=== PATIENT | male | born 1955 | race Caucasian/White ===

== ENCOUNTER 2018-05-09 12:40 | Emergency (ER) | payer BC, OTHER ==
[~2018-05-09] VITALS: Ht 188 cm; Wt 98.9 kg
[~2018-05-09 12:40] MED LIST: MULT-963 PO; OMG1KC PO; OXYC-12 PO
--- OUTSIDE RECORDS SUMMARY | 2018-05-09 12:48 | XMS REPORT | CCD ---
Author Author Nicole Hernandez Organization Nicole Hernandez MD, [facility] Address [address] [place] [address] Phone Care Team Providers Care Medicaid Business Analyst Name Role Phone PP Unavailable CCM Unavailable Summary Purpose Interface Exchange Insurance Providers Payer name Policy type / Coverage type Covered democrat ID Effective Begin Date Effective End Date [facility] [employer] [facility] [id number] 2014 Unknown Family history Father Diagnosis Age At Onset Stroke Unknown Hypertension Unknown Hyperlipidemia Unknown Diabetes Unknown Myocardial infarction Unknown Arthritis Unknown Mother Diagnosis Age At Onset Breast cancer Unknown Myocardial infarction Unknown Hyperlipidemia Unknown Hypertension Unknown Arthritis Unknown Sister Diagnosis Age At Onset No Family Disease Entered N/A Son Diagnosis Age At Onset No Family Disease Entered N/A Daughter Diagnosis Age At Onset No Family Disease Entered N/A Social History Social History Element Codes Description Effective Dates Marital status Unknown 04/27/2013 Number of children Unknown 2 04/27/2013 Employment Unknown Currently employed works at [employer] 04/27/[address]: 8183643 Former smoker quit 1980 04/27/2013 Alcohol history Unknown occasionally drinks alcohol 2 weekly 04/27/2013 Has the patient ever used illegal drugs? Unknown Has never used illegal drugs 04/27/2013 Allergies, Adverse Reactions, Alerts Substance Reaction Codes Entered Date Inactivated Date Status * NO KNOWN FOOD ALLERGIES Unknown 04/27/2013 No Inactive Date Active Seasonal Unknown 04/27/2013 No Inactive Date Active [id number] REDUCTASE INHIBITORS myalgias Unknown 2014 No Inactive Date Active Past Medical History Illness Codes Condition Status Onset Date Resolved Date Essential (primary) hypertension ICD-9: 401.1 ICD-10: I10 Active 08/14/2016 Unknown Mixed hyperlipidemia ICD-9: 272.2 ICD-10: E78.2 Active 02/11/2017 Unknown Impaired fasting glucose ICD-9: 790.21 ICD-10: R73.01 Active 03/05/2017 Unknown Other allergic rhinitis ICD-9: 477.8 ICD-10: J30.89 Active 03/05/2017 Unknown Other malaise ICD-9: 780.79 ICD-10: R53.81 Active 03/05/2017 Unknown Encounter for general adult medical examination with abnormal findings ICD-9: V70.0 ICD-10: Z00.01 Active 08/14/2016 Unknown Impaired fasting glucose ICD-9: 790.29 ICD-10: R73.01 Active 08/14/2016 Unknown Mixed hyperlipidemia ICD-9: 272.4 ICD-10: E78.2 Active 08/24/2013 Unknown Abrasion, right lower leg, initial encounter ICD-9: 916.0 ICD-10: S80.811A Active 05/06/2016 Unknown Cough ICD-9: 786.2 ICD-10: R05 Active 05/06/2016 Unknown Essential (primary) hypertension ICD-9: 401.9 ICD-10: I10 Active 08/24/2013 Unknown Pain in left knee ICD- 9: 719.46 ICD-10: M25.562 Active 10/18/2015 Unknown Pain in right knee ICD -9: 719.46 ICD-10: M25.561 Active 10/18/2015 Unknown Bilateral primary osteoarthritis of knee ICD-9: 715.16 ICD-10: M17.0 Active 05/08/2015 Unknown Primary generalized (osteo)arthritis ICD-9: 715.09 ICD-10: M15.0 Active 05/08/2015 Unknown Acute upper respiratory infection, unspecified ICD-9: 465.9 ICD-10: J06.9 Active 01/02/2015 Unknown DIABETES TYPE II ICD-9 : 250.00 Active 07/25/2014 Unknown ESSENTIAL HYPERTENSION ICD-9: 401.9 Active 08/24/2013 Unknown Routine medical exam ICD-9: V70.0 Active 11/07/2014 Unknown Diabetes Unknown Active 07/26/2014 Unknown Rash ICD-9: 782.1 Active 06/17/2014 Unknown Elevated hemoglobin ICD-9: 282.7 Active 04/14/2014 Unknown Elevated blood sugar ICD-9: 790.29 Active 04/05/2014 Unknown Right flank pain ICD-9 : 789.09 Active 04/05/2014 Unknown Sacroiliitis ICD-9: 720.2 Active 04/05/2014 Unknown TMJ arthralgia ICD-9: 524.62 Active 10/04/2013 Unknown Elevated bilirubin ICD -9: 782.4 Active 08/24/2013 Unknown HYPERLIPIDEMIA ICD-9: 272.4 Active 08/24/2013 Unknown Hyperlipidemia Unknown Active 05/11/2013 Unknown Hernia Unknown Active 08/30/2012 Unknown Hypertension Unknown Active 04/27/2013 Unknown kidney stones Unknown Active 04/27/2013 Unknown External hordeolum ICD -9: 373.11 Active 04/27/2013 Unknown Problems Condition Codes Effective Dates Condition Status Essential (primary) hypertension ICD-9: 401.1 ICD-10: I10 08/14/2016 Active Mixed hyperlipidemia ICD-9: 272.2 ICD-10: E78.2 02/11/2017 Active Impaired fasting glucose ICD-9: 790.21 ICD-10: R73.01 03/05/2017 Active Other allergic rhinitis ICD-9: 477.8 ICD-10: J30.89 03/05/2017 Active Other malaise ICD-9: 780.79 ICD-10: R53.81 03/05/2017 Active Encounter for general adult medical examination with abnormal findings ICD-9: V70.0 ICD-10: Z00.01 08/14/2016 Active Impaired fasting glucose ICD-9: 790.29 ICD-10: R73.01 08/14/2016 Active Mixed hyperlipidemia ICD-9: 272.4 ICD-10: E78.2 08/24/2013 Active Abrasion, right lower leg, initial encounter ICD-9: 916.0 ICD-10: S80.811A 05/06/2016 Active Cough ICD-9: 786.2 ICD-10: R05 05/06/2016 Active Essential (primary) hypertension ICD-9: 401.9 ICD-10: I10 08/24/2013 Active Pain in left knee ICD- 9: 719.46 ICD-10: M25.562 10/18/2015 Active Pain in right knee ICD -9: 719.46 ICD-10: M25.561 10/18/2015 Active Bilateral primary osteoarthritis of knee ICD-9: 715.16 ICD-10: M17.0 05/08/2015 Active Primary generalized (osteo)arthritis ICD-9: 715.09 ICD-10: M15.0 05/08/2015 Active Acute upper respiratory infection, unspecified ICD-9: 465.9 ICD-10: J06.9 01/02/2015 Active DIABETES TYPE II ICD-9 : 250.00 07/25/2014 Active ESSENTIAL HYPERTENSION ICD-9: 401.9 08/24/2013 Active Routine medical exam ICD-9: V70.0 11/07/2014 Active Diabetes Unknown 07/26/2014 Active Rash ICD-9: 782.1 06/17/2014 Active Elevated hemoglobin ICD-9: 282.7 04/14/2014 Active Elevated blood sugar ICD-9: 790.29 04/05/2014 Active Right flank pain ICD-9 : 789.09 04/05/2014 Active Sacroiliitis ICD-9: 720.2 04/05/2014 Active TMJ arthralgia ICD-9: 524.62 10/04/2013 Active Elevated bilirubin ICD -9: 782.4 08/24/2013 Active HYPERLIPIDEMIA ICD-9: 272.4 08/24/2013 Active Hyperlipidemia Unknown 05/11/2013 Active Hernia Unknown 08/30/2012 Active Hypertension Unknown 04/27/2013 Active kidney stones Unknown 04/27/2013 Active External hordeolum ICD -9: 373.11 04/27/2013 Active Medications Medication Codes Instructions Start Date Stop Date Status Fill Instructions metoprolol succinate ER 25 mg tablet,extended release 24 hr RxNorm: 634573 1 TABLET(S) PO DAILY 1 TABLET(S) PO DAILY 04/30/2018 03/25/2019 Active Zithromax Z-Kennedy 250 mg tablet RxNorm: 913439 1 Tablet(s) PO UD 06/12/2017 06/16/2017 Inactive zpack metoprolol succinate ER 25 mg tablet,extended release 24 hr RxNorm: 919719 1 TABLET(S) PO DAILY 1 TABLET(S) PO DAILY 06/02/2017 04/27/2018 Inactive coenzyme Q10 10 mg tablet RxNorm: 731536 1 Tablet(s) PO daily 09/06/2016 09/05/2016 Inactive atorvastatin 20 mg tablet RxNorm: 523512 1 Tablet(s) PO every other day at bedtime 09/06/2016 09/05/2016 Inactive atorvastatin 20 mg tablet RxNorm: 024951 1 Tablet(s) PO every other day at bedtime 09/06/2016 02/10/2017 Inactive coenzyme Q10 10 mg tablet RxNorm: 411248 1 Tablet(s) PO daily 09/06/2016 02/10/2017 Inactive metoprolol succinate ER 25 mg tablet,extended release 24 hr RxNorm: 641111 1 TABLET(S) PO DAILY 1 TABLET(S) PO DAILY 07/01/2016 05/26/2017 Inactive Kenalog 40 mg/mL suspension for injection RxNorm: 5943715 1 Milliliter(s) Inj 05/06/2016 05/06/2016 Inactive mupirocin 2 % topical ointment RxNorm: 533496 1 Application TOP BID 05/06/2016 05/15/2016 Inactive ceftriaxone 500 mg solution for injection RxNorm: 2068515 1 Milliliter(s) Inj 05/06/2016 05/06/2016 Inactive Zithromax Z-Kennedy 250 mg tablet RxNorm: 317685 1 Tablet(s) PO UD 05/06/2016 05/10/2016 Inactive zpack Voltaren 1 % topical gel RxNorm: 951911 4 Gram(s) TOP QID 04/1804/17/2016 Inactive Voltaren 1 % topical gel RxNorm: 534159 4 Gram(s) TOP QID as needed 04/18/2016 01/18/2018 Inactive metoprolol succinate ER 25 mg tablet,extended release 24 hr RxNorm: 173708 1 Tablet(s) PO daily 1 TABLET(S) PO DAILY 06/12/2015 06/05/2016 Inactive Zithromax Z-Kennedy 250 mg tablet RxNorm: 901922 1 Tablet(s) PO UD 12/30/2014 01/03/2015 Inactive zpack Zithromax Z-Kennedy 250 mg tablet RxNorm: 181327 1 Tablet(s) PO UD 12/30/2014 12/29/2014 Inactive zpack metoprolol succinate ER 25 mg tablet,extended release 24 hr RxNorm: 364670 TAKE 1 TABLET BY MOUTH DAILY 12/13/20142017 Inactive Probiotic & Acidophilus 300 million cell-250 mg capsule RxNorm: 1 Capsule(s) PO BID 12/09/2014 12/15/2014 Inactive amoxicillin 875 mg tablet RxNorm: 355560 1 Tablet(s) PO BID 11/201412/15/2014 Inactive Probiotic & Acidophilus 300 million cell-250 mg capsule RxNorm: 1 Capsule(s) PO BID 12/09/2014 12/08/2014 Inactive amoxicillin 875 mg tablet RxNorm: 523360 1 Tablet(s) PO BID 11/201412/08/2014 Inactive metoprolol succinate ER 25 mg tablet,extended release 24 hr RxNorm: 934455 1 Tablet(s) PO daily 1 TABLET(S) PO DAILY 06/23/2014 06/11/2015 Inactive mupirocin 2 % topical ointment RxNorm: 050540 1 Application TOP BID 06/17/2014 06/23/2014 Inactive metoprolol succinate ER 25 mg tablet,extended release 24 hr RxNorm: 867556 1 TABLET(S) PO DAILY 05/23/2014 11/18/2014 Inactive metoprolol succinate ER 25 mg tablet,extended release 24 hr RxNorm: 183124 1 Tablet(s) PO daily 1 TABLET(S) PO DAILY 05/23/2014 06/22/2014 Inactive ketorolac 60 mg/2 mL intramuscular solution RxNorm: 978813 2 Milliliter(s) IM 04/05/2014 04/05/2014 Inactive metoprolol succinate ER 25 mg tablet,extended release 24 hr RxNorm: 042941 1 TABLET(S) PO DAILY 11/23/2013 05/21/2014 Inactive Kenalog 40 mg/mL suspension for injection RxNorm: 6704713 1 Milliliter(s) Inj 10/04/2013 10/04/2013 Inactive amoxicillin 875 mg tablet RxNorm: 041201 1 Tablet(s) PO BID 04/201309/07/2013 Inactive gemfibrozil 600 mg tablet RxNorm: 507899 1 Tablet(s) PO BID 10/28/2013 Inactive atorvastatin 10 mg tablet RxNorm: 085980 1 Tablet(s) PO QPM 01/201405/26/2013 Inactive metoprolol succinate ER 25 mg tablet,extended release 24 hr RxNorm: 847311 1 Tablet(s) PO daily 04/27/2013 11/22/2013 Inactive Gentak 0.3 % eye drops RxNorm: 403023 3 Drop(s) OPH QID 201305/06/2013 Inactive Advil 200 mg tablet RxNorm: 034582 1 Tablet(s) PO every other day No Start Date Active Fish Oil 1,000 mg capsule RxNorm: 1 Capsule(s) PO daily No Start Date Active multivitamin tablet RxNorm: 1 Tablet(s) PO daily No Start Date Active tramadol 50 mg tablet RxNorm: 098242 1 Tablet(s) PO every four to six hours prn No Start Date 05/08/2015 Inactive amoxicillin 875 mg tablet RxNorm: 907345 1 Tablet(s) PO BID No Start Date 08/31/2013 Inactive Crestor 10 mg tablet RxNorm: 850479 1 Tablet(s) PO three times weekly No Start Date 11/07/2014 Inactive Medication Administered Medication Codes Instructions Start Date Status Kenalog 40 mg/mL suspension for injection RxNorm: 4063661 1Milliliter 05/06/2016 No longer Active ceftriaxone 500 mg solution for injection RxNorm: 4011109 1Milliliter 05/06/2016 No longer Active ketorolac 60 mg/2 mL intramuscular solution RxNorm: 267375 2Milliliter 04/05/2014 No longer Active Kenalog 40 mg/mL suspension for injection RxNorm: 7147880 1Milliliter 10/04/2013 No longer Active Immunizations Vaccine Codes Date Status Influenza CVX: 141 04/27/2013 completed Assessments Condition Codes Effective Dates Mixed hyperlipidemia ICD-10: E78.2 ICD-9: 272.2 01/19/2018 Essential (primary) hypertension ICD-10: I10 ICD-9: 401.1 01/19/2018 Impaired fasting glucose ICD-10: R73.01 ICD-9: 790.21 03/05/2017 Other allergic rhinitis ICD-10: J30.89 ICD-9: 477.8 03/05/2017 Other malaise ICD-10: R53.81 ICD-9: 780.79 03/05/2017 Impaired fasting glucose ICD-10: R73.01 ICD-9: 790.29 08/14/2016 Mixed hyperlipidemia ICD-10: E78.2 ICD-9: 272.4 08/14/2016 Encounter for general adult medical examination with abnormal findings ICD-10: Z00.01 ICD-9: V70.0 08/14/2016 Cough ICD-10: R05 ICD-9: 786.2 05/06/2016 Abrasion, right lower leg, initial encounter ICD-10: S80.811A ICD-9: 916.0 05/06/2016 Pain in right knee ICD-10: M25.561 ICD-9: 719.46 10/19/2015 Essential (primary) hypertension ICD-10: I10 ICD-9: 401.9 10/19/2015 Pain in left knee ICD-10: M25.562 ICD-9: 719.46 10/19/2015 Bilateral primary osteoarthritis of knee ICD-10: M17.0 ICD-9: 715.16 05/09/2015 Primary generalized (osteo)arthritis ICD-10: M15.0 ICD-9: 715.09 05/09/2015 Acute upper respiratory infection, unspecified ICD-10: J06.9 ICD-9: 465.9 01/03/2015 Routine medical exam ICD-9: V70.0 2014 DIABETES TYPE II ICD-9: 250.00 2014 ESSENTIAL HYPERTENSION ICD-9: 401.9 11/08 Rash ICD-9: 782.1 06/17/2014 Elevated hemoglobin ICD-9: 282.7 2014 Elevated blood sugar ICD-9: 790.29 2014 Right flank pain ICD-9: 789.09 2014 Sacroiliitis ICD-9: 720.2 04/05/2014 TMJ arthralgia ICD-9: 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 back pain 04/05/2014 hypertension 12/28/2013 followup sore throat 10/04/2013 hypertension 08/24/2013 hypertension 05/11/2013 eye foreign body 04/27/2013 Results Observation Observation Code Item Item Code Result Date C A/B FLU 4158317 Influenza A Scr Negative 03/05/2017 C A/B FLU [id number] Influenza B Scr Negative 03/05/2017 C A/B FLU [id number] Influenza Intrp B AG: PRID:PT:NOSE:NOM:IF See Footnote 03/05/2017 GFR CALC 0571676 GFR AA >60 ML/MIN 04/05/2014 GFR CALC 0342953 GFR NON-AA >60 ML/MIN 04/05/2014 TSH 9713415 TSH 0.752 uIU/ML 04/05/2014 A1C HPLC [id number] A1C HPLC 98139-7 5.9 % 04/05/2014 CHEM 14 7455029 AST 19 U/L 04/05/2014 CHEM 14 4581836 ALT 16 IU/L 04/05/2014 CHEM 14 4481850 BUN 20 MG/DL 04/05/2014 CHEM 14 6300214 ALBUMIN 5.0 GM/DL 04/05/2014 CHEM 14 7632494 CHLORIDE 102 MMOL/L 04/05/2014 CHEM 14 0216111 BILI TOT 2.8 MG/DL 04/05/2014 CHEM 14 9605848 ALK PHOS 47 U/L 04/05/2014 CHEM 14 2514976 SODIUM 137 MMOL/L 04/05/2014 CHEM 14 5435688 CREATININE 1.05 MG/DL 04/05/2014 CHEM 14 9556833 CALCIUM 9.5 MG/DL 04/05/2014 CHEM 14 7078013 POTASSIUM 4.2 MMOL/L 04/05/2014 CHEM 14 2717545 PROT TOT 7.2 GM/DL 04/05/2014 CHEM 14 5697912 GLUCOSE 132 MG/DL 04/05/2014 CHEM 14 8887345 BICARB 25 MMOL/L 04/05/2014 CHEM 14 7786396 ANION GAP 10 MEQ/L 04/05/2014 CBC 1652084 WBC 9.0 10e9/L 04/05/2014 CBC [id number] RBC 5.97 10e12/L 04/05/2014 CBC 1933890 HGB 18.1 g/dL 04/05/2014 CBC 2053957 HCT DET 51.4 % 04/05/2014 CBC 4634155 MCV 86.1 fL 04/05/2014 CBC 5528312 MCH 30.3 pg 04/05/2014 CBC 9990339 MCHC 35.2 g/dL 04/05/2014 CBC 7720695 PLT 180 10e9/L 04/05/2014 CBC 7514107 MPV 11.1 fL 04/05/2014 CBC 1220967 KATHERIN % 85.9 % 04/05/2014 CBC 8157726 LY % 9.1 % 04/05/2014 CBC 2259941 MON % 4.7 % 04/05/2014 CBC 7004512 EOS % 0.2 % 04/05/2014 CBC 5940251 BASO % 0.1 % 04/05/2014 CBC 4369113 RDW 13.1 % 04/05/2014 CBC 3320340 ABS KATHERIN 7.73 10e9/L 04/05/2014 CBC 5304800 ABS LYMPH 0.82 10e9/L 04/05/2014 CBC 8785039 ABS MONO 0.42 10e9/L 04/05/2014 CBC [id number] ABS EOS 0.02 10e9/L 04/05/2014 CBC [id number] ABS BASO 0.01 10e9/L 04/05/2014 CBC 7298633 RDW-SD 40.3 fL 04/05/2014 Review of Systems System Result Effective Dates Constitutional No recent illness 2017 Constitutional No chills 01/19/2018 Constitutional No fatigue 01/19/2018 Constitutional No fever 01/19/2018 Constitutional No insomnia 01/19/2018 Constitutional No malaise 01/19/2018 Eyes No blindness 01/19/2018 Eyes No vision change 01/19/2018 Ears/Nose/Throat/Neck No dental pain Ears/Nose/Throat/Neck No dizziness 2017 Ears/Nose/Throat/Neck No dysphagia 2017 Ears/Nose/Throat/Neck No headache 2017 Ears/Nose/Throat/Neck No hearing loss Ears/Nose/Throat/Neck No nasal allergies 01/19/2018 Ears/Nose/Throat/Neck No sore throat Ears/Nose/Throat/Neck No postnasal drip 01/19/2018 Ears/Nose/Throat/Neck No sinus congestion 01/19/2018 Cardiovascular No chest pain/pressure Cardiovascular No dyspnea 01/19/2018 Cardiovascular No edema 01/19/2018 Cardiovascular No exercise intolerance Cardiovascular No fatigue 01/19/2018 Cardiovascular No near-syncope/dizziness 01/19/2018 Respiratory No chest tightness 2017 Respiratory No cigarette smoking 2017 Respiratory No cough 01/19/2018 Respiratory No dyspnea 01/19/2018 Respiratory No pedal edema 01/19/2018 Respiratory No snoring 01/19/2018 Respiratory No wheezing 01/19/2018 Gastrointestinal No hemorrhoids 2017 Gastrointestinal No abdominal pain 2017 Gastrointestinal No constipation 2017 Gastrointestinal No diarrhea 01/19/2018 Gastrointestinal No gastroesophageal reflux 01/19/2018 Gastrointestinal No melena 01/19/2018 Gastrointestinal No nausea 01/19/2018 Gastrointestinal No vomiting 01/19/2018 Musculoskeletal No stiffness 01/19/2018 Musculoskeletal No swelling 01/19/2018 Musculoskeletal No muscle weakness 2017 Musculoskeletal No myalgias 01/19/2018 Dermatologic No rash 01/19/2018 Dermatologic No scar 01/19/2018 Psychiatric No anxiety 01/19/2018 Psychiatric No depression 01/19/2018 Constitutional No recent illness 2017 Constitutional No chills 08/12/2017 Constitutional No fatigue 08/12/2017 Constitutional No fever 08/12/2017 Constitutional No insomnia 08/12/2017 Constitutional No malaise 08/12/2017 Eyes No blindness 08/12/2017 Eyes No vision change 08/12/2017 Ears/Nose/Throat/Neck No dental pain 01/2018 Ears/Nose/Throat/Neck No dizziness 2017 Ears/Nose/Throat/Neck No dysphagia 2017 Ears/Nose/Throat/Neck No headache 2017 Ears/Nose/Throat/Neck No hearing loss 01/2018 Ears/Nose/Throat/Neck No nasal allergies 08/12/2017 Ears/Nose/Throat/Neck No sore throat 01/2018 Ears/Nose/Throat/Neck No postnasal drip 08/12/2017 Ears/Nose/Throat/Neck No sinus congestion 08/12/2017 Cardiovascular No chest pain/pressure 01/2018 Cardiovascular No dyspnea 08/12/2017 Cardiovascular No edema 08/12/2017 Cardiovascular No exercise intolerance Cardiovascular No fatigue 08/12/2017 Cardiovascular No near-syncope/dizziness 08/12/2017 Respiratory No chest tightness 2017 Respiratory No cigarette smoking 2017 Respiratory No cough 08/12/2017 Respiratory No dyspnea 08/12/2017 Respiratory No pedal edema 08/12/2017 Respiratory No snoring 08/12/2017 Respiratory No wheezing 08/12/2017 Gastrointestinal No hemorrhoids 2017 Gastrointestinal No abdominal pain 2017 Gastrointestinal No constipation 2017 Gastrointestinal No diarrhea 08/12/2017 Gastrointestinal No gastroesophageal reflux 08/12/2017 Gastrointestinal No melena 08/12/2017 Gastrointestinal No nausea 08/12/2017 Gastrointestinal No vomiting 08/12/2017 Genitourinary/Nephrology No dysuria 08/12 Genitourinary/Nephrology No nocturia 01/2018 Genitourinary/Nephrology No urinary incontinence 08/12/2017 Musculoskeletal No stiffness 08/12/2017 Musculoskeletal No swelling 08/12/2017 Musculoskeletal No muscle weakness 2017 Musculoskeletal No myalgias 08/12/2017 Dermatologic No rash 08/12/2017 Dermatologic No scar 08/12/2017 Neurologic No dizziness 08/12/2017 Neurologic No headache 08/12/2017 Neurologic No neck pain 08/12/2017 Neurologic No syncope 08/12/2017 Psychiatric No anxiety 08/12/2017 Psychiatric No depression 08/12/2017 Constitutional recent illness 03/05/2017 Constitutional chills 03/05/2017 Constitutional No diaphoresis 03/05/2017 Constitutional fatigue 03/05/2017 Constitutional No fever 03/05/2017 Constitutional malaise 03/05/2017 Eyes No eye erythema 03/05/2017 Ears/Nose/Throat/Neck nasal allergies 05/2017 Ears/Nose/Throat/Neck nasal discharge 05/2017 Ears/Nose/Throat/Neck postnasal drip 05/2017 Ears/Nose/Throat/Neck No sinus congestion 03/05/2017 Ears/Nose/Throat/Neck No sore throat 05/2017 Cardiovascular No chest pain/pressure 05/2017 Respiratory No cough 03/05/2017 Respiratory No chest congestion 2017 Gastrointestinal No abdominal pain 2017 Neurologic No alteration of consciousness 03/05/2017 Neurologic No mental status change 2017 Constitutional No recent illness 2016 Constitutional No chills 02/11/2017 Constitutional No fatigue 02/11/2017 Constitutional No fever 02/11/2017 Constitutional No insomnia 02/11/2017 Constitutional No malaise 02/11/2017 Eyes No blindness 02/11/2017 Eyes No vision change 02/11/2017 Ears/Nose/Throat/Neck No dental pain 01/2017 Ears/Nose/Throat/Neck No dizziness 2016 Ears/Nose/Throat/Neck No dysphagia 2016 Ears/Nose/Throat/Neck No headache 2016 Ears/Nose/Throat/Neck No hearing loss 01/2017 Ears/Nose/Throat/Neck No nasal allergies 02/11/2017 Ears/Nose/Throat/Neck No sore throat 01/2017 Ears/Nose/Throat/Neck No postnasal drip 02/11/2017 Ears/Nose/Throat/Neck No sinus congestion 02/11/2017 Cardiovascular No chest pain/pressure 01/2017 Cardiovascular No dyspnea 02/11/2017 Cardiovascular No edema 02/11/2017 Cardiovascular No exercise intolerance Cardiovascular No fatigue 02/11/2017 Cardiovascular No near-syncope/dizziness 02/11/2017 Respiratory No chest tightness 2016 Respiratory No cigarette smoking 2016 Respiratory No cough 02/11/2017 Respiratory No dyspnea 02/11/2017 Respiratory No pedal edema 02/11/2017 Respiratory No snoring 02/11/2017 Respiratory No wheezing 02/11/2017 Gastrointestinal No hemorrhoids 2016 Gastrointestinal No abdominal pain 2016 Gastrointestinal No constipation 2016 Gastrointestinal No diarrhea 02/11/2017 Gastrointestinal No gastroesophageal reflux 02/11/2017 Gastrointestinal No melena 02/11/2017 Gastrointestinal No nausea 02/11/2017 Gastrointestinal No vomiting 02/11/2017 Genitourinary/Nephrology No dysuria 02/11 Genitourinary/Nephrology No nocturia 01/2017 Genitourinary/Nephrology No urinary incontinence 02/11/2017 Musculoskeletal No stiffness 02/11/2017 Musculoskeletal No swelling 02/11/2017 Musculoskeletal No muscle weakness 2016 Musculoskeletal No myalgias 02/11/2017 Dermatologic No rash 02/11/2017 Dermatologic No scar 02/11/2017 Neurologic No dizziness 02/11/2017 Neurologic No headache 02/11/2017 Neurologic No neck pain 02/11/2017 Neurologic No syncope 02/11/2017 Psychiatric No anxiety 02/11/2017 Psychiatric No depression 02/11/2017 Constitutional No recent illness 2016 Constitutional No chills 08/14/2016 Constitutional No fatigue 08/14/2016 Constitutional No fever 08/14/2016 Constitutional No insomnia 08/14/2016 Constitutional No malaise 08/14/2016 Eyes No blindness 08/14/2016 Eyes No vision change 08/14/2016 Ears/Nose/Throat/Neck No dental pain Ears/Nose/Throat/Neck No dizziness 2016 Ears/Nose/Throat/Neck No dysphagia 2016 Ears/Nose/Throat/Neck No headache 2016 Ears/Nose/Throat/Neck No hearing loss Ears/Nose/Throat/Neck No nasal allergies 08/14/2016 Ears/Nose/Throat/Neck No sore throat Ears/Nose/Throat/Neck No postnasal drip 08/14/2016 Ears/Nose/Throat/Neck No sinus congestion 08/14/2016 Cardiovascular No chest pain/pressure Cardiovascular No dyspnea 08/14/2016 Cardiovascular No edema 08/14/2016 Cardiovascular No exercise intolerance Cardiovascular No fatigue 08/14/2016 Cardiovascular No near-syncope/dizziness 08/14/2016 Respiratory No chest tightness 2016 Respiratory No cigarette smoking 2016 Respiratory No cough 08/14/2016 Respiratory No dyspnea 08/14/2016 Respiratory No pedal edema 08/14/2016 Respiratory No snoring 08/14/2016 Respiratory No wheezing 08/14/2016 Gastrointestinal No hemorrhoids 2016 Gastrointestinal No abdominal pain 2016 Gastrointestinal No constipation 2016 Gastrointestinal No diarrhea 08/14/2016 Gastrointestinal No gastroesophageal reflux 08/14/2016 Gastrointestinal No melena 08/14/2016 Gastrointestinal No nausea 08/14/2016 Gastrointestinal No vomiting 08/14/2016 Genitourinary/Nephrology No dysuria 08/14 Genitourinary/Nephrology No nocturia Genitourinary/Nephrology No urinary incontinence 08/14/2016 Musculoskeletal No stiffness 08/14/2016 Musculoskeletal No swelling 08/14/2016 Musculoskeletal No muscle weakness 2016 Musculoskeletal No myalgias 08/14/2016 Dermatologic No rash 08/14/2016 Dermatologic No scar 08/14/2016 Neurologic No dizziness 08/14/2016 Neurologic No headache 08/14/2016 Neurologic No neck pain 08/14/2016 Neurologic No syncope 08/14/2016 Psychiatric No anxiety 08/14/2016 Psychiatric No depression 08/14/2016 Constitutional recent illness 05/06/2016 Constitutional No anorexia 05/06/2016 Constitutional No night sweats 2016 Constitutional chills 05/06/2016 Constitutional No diaphoresis 05/06/2016 Constitutional fatigue 05/06/2016 Constitutional fever 05/06/2016 Constitutional No insomnia 05/06/2016 Constitutional No malaise 05/06/2016 Constitutional No weight loss 05/06/2016 Constitutional No weight gain 05/06/2016 Eyes No eye erythema 05/06/2016 Eyes No eye discharge 05/06/2016 Ears/Nose/Throat/Neck No headache 2016 Ears/Nose/Throat/Neck nasal discharge 08/2016 Ears/Nose/Throat/Neck No otitis media 08/2016 Ears/Nose/Throat/Neck sinus congestion Ears/Nose/Throat/Neck No sore throat 08/2016 Cardiovascular No chest pain/pressure 08/2016 Cardiovascular No dyspnea 05/06/2016 Cardiovascular No edema 05/06/2016 Respiratory productive sputum 05/06/2016 Respiratory chest congestion 05/06/2016 Respiratory cough 05/06/2016 Gastrointestinal No hemorrhoids 2016 Genitourinary/Nephrology No dysuria 05/06 Musculoskeletal No joint complaint 2016 Dermatologic No rash 05/06/2016 Neurologic No alteration of consciousness 05/06/2016 Constitutional No recent illness 2015 Constitutional No chills 02/13/2016 Constitutional No fatigue 02/13/2016 Constitutional No fever 02/13/2016 Constitutional No insomnia 02/13/2016 Constitutional No malaise 02/13/2016 Eyes No blindness 02/13/2016 Eyes No vision change 02/13/2016 Ears/Nose/Throat/Neck No dental pain Ears/Nose/Throat/Neck No dizziness 2015 Ears/Nose/Throat/Neck No dysphagia 2015 Ears/Nose/Throat/Neck No headache 2015 Ears/Nose/Throat/Neck No hearing loss Ears/Nose/Throat/Neck No nasal allergies 02/13/2016 Ears/Nose/Throat/Neck No sore throat Ears/Nose/Throat/Neck No postnasal drip 02/13/2016 Ears/Nose/Throat/Neck No sinus congestion 02/13/2016 Cardiovascular No chest pain/pressure Cardiovascular No dyspnea 02/13/2016 Cardiovascular No edema 02/13/2016 Cardiovascular No exercise intolerance Cardiovascular No fatigue 02/13/2016 Cardiovascular No near-syncope/dizziness 02/13/2016 Respiratory No chest tightness 2015 Respiratory No cigarette smoking 2015 Respiratory No cough 02/13/2016 Respiratory No dyspnea 02/13/2016 Respiratory No pedal edema 02/13/2016 Respiratory No snoring 02/13/2016 Respiratory No wheezing 02/13/2016 Gastrointestinal No hemorrhoids 2015 Gastrointestinal No abdominal pain 2015 Gastrointestinal No constipation 2015 Gastrointestinal No diarrhea 02/13/2016 Gastrointestinal No gastroesophageal reflux 02/13/2016 Gastrointestinal No melena 02/13/2016 Gastrointestinal No nausea 02/13/2016 Gastrointestinal No vomiting 02/13/2016 Genitourinary/Nephrology No dysuria 02/12 Genitourinary/Nephrology No nocturia Genitourinary/Nephrology No urinary incontinence 02/13/2016 Musculoskeletal No stiffness 02/13/2016 Musculoskeletal No swelling 02/13/2016 Musculoskeletal No muscle weakness 2015 Musculoskeletal No myalgias 02/13/2016 Dermatologic No rash 02/13/2016 Dermatologic No scar 02/13/2016 Neurologic No dizziness 02/13/2016 Neurologic No headache 02/13/2016 Neurologic No neck pain 02/13/2016 Neurologic No syncope 02/13/2016 Psychiatric No anxiety 02/13/2016 Psychiatric No depression 02/13/2016 Constitutional No recent illness 2015 Constitutional No chills 10/19/2015 Constitutional fatigue 10/19/2015 Constitutional No fever 10/19/2015 Constitutional No insomnia 10/19/2015 Constitutional No malaise 10/19/2015 Eyes No blindness 10/19/2015 Eyes No vision change 10/19/2015 Ears/Nose/Throat/Neck No dental pain Ears/Nose/Throat/Neck No dizziness 2015 Ears/Nose/Throat/Neck No dysphagia 2015 Ears/Nose/Throat/Neck No headache 2015 Ears/Nose/Throat/Neck No hearing loss Ears/Nose/Throat/Neck No nasal allergies 10/19/2015 Ears/Nose/Throat/Neck No sore throat Ears/Nose/Throat/Neck No postnasal drip 10/19/2015 Ears/Nose/Throat/Neck No sinus congestion 10/19/2015 Cardiovascular No chest pain/pressure Cardiovascular No dyspnea 10/19/2015 Cardiovascular No edema 10/19/2015 Cardiovascular No exercise intolerance Cardiovascular No fatigue 10/19/2015 Cardiovascular No near-syncope/dizziness 10/19/2015 Respiratory No chest tightness 2015 Respiratory No cigarette smoking 2015 Respiratory No cough 10/19/2015 Respiratory No dyspnea 10/19/2015 Respiratory No pedal edema 10/19/2015 Respiratory No snoring 10/19/2015 Respiratory No wheezing 10/19/2015 Gastrointestinal No hemorrhoids 2015 Gastrointestinal No abdominal pain 2015 Gastrointestinal No constipation 2015 Gastrointestinal No diarrhea 10/19/2015 Gastrointestinal No gastroesophageal reflux 10/19/2015 Gastrointestinal No melena 10/19/2015 Gastrointestinal No nausea 10/19/2015 Gastrointestinal No vomiting 10/19/2015 Genitourinary/Nephrology No dysuria 10/18 Genitourinary/Nephrology No nocturia Genitourinary/Nephrology No urinary incontinence 10/19/2015 Musculoskeletal stiffness 10/19/2015 Musculoskeletal No swelling 10/19/2015 Musculoskeletal No muscle weakness 2015 Musculoskeletal No myalgias 10/19/2015 Dermatologic No rash 10/19/2015 Dermatologic No scar 10/19/2015 Neurologic No dizziness 10/19/2015 Neurologic No headache 10/19/2015 Neurologic No neck pain 10/19/2015 Neurologic No syncope 10/19/2015 Psychiatric No anxiety 10/19/2015 Psychiatric No depression 10/19/2015 Musculoskeletal arthralgia(s) 10/19/2015 Constitutional No recent illness 2015 Constitutional No chills 05/09/2015 Constitutional No fatigue 05/09/2015 Constitutional No fever 05/09/2015 Constitutional No insomnia 05/09/2015 Constitutional No malaise 05/09/2015 Eyes No blindness 05/09/2015 Eyes No vision change 05/09/2015 Ears/Nose/Throat/Neck No dental pain 10/2015 Ears/Nose/Throat/Neck No dizziness 2015 Ears/Nose/Throat/Neck No dysphagia 2015 Ears/Nose/Throat/Neck No headache 2015 Ears/Nose/Throat/Neck No hearing loss 10/2015 Ears/Nose/Throat/Neck No nasal allergies 05/09/2015 Ears/Nose/Throat/Neck No sore throat 10/2015 Ears/Nose/Throat/Neck No postnasal drip 05/09/2015 Ears/Nose/Throat/Neck No sinus congestion 05/09/2015 Cardiovascular No chest pain/pressure 10/2015 Cardiovascular No dyspnea 05/09/2015 Cardiovascular No edema 05/09/2015 Cardiovascular No exercise intolerance Cardiovascular No fatigue 05/09/2015 Cardiovascular No near-syncope/dizziness 05/09/2015 Respiratory No chest tightness 2015 Respiratory No cigarette smoking 2015 Respiratory No cough 05/09/2015 Respiratory No dyspnea 05/09/2015 Respiratory No pedal edema 05/09/2015 Respiratory No snoring 05/09/2015 Respiratory No wheezing 05/09/2015 Gastrointestinal No hemorrhoids 2015 Gastrointestinal No abdominal pain 2015 Gastrointestinal No constipation 2015 Gastrointestinal No diarrhea 05/09/2015 Gastrointestinal No gastroesophageal reflux 05/09/2015 Gastrointestinal No melena 05/09/2015 Gastrointestinal No nausea 05/09/2015 Gastrointestinal No vomiting 05/09/2015 Genitourinary/Nephrology No dysuria 05/08 Genitourinary/Nephrology No nocturia 10/2015 Genitourinary/Nephrology No urinary incontinence 05/09/2015 Musculoskeletal No stiffness 05/09/2015 Musculoskeletal No swelling 05/09/2015 Musculoskeletal No muscle weakness 2015 Musculoskeletal No myalgias 05/09/2015 Dermatologic No rash 05/09/2015 Dermatologic No scar 05/09/2015 Neurologic No dizziness 05/09/2015 Neurologic No headache 05/09/2015 Neurologic No neck pain 05/09/2015 Neurologic No syncope 05/09/2015 Psychiatric No anxiety 05/09/2015 Psychiatric No depression 05/09/2015 Constitutional recent illness 01/03/2015 Constitutional No anorexia 01/03/2015 Constitutional No night sweats 2014 Constitutional No chills 01/03/2015 Constitutional No diaphoresis 01/03/2015 Constitutional No fatigue 01/03/2015 Constitutional No fever 01/03/2015 Constitutional No insomnia 01/03/2015 Constitutional No malaise 01/03/2015 Constitutional No weight loss 01/03/2015 Constitutional No weight gain 01/03/2015 Eyes No eye discharge 01/03/2015 Eyes No eye erythema 01/03/2015 Ears/Nose/Throat/Neck nasal allergies 05/2014 Ears/Nose/Throat/Neck nasal discharge 05/2014 Ears/Nose/Throat/Neck No otalgia 2014 Ears/Nose/Throat/Neck sinus congestion Ears/Nose/Throat/Neck No sore throat 05/2014 Cardiovascular No chest pain/pressure 05/2014 Respiratory No productive sputum 2014 Respiratory cough 01/03/2015 Gastrointestinal No abdominal pain 2014 Gastrointestinal No constipation 2014 Gastrointestinal No diarrhea 01/03/2015 Genitourinary/Nephrology No dysuria 01/03 Musculoskeletal No joint complaint 2014 Dermatologic No rash 01/03/2015 Dermatologic No sores 01/03/2015 Neurologic No alteration of consciousness 01/03/2015 Constitutional No recent illness 2014 Constitutional No chills 11/08/2014 Constitutional No fatigue 11/08/2014 Constitutional No fever 11/08/2014 Constitutional No insomnia 11/08/2014 Constitutional No malaise 11/08/2014 Eyes No blindness 11/08/2014 Eyes No vision change 11/08/2014 Ears/Nose/Throat/Neck No dental pain 10/2014 Ears/Nose/Throat/Neck No dizziness 2014 Ears/Nose/Throat/Neck No dysphagia 2014 Ears/Nose/Throat/Neck No headache 2014 Ears/Nose/Throat/Neck No hearing loss 10/2014 Ears/Nose/Throat/Neck No nasal allergies 11/08/2014 Ears/Nose/Throat/Neck No sore throat 10/2014 Ears/Nose/Throat/Neck No postnasal drip 11/08/2014 Ears/Nose/Throat/Neck No sinus congestion 11/08/2014 Cardiovascular No chest pain/pressure 10/2014 Cardiovascular No dyspnea 11/08/2014 Cardiovascular No edema 11/08/2014 Cardiovascular No exercise intolerance Cardiovascular No fatigue 11/08/2014 Cardiovascular No near-syncope/dizziness 11/08/2014 Respiratory No chest tightness 2014 Respiratory No cigarette smoking 2014 Respiratory No cough 11/08/2014 Respiratory No dyspnea 11/08/2014 Respiratory No pedal edema 11/08/2014 Respiratory No snoring 11/08/2014 Respiratory No wheezing 11/08/2014 Gastrointestinal No hemorrhoids 2014 Gastrointestinal No abdominal pain 2014 Gastrointestinal No constipation 2014 Gastrointestinal No diarrhea 11/08/2014 Gastrointestinal No gastroesophageal reflux 11/08/2014 Gastrointestinal No melena 11/08/2014 Gastrointestinal No nausea 11/08/2014 Gastrointestinal No vomiting 11/08/2014 Genitourinary/Nephrology No dysuria 11/08 Genitourinary/Nephrology No nocturia 10/2014 Genitourinary/Nephrology No urinary incontinence 11/08/2014 Musculoskeletal No stiffness 11/08/2014 Musculoskeletal No swelling 11/08/2014 Musculoskeletal No muscle weakness 2014 Musculoskeletal No myalgias 11/08/2014 Dermatologic No rash 11/08/2014 Dermatologic No scar 11/08/2014 Neurologic No dizziness 11/08/2014 Neurologic No headache 11/08/2014 Neurologic No neck pain 11/08/2014 Neurologic No syncope 11/08/2014 Psychiatric No anxiety 11/08/2014 Psychiatric No depression 11/08/2014 Constitutional No recent illness 2014 Constitutional No chills 07/26/2014 Constitutional No fatigue 07/26/2014 Constitutional No fever 07/26/2014 Constitutional No insomnia 07/26/2014 Constitutional No malaise 07/26/2014 Ears/Nose/Throat/Neck No dental pain Ears/Nose/Throat/Neck No dizziness 2014 Ears/Nose/Throat/Neck No dysphagia 2014 Ears/Nose/Throat/Neck No headache 2014 Ears/Nose/Throat/Neck No hearing loss Ears/Nose/Throat/Neck No nasal allergies 07/26/2014 Ears/Nose/Throat/Neck No sore throat Ears/Nose/Throat/Neck No postnasal drip 07/26/2014 Ears/Nose/Throat/Neck No sinus congestion 07/26/2014 Cardiovascular No chest pain/pressure Cardiovascular No dyspnea 07/26/2014 Cardiovascular No edema 07/26/2014 Cardiovascular No exercise intolerance Cardiovascular No fatigue 07/26/2014 Cardiovascular No near-syncope/dizziness 07/26/2014 Respiratory No chest tightness 2014 Respiratory No cigarette smoking 2014 Respiratory No cough 07/26/2014 Respiratory No dyspnea 07/26/2014 Respiratory No pedal edema 07/26/2014 Respiratory No snoring 07/26/2014 Respiratory No wheezing 07/26/2014 Gastrointestinal No hemorrhoids 2014 Gastrointestinal No abdominal pain 2014 Gastrointestinal No constipation 2014 Gastrointestinal No diarrhea 07/26/2014 Gastrointestinal No gastroesophageal reflux 07/26/2014 Gastrointestinal No melena 07/26/2014 Gastrointestinal No nausea 07/26/2014 Gastrointestinal No vomiting 07/26/2014 Genitourinary/Nephrology No dysuria 07/26 Genitourinary/Nephrology No nocturia Genitourinary/Nephrology No urinary incontinence 07/26/2014 Musculoskeletal No stiffness 07/26/2014 Musculoskeletal No swelling 07/26/2014 Musculoskeletal No muscle weakness 2014 Musculoskeletal No myalgias 07/26/2014 Dermatologic No rash 07/26/2014 Dermatologic No scar 07/26/2014 Neurologic No dizziness 07/26/2014 Neurologic No headache 07/26/2014 Neurologic No neck pain 07/26/2014 Neurologic No syncope 07/26/2014 Psychiatric No anxiety 07/26/2014 Psychiatric No depression 07/26/2014 Eyes No blindness 07/26/2014 Eyes No vision change 07/26/2014 Constitutional No recent illness 2014 Constitutional No anorexia 04/14/2014 Constitutional No night sweats 2014 Constitutional No chills 04/14/2014 Constitutional No diaphoresis 04/14/2014 Constitutional No fatigue 04/14/2014 Constitutional No fever 04/14/2014 Constitutional No insomnia 04/14/2014 Constitutional No malaise 04/14/2014 Constitutional No weight loss 04/14/2014 Constitutional No weight gain 04/14/2014 Constitutional recent illness 04/05/2014 Constitutional No anorexia 04/05/2014 Constitutional No night sweats 2014 Constitutional No chills 04/05/2014 Constitutional No diaphoresis 04/05/2014 Constitutional No fatigue 04/05/2014 Constitutional No fever 04/05/2014 Constitutional No insomnia 04/05/2014 Constitutional No malaise 04/05/2014 Constitutional No weight loss 04/05/2014 Constitutional No weight gain 04/05/2014 Eyes No eye discharge 04/05/2014 Eyes No eye erythema 04/05/2014 Ears/Nose/Throat/Neck No dizziness 2014 Ears/Nose/Throat/Neck No headache 2014 Cardiovascular No chest pain/pressure 05/2014 Cardiovascular No dyspnea 04/05/2014 Cardiovascular No edema 04/05/2014 Respiratory No productive sputum 2014 Respiratory No chest congestion 2014 Respiratory No cough 04/05/2014 Genitourinary/Nephrology No dysuria 04/05 Genitourinary/Nephrology No urinary frequency 04/05/2014 Genitourinary/Nephrology No urinary urgency 04/05/2014 Dermatologic No sores 04/05/2014 Dermatologic No rash 04/05/2014 Neurologic No alteration of consciousness 04/05/2014 Constitutional No recent illness 2013 Constitutional No chills 12/28/2013 Constitutional No fatigue 12/28/2013 Constitutional No fever 12/28/2013 Constitutional No insomnia 12/28/2013 Constitutional No malaise 12/28/2013 Ears/Nose/Throat/Neck No dental pain Ears/Nose/Throat/Neck No dizziness 2013 Ears/Nose/Throat/Neck No dysphagia 2013 Ears/Nose/Throat/Neck No headache 2013 Ears/Nose/Throat/Neck No hearing loss Ears/Nose/Throat/Neck No nasal allergies 12/28/2013 Ears/Nose/Throat/Neck No sore throat Ears/Nose/Throat/Neck No postnasal drip 12/28/2013 Ears/Nose/Throat/Neck No sinus congestion 12/28/2013 Cardiovascular No chest pain/pressure Cardiovascular No dyspnea 12/28/2013 Cardiovascular No edema 12/28/2013 Cardiovascular No exercise intolerance Cardiovascular No fatigue 12/28/2013 Cardiovascular No near-syncope/dizziness 12/28/2013 Respiratory No chest tightness 2013 Respiratory No cigarette smoking 2013 Respiratory No cough 12/28/2013 Respiratory No dyspnea 12/28/2013 Respiratory No pedal edema 12/28/2013 Respiratory No snoring 12/28/2013 Respiratory No wheezing 12/28/2013 Gastrointestinal No hemorrhoids 2013 Gastrointestinal No abdominal pain 2013 Gastrointestinal No constipation 2013 Gastrointestinal No diarrhea 12/28/2013 Gastrointestinal No gastroesophageal reflux 12/28/2013 Gastrointestinal No melena 12/28/2013 Gastrointestinal No nausea 12/28/2013 Gastrointestinal No vomiting 12/28/2013 Genitourinary/Nephrology No dysuria 12/28 Genitourinary/Nephrology No nocturia Genitourinary/Nephrology No urinary incontinence 12/28/2013 Musculoskeletal No stiffness 12/28/2013 Musculoskeletal No swelling 12/28/2013 Musculoskeletal No muscle weakness 2013 Musculoskeletal No myalgias 12/28/2013 Dermatologic No rash 12/28/2013 Dermatologic No scar 12/28/2013 Neurologic No dizziness 12/28/2013 Neurologic No headache 12/28/2013 Neurologic No neck pain 12/28/2013 Neurologic No syncope 12/28/2013 Psychiatric No anxiety 12/28/2013 Psychiatric No depression 12/28/2013 Constitutional No recent illness 2013 Constitutional No chills 10/04/2013 Constitutional No fatigue 10/04/2013 Constitutional No fever 10/04/2013 Constitutional No insomnia 10/04/2013 Constitutional No malaise 10/04/2013 Cardiovascular No chest pain/pressure 06/2013 Cardiovascular No dyspnea 10/04/2013 Cardiovascular No edema 10/04/2013 Cardiovascular No exercise intolerance Cardiovascular No near-syncope/dizziness 10/04/2013 Respiratory No chest tightness 2013 Respiratory No cigarette smoking 2013 Respiratory No cough 10/04/2013 Respiratory No dyspnea 10/04/2013 Respiratory No pedal edema 10/04/2013 Respiratory No snoring 10/04/2013 Respiratory No wheezing 10/04/2013 Gastrointestinal No hemorrhoids 2013 Gastrointestinal No abdominal pain 2013 Gastrointestinal No constipation 2013 Gastrointestinal No diarrhea 10/04/2013 Gastrointestinal No gastroesophageal reflux 10/04/2013 Gastrointestinal No melena 10/04/2013 Gastrointestinal No nausea 10/04/2013 Gastrointestinal No vomiting 10/04/2013 Genitourinary/Nephrology No dysuria 10/04 Genitourinary/Nephrology No nocturia 06/2013 Genitourinary/Nephrology No urinary incontinence 10/04/2013 Musculoskeletal No stiffness 10/04/2013 Musculoskeletal No swelling 10/04/2013 Musculoskeletal No muscle weakness 2013 Musculoskeletal No myalgias 10/04/2013 Dermatologic No rash 10/04/2013 Dermatologic No scar 10/04/2013 Neurologic No neck pain 10/04/2013 Neurologic No syncope 10/04/2013 Psychiatric No anxiety 10/04/2013 Psychiatric No depression 10/04/2013 Constitutional No recent illness 2013 Constitutional No chills 08/24/2013 Constitutional No fatigue 08/24/2013 Constitutional No fever 08/24/2013 Constitutional No insomnia 08/24/2013 Constitutional No malaise 08/24/2013 Ears/Nose/Throat/Neck No dental pain Ears/Nose/Throat/Neck No dizziness 2013 Ears/Nose/Throat/Neck No dysphagia 2013 Ears/Nose/Throat/Neck No headache 2013 Ears/Nose/Throat/Neck No hearing loss Ears/Nose/Throat/Neck No nasal allergies 08/24/2013 Ears/Nose/Throat/Neck No sore throat Ears/Nose/Throat/Neck No postnasal drip 08/24/2013 Ears/Nose/Throat/Neck No sinus congestion 08/24/2013 Cardiovascular No chest pain/pressure Cardiovascular No dyspnea 08/24/2013 Cardiovascular No edema 08/24/2013 Cardiovascular No exercise intolerance Cardiovascular No fatigue 08/24/2013 Cardiovascular No near-syncope/dizziness 08/24/2013 Respiratory No chest tightness 2013 Respiratory No cigarette smoking 2013 Respiratory No cough 08/24/2013 Respiratory No dyspnea 08/24/2013 Respiratory No pedal edema 08/24/2013 Respiratory No snoring 08/24/2013 Respiratory No wheezing 08/24/2013 Gastrointestinal No hemorrhoids 2013 Gastrointestinal No abdominal pain 2013 Gastrointestinal No constipation 2013 Gastrointestinal No diarrhea 08/24/2013 Gastrointestinal No gastroesophageal reflux 08/24/2013 Gastrointestinal No melena 08/24/2013 Gastrointestinal No nausea 08/24/2013 Gastrointestinal No vomiting 08/24/2013 Genitourinary/Nephrology No dysuria 08/24 Genitourinary/Nephrology No nocturia Genitourinary/Nephrology No urinary incontinence 08/24/2013 Musculoskeletal No stiffness 08/24/2013 Musculoskeletal No swelling 08/24/2013 Musculoskeletal No muscle weakness 2013 Musculoskeletal No myalgias 08/24/2013 Dermatologic No rash 08/24/2013 Dermatologic No scar 08/24/2013 Neurologic No dizziness 08/24/2013 Neurologic No headache 08/24/2013 Neurologic No neck pain 08/24/2013 Neurologic No syncope 08/24/2013 Psychiatric No anxiety 08/24/2013 Psychiatric No depression 08/24/2013 Constitutional No recent illness 2013 Constitutional No chills 05/11/2013 Constitutional No fatigue 05/11/2013 Constitutional No fever 05/11/2013 Constitutional No insomnia 05/11/2013 Constitutional No malaise 05/11/2013 Ears/Nose/Throat/Neck No dental pain 01/2014 Ears/Nose/Throat/Neck No dizziness 2013 Ears/Nose/Throat/Neck No dysphagia 2013 Ears/Nose/Throat/Neck No headache 2013 Ears/Nose/Throat/Neck No hearing loss 01/2014 Ears/Nose/Throat/Neck No nasal allergies 05/11/2013 Ears/Nose/Throat/Neck No sore throat 01/2014 Ears/Nose/Throat/Neck No postnasal drip 05/11/2013 Ears/Nose/Throat/Neck No sinus congestion 05/11/2013 Cardiovascular No chest pain/pressure 01/2014 Cardiovascular No dyspnea 05/11/2013 Cardiovascular No edema 05/11/2013 Cardiovascular No exercise intolerance Cardiovascular No fatigue 05/11/2013 Cardiovascular No near-syncope/dizziness 05/11/2013 Respiratory No chest tightness 2013 Respiratory No cigarette smoking 2013 Respiratory No cough 05/11/2013 Respiratory No dyspnea 05/11/2013 Respiratory No pedal edema 05/11/2013 Respiratory No snoring 05/11/2013 Respiratory No wheezing 05/11/2013 Gastrointestinal No hemorrhoids 2013 Gastrointestinal No abdominal pain 2013 Gastrointestinal No constipation 2013 Gastrointestinal No diarrhea 05/11/2013 Gastrointestinal No gastroesophageal reflux 05/11/2013 Gastrointestinal No melena 05/11/2013 Gastrointestinal No nausea 05/11/2013 Gastrointestinal No vomiting 05/11/2013 Genitourinary/Nephrology No dysuria 05/11 Genitourinary/Nephrology No nocturia 01/2014 Genitourinary/Nephrology No urinary incontinence 05/11/2013 Musculoskeletal No stiffness 05/11/2013 Musculoskeletal No swelling 05/11/2013 Musculoskeletal No muscle weakness 2013 Musculoskeletal No myalgias 05/11/2013 Dermatologic No rash 05/11/2013 Dermatologic No scar 05/11/2013 Neurologic No dizziness 05/11/2013 Neurologic No headache 05/11/2013 Neurologic No neck pain 05/11/2013 Neurologic No syncope 05/11/2013 Psychiatric No anxiety 05/11/2013 Psychiatric No depression 05/11/2013 Constitutional No recent illness 2013 Constitutional No chills 04/27/2013 Constitutional No fatigue 04/27/2013 Constitutional No fever 04/27/2013 Constitutional No insomnia 04/27/2013 Constitutional No malaise 04/27/2013 Ears/Nose/Throat/Neck No dental pain Ears/Nose/Throat/Neck No dizziness 2013 Ears/Nose/Throat/Neck No dysphagia 2013 Ears/Nose/Throat/Neck No headache 2013 Ears/Nose/Throat/Neck No hearing loss Ears/Nose/Throat/Neck No nasal allergies 04/27/2013 Ears/Nose/Throat/Neck No sore throat Ears/Nose/Throat/Neck No postnasal drip 04/27/2013 Ears/Nose/Throat/Neck No sinus congestion 04/27/2013 Cardiovascular No chest pain/pressure Cardiovascular No dyspnea 04/27/2013 Cardiovascular No edema 04/27/2013 Cardiovascular No exercise intolerance Cardiovascular No fatigue 04/27/2013 Cardiovascular No near-syncope/dizziness 04/27/2013 Respiratory No chest tightness 2013 Respiratory No cigarette smoking 2013 Respiratory No cough 04/27/2013 Respiratory No dyspnea 04/27/2013 Respiratory No pedal edema 04/27/2013 Respiratory No snoring 04/27/2013 Respiratory No wheezing 04/27/2013 Gastrointestinal No hemorrhoids 2013 Gastrointestinal No abdominal pain 2013 Gastrointestinal No constipation 2013 Gastrointestinal No diarrhea 04/27/2013 Gastrointestinal No gastroesophageal reflux 04/27/2013 Gastrointestinal No melena 04/27/2013 Gastrointestinal No nausea 04/27/2013 Gastrointestinal No vomiting 04/27/2013 Genitourinary/Nephrology No dysuria 04/27 Genitourinary/Nephrology No nocturia Genitourinary/Nephrology No urinary incontinence 04/27/2013 Musculoskeletal No stiffness 04/27/2013 Musculoskeletal No swelling 04/27/2013 Musculoskeletal No muscle weakness 2013 Musculoskeletal No myalgias 04/27/2013 Dermatologic No rash 04/27/2013 Dermatologic No scar 04/27/2013 Psychiatric No anxiety 04/27/2013 Psychiatric No depression 04/27/2013 Neurologic No dizziness 04/27/2013 Neurologic No headache 04/27/2013 Neurologic No neck pain 04/27/2013 Neurologic No syncope 04/27/2013 Physical Exam Exam Name System Name Item Name Status Result Effective Dates Notes Full Exam - General 1994 Constitutional general appearance Development: well developed 01/19/2018 None Full Exam - General 1994 Constitutional general appearance Development: appears stated age 1101/19/2018 None Full Exam - General 1994 Constitutional general appearance Hygiene/Attention to Grooming: good hygiene 01/19/2018 None Full Exam - General 1994 Eyes conjunctiva /eyelids Overall: conjunctiva clear 01/19/2018 None Full Exam - General 1994 Eyes conjunctiva /eyelids Overall: cornea clear 01/19/2018 None Full Exam - General 1994 Eyes pupils and irises Overall: pupils equal, round, reactive to light and accomodation 01/19/2018 None Full Exam - General 1994 Ears/Nose/Throat lips/teeth/gingiva Overall: benign lips 01/19/2018 None Full Exam - General 1994 Ears/Nose/Throat lips/teeth/gingiva Overall: normal dentition 01/19/2018 None Full Exam - General 1994 Ears/Nose/Throat lips/teeth/gingiva Overall: benign gingiva 01/19/2018 None Full Exam - General 1994 Ears/Nose/Throat lips/teeth/gingiva Overall: no masses 01/19/2018 None Full Exam - General 1994 Respiratory auscultation Overall: breath sounds clear bilaterally 01/19/2018 None Full Exam - General 1994 Respiratory respiratory effort/rhythm Overall: no retractions 01/19/2018 None Full Exam - General 1994 Respiratory respiratory effort/rhythm Overall: normal rate 01/19/2018 None Full Exam - General 1994 Cardiovascular extremities Overall: no clubbing 01/19/2018 None Full Exam - General 1994 Cardiovascular auscultation of heart Overall: regular rate 01/19/2018 None Full Exam - General 1994 Cardiovascular auscultation of heart Overall: normal heart sounds 01/19/2018 None Full Exam - General 1994 Musculoskeletal spine, ribs and pelvis Overall: spine benign 01/19/2018 None Full Exam - General 1994 Musculoskeletal spine, ribs and pelvis Overall: sacroiliac joint benign 01/19/2018 None Full Exam - General 1994 Musculoskeletal spine, ribs and pelvis Overall: good posture 01/19/2018 None Full Exam - General 1994 Musculoskeletal head and neck Overall: head atraumatic 01/19/2018 None Full Exam - General 1994 Musculoskeletal head and neck Overall: cervical spine benign 01/19/2018 None Full Exam - General 1994 Psychiatric orientation/consciousness Overall: oriented to person, place and time 01/19/2018 None Full Exam - General 1994 Psychiatric mood and affect Overall: normal mood and affect 01/19/2018 None Full Exam - General 1994 Constitutional general appearance Development: well developed 08/12/2017 None Full Exam - General 1994 Constitutional general appearance Development: appears stated age 0608/12/2017 None Full Exam - General 1994 Constitutional general appearance Hygiene/Attention to Grooming: good hygiene 08/12/2017 None Full Exam - General 1994 Eyes conjunctiva /eyelids Overall: conjunctiva clear 08/12/2017 None Full Exam - General 1994 Eyes conjunctiva /eyelids Overall: cornea clear 08/12/2017 None Full Exam - General 1994 Eyes pupils and irises Overall: pupils equal, round, reactive to light and accomodation 08/12/2017 None Full Exam - General 1994 Ears/Nose/Throat lips/teeth/gingiva Overall: benign lips 08/12/2017 None Full Exam - General 1994 Ears/Nose/Throat lips/teeth/gingiva Overall: normal dentition 08/12/2017 None Full Exam - General 1994 Ears/Nose/Throat lips/teeth/gingiva Overall: benign gingiva 08/12/2017 None Full Exam - General 1994 Ears/Nose/Throat lips/teeth/gingiva Overall: no masses 08/12/2017 None Full Exam - General 1994 Respiratory auscultation Overall: breath sounds clear bilaterally 08/12/2017 None Full Exam - General 1994 Respiratory respiratory effort/rhythm Overall: no retractions 08/12/2017 None Full Exam - General 1994 Respiratory respiratory effort/rhythm Overall: normal rate 08/12/2017 None Full Exam - General 1994 Cardiovascular extremities Overall: no clubbing 08/12/2017 None Full Exam - General 1994 Cardiovascular auscultation of heart Overall: regular rate 08/12/2017 None Full Exam - General 1994 Cardiovascular auscultation of heart Overall: normal heart sounds 08/12/2017 None Full Exam - General 1994 Abdomen abdominal exam Overall: no tenderness 08/12/2017 None Full Exam - General 1994 Abdomen abdominal exam Overall: normal bowel sounds 08/12/2017 None Full Exam - General 1994 Musculoskeletal spine, ribs and pelvis Overall: spine benign 08/12/2017 None Full Exam - General 1994 Musculoskeletal spine, ribs and pelvis Overall: sacroiliac joint benign 08/12/2017 None Full Exam - General 1994 Musculoskeletal spine, ribs and pelvis Overall: good posture 08/12/2017 None Full Exam - General 1994 Musculoskeletal head and neck Overall: head atraumatic 08/12/2017 None Full Exam - General 1994 Musculoskeletal head and neck Overall: cervical spine benign 08/12/2017 None Full Exam - General 1994 Psychiatric orientation/consciousness Overall: oriented to person, place and time 08/12/2017 None Full Exam - General 1994 Psychiatric mood and affect Overall: normal mood and affect 08/12/2017 None Full Exam - General 1994 Constitutional general appearance Overall: well developed 03/05/2017 None Full Exam - General 1994 Constitutional general appearance Overall: in no acute distress 03/05/2017 None Full Exam - General 1994 Constitutional general appearance Overall: well nourished 03/05/2017 None Full Exam - General 1994 Eyes conjunctiva /eyelids Overall: conjunctiva clear 03/05/2017 None Full Exam - General 1994 Eyes conjunctiva /eyelids Overall: cornea clear 03/05/2017 None Full Exam - General 1994 Eyes conjunctiva /eyelids Overall: eyelids normal 03/05/2017 None Full Exam - General 1994 Eyes pupils and irises Overall: pupils equal, round, reactive to light and accomodation 03/05/2017 None Full Exam - General 1994 Ears/Nose/Throat otoscopic exam External auditory canal: partial cerumen occlusion 03/05/2017 None Full Exam - General 1994 Ears/Nose/Throat otoscopic exam Tympanic membrane: air- fluid level 03/05/2017 None Full Exam - General 1994 Ears/Nose/Throat lips/teeth/gingiva Overall: benign lips 03/05/2017 None Full Exam - General 1994 Ears/Nose/Throat oral cavity/pharynx/larynx Posterior Pharynx: clear post nasal drainage 03/05/2017 None Full Exam - General 1994 Ears/Nose/Throat oral cavity/pharynx/larynx Overall: oral mucosa clear 03/05/2017 None Full Exam - General 1994 Ears/Nose/Throat oral cavity/pharynx/larynx Oropharynx: erythema 03/05/2017 None Full Exam - General 1994 Respiratory auscultation Overall: breath sounds clear bilaterally 03/05/2017 None Full Exam - General 1994 Respiratory respiratory effort/rhythm Overall: normal rate 03/05/2017 None Full Exam - General 1994 Respiratory respiratory effort/rhythm Overall: no retractions 03/05/2017 None Full Exam - General 1994 Respiratory auscultation Diffuse: diminished 03/05/2017 None Full Exam - General 1994 Cardiovascular auscultation of heart Overall: normal heart sounds 03/05/2017 None Full Exam - General 1994 Cardiovascular auscultation of heart Overall: regular rate 03/05/2017 None Full Exam - General 1994 Lymphatic neck nodes Overall: posterior cervical chain benign 03/05/2017 None Full Exam - General 1994 Lymphatic neck nodes Overall: anterior cervical chain benign 03/05/2017 None Full Exam - General 1994 Musculoskeletal head and neck Overall: head atraumatic 03/05/2017 None Full Exam - General 1994 Musculoskeletal gait and station Overall: normal station 03/05/2017 None Full Exam - General 1994 Musculoskeletal gait and station Overall: normal gait 03/05/2017 None Full Exam - General 1994 Neurologic cranial nerves Overall: crainial nerves 2 - 12 grossly intact 03/05/2017 None Full Exam - General 1994 Psychiatric orientation/consciousness Overall: oriented to person, place and time 03/05/2017 None Full Exam - General 1994 Psychiatric mood and affect Overall: normal mood and affect 03/05/2017 None Full Exam - General 1994 Psychiatric appearance Overall: well-groomed, good eye contact 03/05/2017 None Full Exam - General 1994 Constitutional general appearance Development: well developed 02/11/2017 None Full Exam - General 1994 Constitutional general appearance Development: appears stated age 1202/11/2017 None Full Exam - General 1994 Constitutional general appearance Hygiene/Attention to Grooming: good hygiene 02/11/2017 None Full Exam - General 1994 Eyes conjunctiva /eyelids Overall: conjunctiva clear 02/11/2017 None Full Exam - General 1994 Eyes conjunctiva /eyelids Overall: cornea clear 02/11/2017 None Full Exam - General 1994 Eyes pupils and irises Overall: pupils equal, round, reactive to light and accomodation 02/11/2017 None Full Exam - General 1994 Ears/Nose/Throat lips/teeth/gingiva Overall: benign lips 02/11/2017 None Full Exam - General 1994 Ears/Nose/Throat lips/teeth/gingiva Overall: normal dentition 02/11/2017 None Full Exam - General 1994 Ears/Nose/Throat lips/teeth/gingiva Overall: benign gingiva 02/11/2017 None Full Exam - General 1994 Ears/Nose/Throat lips/teeth/gingiva Overall: no masses 02/11/2017 None Full Exam - General 1994 Respiratory auscultation Overall: breath sounds clear bilaterally 02/11/2017 None Full Exam - General 1994 Respiratory respiratory effort/rhythm Overall: no retractions 02/11/2017 None Full Exam - General 1994 Respiratory respiratory effort/rhythm Overall: normal rate 02/11/2017 None Full Exam - General 1994 Cardiovascular extremities Overall: no clubbing 02/11/2017 None Full Exam - General 1994 Cardiovascular auscultation of heart Overall: regular rate 02/11/2017 None Full Exam - General 1994 Cardiovascular auscultation of heart Overall: normal heart sounds 02/11/2017 None Full Exam - General 1994 Abdomen abdominal exam Overall: no tenderness 02/11/2017 None Full Exam - General 1994 Abdomen abdominal exam Overall: normal bowel sounds 02/11/2017 None Full Exam - General 1994 Musculoskeletal spine, ribs and pelvis Overall: spine benign 02/11/2017 None Full Exam - General 1994 Musculoskeletal spine, ribs and pelvis Overall: sacroiliac joint benign 02/11/2017 None Full Exam - General 1994 Musculoskeletal spine, ribs and pelvis Overall: good posture 02/11/2017 None Full Exam - General 1994 Musculoskeletal head and neck Overall: head atraumatic 02/11/2017 None Full Exam - General 1994 Musculoskeletal head and neck Overall: cervical spine benign 02/11/2017 None Full Exam - General 1994 Psychiatric orientation/consciousness Overall: oriented to person, place and time 02/11/2017 None Full Exam - General 1994 Psychiatric mood and affect Overall: normal mood and affect 02/11/2017 None Full Exam - General 1994 Constitutional general appearance Development: well developed 08/14/2016 None Full Exam - General 1994 Constitutional general appearance Development: appears stated age 0608/14/2016 None Full Exam - General 1994 Constitutional general appearance Hygiene/Attention to Grooming: good hygiene 08/14/2016 None Full Exam - General 1994 Eyes conjunctiva /eyelids Overall: conjunctiva clear 08/14/2016 None Full Exam - General 1994 Eyes conjunctiva /eyelids Overall: cornea clear 08/14/2016 None Full Exam - General 1994 Eyes pupils and irises Overall: pupils equal, round, reactive to light and accomodation 08/14/2016 None Full Exam - General 1994 Ears/Nose/Throat lips/teeth/gingiva Overall: benign lips 08/14/2016 None Full Exam - General 1994 Ears/Nose/Throat lips/teeth/gingiva Overall: normal dentition 08/14/2016 None Full Exam - General 1994 Ears/Nose/Throat lips/teeth/gingiva Overall: benign gingiva 08/14/2016 None Full Exam - General 1994 Ears/Nose/Throat lips/teeth/gingiva Overall: no masses 08/14/2016 None Full Exam - General 1994 Respiratory auscultation Overall: breath sounds clear bilaterally 08/14/2016 None Full Exam - General 1994 Respiratory respiratory effort/rhythm Overall: no retractions 08/14/2016 None Full Exam - General 1994 Respiratory respiratory effort/rhythm Overall: normal rate 08/14/2016 None Full Exam - General 1994 Cardiovascular extremities Overall: no clubbing 08/14/2016 None Full Exam - General 1994 Cardiovascular auscultation of heart Overall: regular rate 08/14/2016 None Full Exam - General 1994 Cardiovascular auscultation of heart Overall: normal heart sounds 08/14/2016 None Full Exam - General 1994 Abdomen abdominal exam Overall: no tenderness 08/14/2016 None Full Exam - General 1994 Abdomen abdominal exam Overall: normal bowel sounds 08/14/2016 None Full Exam - General 1994 Musculoskeletal upper extremity ROM - shoulder: crepitus 08/14/2016 None Full Exam - General 1994 Musculoskeletal lower extremity ROM - knee: crepitus 08/14/2016 None Full Exam - General 1994 Musculoskeletal spine, ribs and pelvis Overall: spine benign 08/14/2016 None Full Exam - General 1994 Musculoskeletal spine, ribs and pelvis Overall: sacroiliac joint benign 08/14/2016 None Full Exam - General 1994 Musculoskeletal spine, ribs and pelvis Overall: good posture 08/14/2016 None Full Exam - General 1994 Musculoskeletal head and neck Overall: head atraumatic 08/14/2016 None Full Exam - General 1994 Musculoskeletal head and neck Overall: cervical spine benign 08/14/2016 None Full Exam - General 1994 Psychiatric orientation/consciousness Overall: oriented to person, place and time 08/14/2016 None Full Exam - General 1994 Psychiatric mood and affect Overall: normal mood and affect 08/14/2016 None Full Exam - General 1994 Lymphatic neck nodes Overall: anterior cervical chain benign 08/14/2016 None Full Exam - General 1994 Lymphatic neck nodes Overall: posterior cervical chain benign 08/14/2016 None Full Exam - General 1994 Neurologic cranial nerves Overall: crainial nerves 2 - 12 grossly intact 08/14/2016 None Full Exam - ENT Constitutional general appearance Overall: well nourished 05/06/2016 None Full Exam - ENT Constitutional general appearance Overall: well developed 05/06/2016 None Full Exam - ENT Constitutional general appearance Overall: in no acute distress 05/06/2016 None Full Exam - ENT Neurologic orientation Overall: oriented to person, place and time 05/06/2016 None Full Exam - ENT Integument inspection of skin Location: right leg 05/06/2016 abrasion right skin with mild erythema Full Exam - ENT Lymphatic palpation of lymph nodes Overall: posterior cervical chain benign 05/06/2016 None Full Exam - ENT Lymphatic palpation of lymph nodes Overall: anterior cervical chain benign 05/06/2016 None Full Exam - ENT Cardiovascular auscultation of heart Overall: regular rate 05/06/2016 None Full Exam - ENT Cardiovascular auscultation of heart Overall: normal heart sounds 05/06/2016 None Full Exam - ENT Respiratory inspection Overall: normal rate 08/2016 None Full Exam - ENT Respiratory inspection Overall: no retractions 05/06/2016 None Full Exam - ENT Respiratory auscultation Overall: breath sounds clear bilaterally 05/06/2016 None Full Exam - ENT Face and Head palpation Overall: no sinus tenderness 05/06/2016 None Full Exam - ENT Ears/Nose/Throat otoscopic exam Overall: tympanic membranes normal 05/06/2016 None Full Exam - ENT Ears/Nose/Throat otoscopic exam Overall: external auditory canals normal 05/06/2016 None Full Exam - ENT Ears/Nose/Throat oropharynx Overall: oral mucosa clear 05/06/2016 None Full Exam - General 1994 Constitutional general appearance Development: well developed 02/13/2016 None Full Exam - General 1994 Constitutional general appearance Development: appears stated age 1202/13/2016 None Full Exam - General 1994 Constitutional general appearance Hygiene/Attention to Grooming: good hygiene 02/13/2016 None Full Exam - General 1994 Eyes conjunctiva /eyelids Overall: conjunctiva clear 02/13/2016 None Full Exam - General 1994 Eyes conjunctiva /eyelids Overall: cornea clear 02/13/2016 None Full Exam - General 1994 Eyes pupils and irises Overall: pupils equal, round, reactive to light and accomodation 02/13/2016 None Full Exam - General 1994 Ears/Nose/Throat lips/teeth/gingiva Overall: benign lips 02/13/2016 None Full Exam - General 1994 Ears/Nose/Throat lips/teeth/gingiva Overall: normal dentition 02/13/2016 None Full Exam - General 1994 Ears/Nose/Throat lips/teeth/gingiva Overall: benign gingiva 02/13/2016 None Full Exam - General 1994 Ears/Nose/Throat lips/teeth/gingiva Overall: no masses 02/13/2016 None Full Exam - General 1994 Respiratory auscultation Overall: breath sounds clear bilaterally 02/13/2016 None Full Exam - General 1994 Respiratory respiratory effort/rhythm Overall: no retractions 02/13/2016 None Full Exam - General 1994 Respiratory respiratory effort/rhythm Overall: normal rate 02/13/2016 None Full Exam - General 1994 Cardiovascular extremities Overall: no clubbing 02/13/2016 None Full Exam - General 1994 Cardiovascular auscultation of heart Overall: regular rate 02/13/2016 None Full Exam - General 1994 Cardiovascular auscultation of heart Overall: normal heart sounds 02/13/2016 None Full Exam - General 1994 Abdomen abdominal exam Overall: no tenderness 02/13/2016 None Full Exam - General 1994 Abdomen abdominal exam Overall: normal bowel sounds 02/13/2016 None Full Exam - General 1994 Musculoskeletal spine, ribs and pelvis Overall: spine benign 02/13/2016 None Full Exam - General 1994 Musculoskeletal spine, ribs and pelvis Overall: sacroiliac joint benign 02/13/2016 None Full Exam - General 1994 Musculoskeletal spine, ribs and pelvis Overall: good posture 02/13/2016 None Full Exam - General 1994 Musculoskeletal head and neck Overall: head atraumatic 02/13/2016 None Full Exam - General 1994 Musculoskeletal head and neck Overall: cervical spine benign 02/13/2016 None Full Exam - General 1994 Psychiatric orientation/consciousness Overall: oriented to person, place and time 02/13/2016 None Full Exam - General 1994 Psychiatric mood and affect Overall: normal mood and affect 02/13/2016 None Full Exam - General 1994 Constitutional general appearance Development: well developed 10/19/2015 None Full Exam - General 1994 Constitutional general appearance Development: appears stated age 0810/19/2015 None Full Exam - General 1994 Constitutional general appearance Hygiene/Attention to Grooming: good hygiene 10/19/2015 None Full Exam - General 1994 Eyes conjunctiva /eyelids Overall: conjunctiva clear 10/19/2015 None Full Exam - General 1994 Eyes conjunctiva /eyelids Overall: cornea clear 10/19/2015 None Full Exam - General 1994 Eyes pupils and irises Overall: pupils equal, round, reactive to light and accomodation 10/19/2015 None Full Exam - General 1994 Ears/Nose/Throat lips/teeth/gingiva Overall: benign lips 10/19/2015 None Full Exam - General 1994 Ears/Nose/Throat lips/teeth/gingiva Overall: normal dentition 10/19/2015 None Full Exam - General 1994 Ears/Nose/Throat lips/teeth/gingiva Overall: benign gingiva 10/19/2015 None Full Exam - General 1994 Ears/Nose/Throat lips/teeth/gingiva Overall: no masses 10/19/2015 None Full Exam - General 1994 Respiratory auscultation Overall: breath sounds clear bilaterally 10/19/2015 None Full Exam - General 1994 Respiratory respiratory effort/rhythm Overall: no retractions 10/19/2015 None Full Exam - General 1994 Respiratory respiratory effort/rhythm Overall: normal rate 10/19/2015 None Full Exam - General 1994 Cardiovascular extremities Overall: no clubbing 10/19/2015 None Full Exam - General 1994 Cardiovascular auscultation of heart Overall: regular rate 10/19/2015 None Full Exam - General 1994 Cardiovascular auscultation of heart Overall: normal heart sounds 10/19/2015 None Full Exam - General 1994 Abdomen abdominal exam Overall: no tenderness 10/19/2015 None Full Exam - General 1994 Abdomen abdominal exam Overall: normal bowel sounds 10/19/2015 None Full Exam - General 1994 Musculoskeletal upper extremity ROM - shoulder: crepitus 10/19/2015 None Full Exam - General 1994 Musculoskeletal lower extremity ROM - knee: crepitus 10/19/2015 None Full Exam - General 1994 Musculoskeletal spine, ribs and pelvis Overall: spine benign 10/19/2015 None Full Exam - General 1994 Musculoskeletal spine, ribs and pelvis Overall: sacroiliac joint benign 10/19/2015 None Full Exam - General 1994 Musculoskeletal spine, ribs and pelvis Overall: good posture 10/19/2015 None Full Exam - General 1994 Musculoskeletal head and neck Overall: head atraumatic 10/19/2015 None Full Exam - General 1994 Musculoskeletal head and neck Overall: cervical spine benign 10/19/2015 None Full Exam - General 1994 Psychiatric orientation/consciousness Overall: oriented to person, place and time 10/19/2015 None Full Exam - General 1994 Psychiatric mood and affect Overall: normal mood and affect 10/19/2015 None Full Exam - General 1994 Constitutional general appearance Development: well developed 05/09/2015 None Full Exam - General 1994 Constitutional general appearance Development: appears stated age 0305/09/2015 None Full Exam - General 1994 Constitutional general appearance Hygiene/Attention to Grooming: good hygiene 05/09/2015 None Full Exam - General 1994 Eyes conjunctiva /eyelids Overall: conjunctiva clear 05/09/2015 None Full Exam - General 1994 Eyes conjunctiva /eyelids Overall: cornea clear 05/09/2015 None Full Exam - General 1994 Eyes pupils and irises Overall: pupils equal, round, reactive to light and accomodation 05/09/2015 None Full Exam - General 1994 Ears/Nose/Throat lips/teeth/gingiva Overall: benign lips 05/09/2015 None Full Exam - General 1994 Ears/Nose/Throat lips/teeth/gingiva Overall: normal dentition 05/09/2015 None Full Exam - General 1994 Ears/Nose/Throat lips/teeth/gingiva Overall: benign gingiva 05/09/2015 None Full Exam - General 1994 Ears/Nose/Throat lips/teeth/gingiva Overall: no masses 05/09/2015 None Full Exam - General 1994 Respiratory auscultation Overall: breath sounds clear bilaterally 05/09/2015 None Full Exam - General 1994 Respiratory respiratory effort/rhythm Overall: no retractions 05/09/2015 None Full Exam - General 1994 Respiratory respiratory effort/rhythm Overall: normal rate 05/09/2015 None Full Exam - General 1994 Cardiovascular extremities Overall: no clubbing 05/09/2015 None Full Exam - General 1994 Cardiovascular auscultation of heart Overall: regular rate 05/09/2015 None Full Exam - General 1994 Cardiovascular auscultation of heart Overall: normal heart sounds 05/09/2015 None Full Exam - General 1994 Abdomen abdominal exam Overall: no tenderness 05/09/2015 None Full Exam - General 1994 Abdomen abdominal exam Overall: normal bowel sounds 05/09/2015 None Full Exam - General 1994 Musculoskeletal spine, ribs and pelvis Overall: spine benign 05/09/2015 None Full Exam - General 1994 Musculoskeletal spine, ribs and pelvis Overall: sacroiliac joint benign 05/09/2015 None Full Exam - General 1994 Musculoskeletal spine, ribs and pelvis Overall: good posture 05/09/2015 None Full Exam - General 1994 Musculoskeletal head and neck Overall: head atraumatic 05/09/2015 None Full Exam - General 1994 Musculoskeletal head and neck Overall: cervical spine benign 05/09/2015 None Full Exam - General 1994 Psychiatric orientation/consciousness Overall: oriented to person, place and time 05/09/2015 None Full Exam - General 1994 Psychiatric mood and affect Overall: normal mood and affect 05/09/2015 None Full Exam - General 1994 Musculoskeletal lower extremity ROM - knee: crepitus 05/09/2015 None Full Exam - General 1994 Musculoskeletal upper extremity ROM - shoulder: crepitus 05/09/2015 None Full Exam - ENT Constitutional general appearance Overall: well nourished 01/03/2015 None Full Exam - ENT Constitutional general appearance Overall: well developed 01/03/2015 None Full Exam - ENT Constitutional general appearance Overall: in no acute distress 01/03/2015 None Full Exam - ENT Neurologic orientation Overall: oriented to person, place and time 01/03/2015 None Full Exam - ENT Integument inspection of skin Overall: no rash, lesions 01/03/2015 None Full Exam - ENT Lymphatic palpation of lymph nodes Overall: anterior cervical chain benign 01/03/2015 None Full Exam - ENT Lymphatic palpation of lymph nodes Overall: posterior cervical chain benign 01/03/2015 None Full Exam - ENT Cardiovascular auscultation of heart Overall: regular rate 01/03/2015 None Full Exam - ENT Cardiovascular auscultation of heart Overall: normal heart sounds 01/03/2015 None Full Exam - ENT Respiratory inspection Overall: no retractions 01/03/2015 None Full Exam - ENT Respiratory inspection Overall: normal rate 05/2014 None Full Exam - ENT Respiratory auscultation Overall: breath sounds clear bilaterally 01/03/2015 None Full Exam - ENT Face and Head palpation Overall: no sinus tenderness 01/03/2015 None Full Exam - ENT Ears/Nose/Throat otoscopic exam Overall: external auditory canals normal 01/03/2015 None Full Exam - ENT Ears/Nose/Throat otoscopic exam Overall: tympanic membranes normal 01/03/2015 None Full Exam - ENT Ears/Nose/Throat oropharynx Overall: oral mucosa clear 01/03/2015 None Full Exam - General 1994 Constitutional general appearance Development: well developed 11/08/2014 None Full Exam - General 1994 Constitutional general appearance Development: appears stated age 0911/08/2014 None Full Exam - General 1994 Constitutional general appearance Hygiene/Attention to Grooming: good hygiene 11/08/2014 None Full Exam - General 1994 Eyes conjunctiva /eyelids Overall: conjunctiva clear 11/08/2014 None Full Exam - General 1994 Eyes conjunctiva /eyelids Overall: cornea clear 11/08/2014 None Full Exam - General 1994 Eyes pupils and irises Overall: pupils equal, round, reactive to light and accomodation 11/08/2014 None Full Exam - General 1994 Ears/Nose/Throat lips/teeth/gingiva Overall: benign lips 11/08/2014 None Full Exam - General 1994 Ears/Nose/Throat lips/teeth/gingiva Overall: normal dentition 11/08/2014 None Full Exam - General 1994 Ears/Nose/Throat lips/teeth/gingiva Overall: benign gingiva 11/08/2014 None Full Exam - General 1994 Ears/Nose/Throat lips/teeth/gingiva Overall: no masses 11/08/2014 None Full Exam - General 1994 Respiratory auscultation Overall: breath sounds clear bilaterally 11/08/2014 None Full Exam - General 1994 Respiratory respiratory effort/rhythm Overall: no retractions 11/08/2014 None Full Exam - General 1994 Respiratory respiratory effort/rhythm Overall: normal rate 11/08/2014 None Full Exam - General 1994 Cardiovascular extremities Overall: no clubbing 11/08/2014 None Full Exam - General 1994 Cardiovascular auscultation of heart Overall: regular rate 11/08/2014 None Full Exam - General 1994 Cardiovascular auscultation of heart Overall: normal heart sounds 11/08/2014 None Full Exam - General 1994 Abdomen abdominal exam Overall: no tenderness 11/08/2014 None Full Exam - General 1994 Abdomen abdominal exam Overall: normal bowel sounds 11/08/2014 None Full Exam - General 1994 Psychiatric orientation/consciousness Overall: oriented to person, place and time 11/08/2014 None Full Exam - General 1994 Psychiatric mood and affect Overall: normal mood and affect 11/08/2014 None Full Exam - General 1994 Musculoskeletal head and neck Overall: cervical spine benign 11/08/2014 None Full Exam - General 1994 Musculoskeletal head and neck Overall: head atraumatic 11/08/2014 None Full Exam - General 1994 Musculoskeletal spine, ribs and pelvis Overall: good posture 11/08/2014 None Full Exam - General 1994 Musculoskeletal spine, ribs and pelvis Overall: sacroiliac joint benign 11/08/2014 None Full Exam - General 1994 Musculoskeletal spine, ribs and pelvis Overall: spine benign 11/08/2014 None Full Exam - General 1994 Constitutional general appearance Development: well developed 07/26/2014 None Full Exam - General 1994 Constitutional general appearance Development: appears stated age 0507/26/2014 None Full Exam - General 1994 Constitutional general appearance Hygiene/Attention to Grooming: good hygiene 07/26/2014 None Full Exam - General 1994 Eyes conjunctiva /eyelids Overall: conjunctiva clear 07/26/2014 None Full Exam - General 1994 Eyes conjunctiva /eyelids Overall: cornea clear 07/26/2014 None Full Exam - General 1994 Eyes conjunctiva /eyelids Eyelid: benign 07/26/2014 None Full Exam - General 1994 Eyes conjunctiva /eyelids Eyelid: hordeolum 07/26/2014 None Full Exam - General 1994 Eyes pupils and irises Overall: pupils equal, round, reactive to light and accomodation 07/26/2014 None Full Exam - General 1994 Ears/Nose/Throat lips/teeth/gingiva Overall: benign lips 07/26/2014 None Full Exam - General 1994 Ears/Nose/Throat lips/teeth/gingiva Overall: normal dentition 07/26/2014 None Full Exam - General 1994 Ears/Nose/Throat lips/teeth/gingiva Overall: benign gingiva 07/26/2014 None Full Exam - General 1994 Ears/Nose/Throat lips/teeth/gingiva Overall: no masses 07/26/2014 None Full Exam - General 1994 Respiratory auscultation Overall: breath sounds clear bilaterally 07/26/2014 None Full Exam - General 1994 Respiratory respiratory effort/rhythm Overall: no retractions 07/26/2014 None Full Exam - General 1994 Respiratory respiratory effort/rhythm Overall: normal rate 07/26/2014 None Full Exam - General 1994 Cardiovascular extremities Overall: no clubbing 07/26/2014 None Full Exam - General 1994 Cardiovascular auscultation of heart Overall: regular rate 07/26/2014 None Full Exam - General 1994 Cardiovascular auscultation of heart Overall: normal heart sounds 07/26/2014 None Full Exam - General 1994 Abdomen abdominal exam Overall: no tenderness 07/26/2014 None Full Exam - General 1994 Abdomen abdominal exam Overall: normal bowel sounds 07/26/2014 None Full Exam - General 1994 Psychiatric orientation/consciousness Overall: oriented to person, place and time 07/26/2014 None Full Exam - General 1994 Psychiatric mood and affect Overall: normal mood and affect 07/26/2014 None Full Exam - Dermatology Constitutional general appearance Overall: well nourished 06/17/2014 None Full Exam - Dermatology Constitutional general appearance Overall: well developed 06/17/2014 None Full Exam - Dermatology Constitutional general appearance Overall: in no acute distress 06/17/2014 None Full Exam - Dermatology Constitutional general appearance Overall: of normal body habitus 06/17/2014 None Full Exam - Dermatology Constitutional general appearance Overall: well groomed 06/17/2014 None Full Exam - Dermatology Psychiatric orientation Overall: oriented to person, place and time 06/17/2014 None Full Exam - Dermatology Integument insp & palp - left upper extremity Lesion: patch 06/17/2014 None Full Exam - Dermatology Integument insp & palp - left upper extremity Distribution: localized 06/17/2014 left forearm Full Exam - Dermatology Integument insp & palp - left upper extremity Location: on the forearm 06/17/2014 None Full Exam - Dermatology Integument insp & palp - left upper extremity Color: erythematous 06/17/2014 excoriated Full Exam - General 1994 Constitutional general appearance Overall: well developed 04/14/2014 None Full Exam - General 1994 Constitutional general appearance Overall: in no acute distress 04/14/2014 None Full Exam - General 1994 Constitutional general appearance Overall: well nourished 04/14/2014 None Full Exam - General 1994 Psychiatric orientation/consciousness Overall: oriented to person, place and time 04/14/2014 None Full Exam - General 1994 Respiratory auscultation Overall: breath sounds clear bilaterally 04/14/2014 None Full Exam - General 1994 Respiratory respiratory effort/rhythm Overall: normal rate 04/14/2014 None Full Exam - General 1994 Respiratory respiratory effort/rhythm Overall: no retractions 04/14/2014 None Full Exam - General 1994 Cardiovascular auscultation of heart Overall: regular rate 04/14/2014 None Full Exam - General 1994 Cardiovascular auscultation of heart Overall: normal heart sounds 04/14/2014 None Full Exam - General 1994 Cardiovascular auscultation of heart Overall: no murmurs 04/14/2014 None Full Exam - General 1994 Constitutional general appearance Development: well developed 04/05/2014 None Full Exam - General 1994 Constitutional general appearance Development: appears stated age 0204/05/2014 None Full Exam - General 1994 Constitutional general appearance Hygiene/Attention to Grooming: good hygiene 04/05/2014 None Full Exam - General 1994 Eyes conjunctiva /eyelids Overall: conjunctiva clear 04/05/2014 None Full Exam - General 1994 Eyes conjunctiva /eyelids Overall: cornea clear 04/05/2014 None Full Exam - General 1994 Eyes pupils and irises Overall: pupils equal, round, reactive to light and accomodation 04/05/2014 None Full Exam - General 1994 Ears/Nose/Throat lips/teeth/gingiva Overall: benign lips 04/05/2014 None Full Exam - General 1994 Ears/Nose/Throat lips/teeth/gingiva Overall: normal dentition 04/05/2014 None Full Exam - General 1994 Ears/Nose/Throat lips/teeth/gingiva Overall: benign gingiva 04/05/2014 None Full Exam - General 1994 Ears/Nose/Throat lips/teeth/gingiva Overall: no masses 04/05/2014 None Full Exam - General 1994 Respiratory auscultation Overall: breath sounds clear bilaterally 04/05/2014 None Full Exam - General 1994 Respiratory respiratory effort/rhythm Overall: no retractions 04/05/2014 None Full Exam - General 1994 Respiratory respiratory effort/rhythm Overall: normal rate 04/05/2014 None Full Exam - General 1994 Cardiovascular extremities Overall: no clubbing 04/05/2014 None Full Exam - General 1994 Cardiovascular auscultation of heart Overall: regular rate 04/05/2014 None Full Exam - General 1994 Cardiovascular auscultation of heart Overall: normal heart sounds 04/05/2014 None Full Exam - General 1994 Abdomen abdominal exam Overall: no tenderness 04/05/2014 None Full Exam - General 1994 Abdomen abdominal exam Overall: normal bowel sounds 04/05/2014 None Full Exam - General 1995 Lymphatic neck nodes Overall: anterior cervical chain benign 04/05/2014 None Full Exam - General 1994 Lymphatic neck nodes Overall: posterior cervical chain benign 04/05/2014 None Full Exam - General 1994 Integument inspection of skin Overall: few scattered moles, no gross abnormalities 04/05/2014 None Full Exam - General 1994 Neurologic deep tendon reflexes Overall: deep tendon reflexes intact 04/05/2014 None Full Exam - General 1994 Neurologic cranial nerves Overall: crainial nerves 2 - 12 grossly intact 04/05/2014 None Full Exam - General 1994 Psychiatric orientation/consciousness Overall: oriented to person, place and time 04/05/2014 None Full Exam - General 1994 Psychiatric mood and affect Overall: normal mood and affect 04/05/2014 None Full Exam - General 1994 Musculoskeletal spine, ribs and pelvis Sacroiliac joints: tender right sacroiliac joint 04/05/2014 None Full Exam - General 1994 Constitutional general appearance Development: well developed 12/28/2013 None Full Exam - General 1994 Constitutional general appearance Development: appears stated age 1012/28/2013 None Full Exam - General 1994 Constitutional general appearance Hygiene/Attention to Grooming: good hygiene 12/28/2013 None Full Exam - General 1994 Eyes conjunctiva /eyelids Overall: conjunctiva clear 12/28/2013 None Full Exam - General 1994 Eyes conjunctiva /eyelids Overall: cornea clear 12/28/2013 None Full Exam - General 1994 Eyes conjunctiva /eyelids Eyelid: benign 12/28/2013 None Full Exam - General 1994 Eyes conjunctiva /eyelids Eyelid: hordeolum 12/28/2013 None Full Exam - General 1994 Eyes pupils and irises Overall: pupils equal, round, reactive to light and accomodation 12/28/2013 None Full Exam - General 1994 Ears/Nose/Throat lips/teeth/gingiva Overall: benign lips 12/28/2013 None Full Exam - General 1994 Ears/Nose/Throat lips/teeth/gingiva Overall: normal dentition 12/28/2013 None Full Exam - General 1994 Ears/Nose/Throat lips/teeth/gingiva Overall: benign gingiva 12/28/2013 None Full Exam - General 1995 Ears/Nose/Throat lips/teeth/gingiva Overall: no masses 12/28/2013 None Full Exam - General 1994 Respiratory auscultation Overall: breath sounds clear bilaterally 12/28/2013 None Full Exam - General 1994 Respiratory respiratory effort/rhythm Overall: no retractions 12/28/2013 None Full Exam - General 1994 Respiratory respiratory effort/rhythm Overall: normal rate 12/28/2013 None Full Exam - General 1994 Cardiovascular extremities Overall: no clubbing 12/28/2013 None Full Exam - General 1994 Cardiovascular auscultation of heart Overall: regular rate 12/28/2013 None Full Exam - General 1994 Cardiovascular auscultation of heart Overall: normal heart sounds 12/28/2013 None Full Exam - General 1994 Abdomen abdominal exam Overall: no tenderness 12/28/2013 None Full Exam - General 1994 Abdomen abdominal exam Overall: normal bowel sounds 12/28/2013 None Full Exam - General 1994 Lymphatic neck nodes Overall: anterior cervical chain benign 12/28/2013 None Full Exam - General 1994 Lymphatic neck nodes Overall: posterior cervical chain benign 12/28/2013 None Full Exam - General 1994 Integument inspection of skin Overall: few scattered moles, no gross abnormalities 12/28/2013 None Full Exam - General 1994 Neurologic deep tendon reflexes Overall: deep tendon reflexes intact 12/28/2013 None Full Exam - General 1994 Neurologic cranial nerves Overall: crainial nerves 2 - 12 grossly intact 12/28/2013 None Full Exam - General 1994 Psychiatric orientation/consciousness Overall: oriented to person, place and time 12/28/2013 None Full Exam - General 1994 Psychiatric mood and affect Overall: normal mood and affect 12/28/2013 None Full Exam - General 1994 Constitutional general appearance Development: well developed 10/04/2013 None Full Exam - General 1994 Constitutional general appearance Development: appears stated age 0810/04/2013 None Full Exam - General 1994 Constitutional general appearance Hygiene/Attention to Grooming: good hygiene 10/04/2013 None Full Exam - General 1994 Eyes conjunctiva /eyelids Overall: conjunctiva clear 10/04/2013 None Full Exam - General 1994 Eyes conjunctiva /eyelids Overall: cornea clear 10/04/2013 None Full Exam - General 1994 Eyes pupils and irises Overall: pupils equal, round, reactive to light and accomodation 10/04/2013 None Full Exam - General 1994 Ears/Nose/Throat lips/teeth/gingiva Overall: benign lips 10/04/2013 None Full Exam - General 1994 Ears/Nose/Throat lips/teeth/gingiva Overall: normal dentition 10/04/2013 None Full Exam - General 1995 Ears/Nose/Throat lips/teeth/gingiva Overall: benign gingiva 10/04/2013 None Full Exam - General 1995 Ears/Nose/Throat lips/teeth/gingiva Overall: no masses 10/04/2013 None Full Exam - General 1994 Respiratory auscultation Overall: breath sounds clear bilaterally 10/04/2013 None Full Exam - General 1994 Respiratory respiratory effort/rhythm Overall: no retractions 10/04/2013 None Full Exam - General 1994 Respiratory respiratory effort/rhythm Overall: normal rate 10/04/2013 None Full Exam - General 1994 Cardiovascular extremities Overall: no clubbing 10/04/2013 None Full Exam - General 1994 Cardiovascular auscultation of heart Overall: regular rate 10/04/2013 None Full Exam - General 1994 Cardiovascular auscultation of heart Overall: normal heart sounds 10/04/2013 None Full Exam - General 1994 Lymphatic neck nodes Overall: anterior cervical chain benign 10/04/2013 None Full Exam - General 1994 Lymphatic neck nodes Overall: posterior cervical chain benign 10/04/2013 None Full Exam - General 1994 Psychiatric orientation/consciousness Overall: oriented to person, place and time 10/04/2013 None Full Exam - General 1994 Psychiatric mood and affect Overall: normal mood and affect 10/04/2013 None Full Exam - General 1994 Constitutional general appearance Development: well developed 08/24/2013 None Full Exam - General 1994 Constitutional general appearance Development: appears stated age 0608/24/2013 None Full Exam - General 1994 Constitutional general appearance Hygiene/Attention to Grooming: good hygiene 08/24/2013 None Full Exam - General 1994 Eyes conjunctiva /eyelids Overall: conjunctiva clear 08/24/2013 None Full Exam - General 1994 Eyes conjunctiva /eyelids Overall: cornea clear 08/24/2013 None Full Exam - General 1994 Eyes conjunctiva /eyelids Eyelid: benign 08/24/2013 None Full Exam - General 1994 Eyes conjunctiva /eyelids Eyelid: hordeolum 08/24/2013 None Full Exam - General 1994 Eyes pupils and irises Overall: pupils equal, round, reactive to light and accomodation 08/24/2013 None Full Exam - General 1994 Ears/Nose/Throat lips/teeth/gingiva Overall: benign lips 08/24/2013 None Full Exam - General 1994 Ears/Nose/Throat lips/teeth/gingiva Overall: normal dentition 08/24/2013 None Full Exam - General 1994 Ears/Nose/Throat lips/teeth/gingiva Overall: benign gingiva 08/24/2013 None Full Exam - General 1994 Ears/Nose/Throat lips/teeth/gingiva Overall: no masses 08/24/2013 None Full Exam - General 1994 Respiratory auscultation Overall: breath sounds clear bilaterally 08/24/2013 None Full Exam - General 1994 Respiratory respiratory effort/rhythm Overall: no retractions 08/24/2013 None Full Exam - General 1994 Respiratory respiratory effort/rhythm Overall: normal rate 08/24/2013 None Full Exam - General 1994 Cardiovascular extremities Overall: no clubbing 08/24/2013 None Full Exam - General 1994 Cardiovascular auscultation of heart Overall: regular rate 08/24/2013 None Full Exam - General 1994 Cardiovascular auscultation of heart Overall: normal heart sounds 08/24/2013 None Full Exam - General 1994 Integument inspection of skin Overall: few scattered moles, no gross abnormalities 08/24/2013 None Full Exam - General 1994 Neurologic deep tendon reflexes Overall: deep tendon reflexes intact 08/24/2013 None Full Exam - General 1994 Neurologic cranial nerves Overall: crainial nerves 2 - 12 grossly intact 08/24/2013 None Full Exam - General 1994 Psychiatric orientation/consciousness Overall: oriented to person, place and time 08/24/2013 None Full Exam - General 1994 Psychiatric mood and affect Overall: normal mood and affect 08/24/2013 None Full Exam - General 1994 Abdomen abdominal exam Overall: no tenderness 08/24/2013 None Full Exam - General 1994 Abdomen abdominal exam Overall: normal bowel sounds 08/24/2013 None Full Exam - General 1994 Lymphatic neck nodes Overall: anterior cervical chain benign 08/24/2013 None Full Exam - General 1994 Lymphatic neck nodes Overall: posterior cervical chain benign 08/24/2013 None Full Exam - General 1994 Constitutional general appearance Development: well developed 05/11/2013 None Full Exam - General 1994 Constitutional general appearance Development: appears stated age 0305/11/2013 None Full Exam - General 1994 Constitutional general appearance Hygiene/Attention to Grooming: good hygiene 05/11/2013 None Full Exam - General 1994 Eyes conjunctiva /eyelids Overall: conjunctiva clear 05/11/2013 None Full Exam - General 1994 Eyes conjunctiva /eyelids Overall: cornea clear 05/11/2013 None Full Exam - General 1995 Eyes conjunctiva /eyelids Eyelid: benign 05/11/2013 None Full Exam - General 1994 Eyes conjunctiva /eyelids Eyelid: hordeolum 05/11/2013 None Full Exam - General 1994 Eyes pupils and irises Overall: pupils equal, round, reactive to light and accomodation 05/11/2013 None Full Exam - General 1994 Respiratory auscultation Overall: breath sounds clear bilaterally 05/11/2013 None Full Exam - General 1994 Respiratory respiratory effort/rhythm Overall: no retractions 05/11/2013 None Full Exam - General 1994 Respiratory respiratory effort/rhythm Overall: normal rate 05/11/2013 None Full Exam - General 1994 Cardiovascular extremities Overall: no clubbing 05/11/2013 None Full Exam - General 1994 Cardiovascular auscultation of heart Overall: regular rate 05/11/2013 None Full Exam - General 1994 Cardiovascular auscultation of heart Overall: normal heart sounds 05/11/2013 None Full Exam - General 1994 Integument inspection of skin Overall: few scattered moles, no gross abnormalities 05/11/2013 None Full Exam - General 1994 Neurologic deep tendon reflexes Overall: deep tendon reflexes intact 05/11/2013 None Full Exam - General 1994 Neurologic cranial nerves Overall: crainial nerves 2 - 12 grossly intact 05/11/2013 None Full Exam - General 1994 Psychiatric orientation/consciousness Overall: oriented to person, place and time 05/11/2013 None Full Exam - General 1994 Psychiatric mood and affect Overall: normal mood and affect 05/11/2013 None Full Exam - General 1994 Ears/Nose/Throat lips/teeth/gingiva Overall: benign gingiva 05/11/2013 None Full Exam - General 1994 Ears/Nose/Throat lips/teeth/gingiva Overall: no masses 05/11/2013 None Full Exam - General 1994 Ears/Nose/Throat lips/teeth/gingiva Overall: normal dentition 05/11/2013 None Full Exam - General 1994 Ears/Nose/Throat lips/teeth/gingiva Overall: benign lips 05/11/2013 None Full Exam - General 1994 Constitutional general appearance Development: appears stated age 0204/27/2013 None Full Exam - General 1994 Constitutional general appearance Development: well developed 04/27/2013 None Full Exam - General 1994 Constitutional general appearance Hygiene/Attention to Grooming: good hygiene 04/27/2013 None Full Exam - General 1994 Eyes conjunctiva /eyelids Overall: conjunctiva clear 04/27/2013 None Full Exam - General 1994 Eyes conjunctiva /eyelids Overall: cornea clear 04/27/2013 None Full Exam - General 1994 Eyes pupils and irises Overall: pupils equal, round, reactive to light and accomodation 04/27/2013 None Full Exam - General 1994 Ears/Nose/Throat otoscopic exam Overall: external auditory canals clear 04/27/2013 None Full Exam - General 1994 Ears/Nose/Throat otoscopic exam Overall: tympanic membranes clear 04/27/2013 None Full Exam - General 1994 Ears/Nose/Throat lips/teeth/gingiva Overall: benign lips 04/27/2013 None Full Exam - General 1994 Ears/Nose/Throat lips/teeth/gingiva Overall: normal dentition 04/27/2013 None Full Exam - General 1994 Ears/Nose/Throat oral cavity/pharynx/larynx Overall: hypopharynx benign 04/27/2013 None Full Exam - General 1994 Ears/Nose/Throat oral cavity/pharynx/larynx Overall: no masses 04/27/2013 None Full Exam - General 1994 Ears/Nose/Throat oral cavity/pharynx/larynx Overall: oral mucosa clear 04/27/2013 None Full Exam - General 1994 Ears/Nose/Throat oral cavity/pharynx/larynx Overall: oropharyngeal mucosa clear 04/27/2013 None Full Exam - General 1994 Respiratory auscultation Overall: breath sounds clear bilaterally 04/27/2013 None Full Exam - General 1994 Respiratory respiratory effort/rhythm Overall: no retractions 04/27/2013 None Full Exam - General 1994 Respiratory respiratory effort/rhythm Overall: normal rate 04/27/2013 None Full Exam - General 1994 Cardiovascular extremities Overall: no clubbing 04/27/2013 None Full Exam - General 1994 Cardiovascular auscultation of heart Overall: normal heart sounds 04/27/2013 None Full Exam - General 1994 Cardiovascular auscultation of heart Overall: regular rate 04/27/2013 None Full Exam - General 1994 Abdomen abdominal exam Overall: no tenderness 04/27/2013 None Full Exam - General 1994 Abdomen abdominal exam Overall: normal bowel sounds 04/27/2013 None Full Exam - General 1994 Integument inspection of skin Overall: few scattered moles, no gross abnormalities 04/27/2013 None Full Exam - General 1994 Neurologic deep tendon reflexes Overall: deep tendon reflexes intact 04/27/2013 None Full Exam - General 1994 Neurologic cranial nerves Overall: crainial nerves 2 - 12 grossly intact 04/27/2013 None Full Exam - General 1994 Psychiatric orientation/consciousness Overall: oriented to person, place and time 04/27/2013 None Full Exam - General 1994 Psychiatric mood and affect Overall: normal mood and affect 04/27/2013 None Full Exam - General 1994 Eyes conjunctiva /eyelids Eyelid: hordeolum 04/27/2013 None Full Exam - General 1994 Eyes conjunctiva /eyelids Eyelid: benign 04/27/2013 None Full Exam - General 1994 Lymphatic neck nodes Overall: anterior cervical chain benign 04/27/2013 None Full Exam - General 1994 Lymphatic neck nodes Overall: posterior cervical chain benign 04/27/2013 None Full Exam - General 1994 Musculoskeletal head and neck Overall: cervical spine benign 04/27/2013 None Full Exam - General 1994 Musculoskeletal head and neck Overall: head atraumatic 04/27/2013 None Full Exam - General 1994 Musculoskeletal spine, ribs and pelvis Overall: good posture 04/27/2013 None Full Exam - General 1994 Musculoskeletal spine, ribs and pelvis Overall: sacroiliac joint benign 04/27/2013 None Full Exam - General 1994 Musculoskeletal spine, ribs and pelvis Overall: spine benign 04/27/2013 None Procedures Procedure Codes Date TRIAMCINOLONE ACET INJ NOS CPT-4: J3301 05/06/2016 ROCEPHIN, PER 250 MG CPT-4: J0696 05/06/2016 THER/PROPH/DIAG INJ SC/IM CPT-4: 63206 05/06/2016 TSH (ASSAY THYROID STIM HORMONE) CPT-4: 05175 04/05/2014 CBC (COMPLETE CBC W/AUTO DIFF WBC) CPT-4: 89773 04/05/2014 CHEM 14 (COMPREHEN METABOLIC PANEL) CPT-4: 42852 04/05/2014 HgbA1c CPT-4: 32715 04/05/2014 ROUTINE VENIPUNCTURE CPT-4: 92059 04/05/2014 KETOROLAC TROMETHAMINE INJ CPT-4: J1885 04/05/2014 URINALYSIS NONAUTO W/O SCOPE CPT-4: 78735 04/05/2014 THER/PROPH/DIAG INJ SC/IM CPT-4: 20979 10/04/2013 TRIAMCINOLONE ACET INJ NOS CPT-4: J3301 10/04/2013 Vital Signs Date Vital 01/19/2018 Blood Pressure 1: 146/80 Code : 8480-6 BMI: 30.2 Code : 95925-2 Heart Rate 1 : 74 bpm Height: 6'2" SpO2: 98% Weight: 235 lbs 08/12/2017 Blood Pressure 1: 140/80 Code : 8480-6 BMI: 28.9 Code : 46795-4 Heart Rate 1 : 51 bpm Height: 6'2" SpO2: 97% Weight: 225 lbs 03/05/2017 Blood Pressure 1: 134/78 Code : 8480-6 BMI: 30.8 Code : 00906-2 Heart Rate 1 : 80 bpm Height: 6'2" SpO2: 97% Temperature: 37.6 (C) / 99.7 (F) Weight: 240 lbs 02/11/2017 Blood Pressure 1: 134/82 Code : 8480-6 BMI: 30.7 Code : 94729-3 Heart Rate 1 : 65 bpm Height: 6'2" SpO2: 96% Weight: 239 lbs 08/14/2016 Blood Pressure 1: 140/88 Code : 8480-6 Blood Pressure 1: 152/86 Code: 8480-6 BMI: 30.6 Code: 68304-3 Heart Rate 1: 53 bpm Height: 6'2" SpO2: 98% Weight: 238 lbs 05/06/2016 Blood Pressure 1: 138/76 Code : 8480-6 BMI: 31.3 Code : 49095-7 Heart Rate 1 : 96 bpm Height: 6'2" SpO2: 96% Temperature: 37.4 (C) / 99.4 (F) Weight: 244 lbs 02/13/2016 Blood Pressure 1: 120/78 Code : 8480-6 BMI: 30.8 Code : 85201-6 Heart Rate 1 : 55 bpm Height: 6'2" SpO2: 98% Weight: 240 lbs 10/19/2015 Blood Pressure 1: 140/88 Code : 8480-6 BMI: 30.0 Code : 83888-9 Heart Rate 1 : 71 bpm Height: 6'2" SpO2: 96% Weight: 234 lbs 05/09/2015 Blood Pressure 1: 138/76 Code : 8480-6 BMI: 30.7 Code : 08357-9 Heart Rate 1 : 54 bpm Height: 6'2" SpO2: 97% Weight: 239 lbs 01/03/2015 Blood Pressure 1: 138/88 Code : 8480-6 BMI: 29.9 Code : 63161-0 Heart Rate 1 : 71 bpm Height: 6'2" SpO2: 98% Temperature: 36.3 (C) / 97.4 (F) Weight: 233 lbs 11/08/2014 Blood Pressure 1: 126/88 Code : 8480-6 Blood Pressure 1: 146/80 Code: 8480-6 BMI: 29.0 Code: 24631-5 Heart Rate 1: 53 bpm Height: 6'2" SpO2: 98% Weight: 226 lbs 07/26/2014 Blood Pressure 1: 128/82 Code : 8480-6 BMI: 29.4 Code : 49386-8 Heart Rate 1 : 72 bpm Height: 6'2" Weight: 229 lbs 06/17/2014 Blood Pressure 1: 130/84 Code : 8480-6 BMI: 30.0 Code : 29606-2 Heart Rate 1 : 60 bpm Height: 6'2" SpO2: 98% Temperature: 36.5 (C) / 97.7 (F) Weight: 234 lbs 04/14/2014 Blood Pressure 1: 132/78 Code : 8480-6 BMI: 29.3 Code : 23078-8 Heart Rate 1 : 78 bpm Height: 6'2" Weight: 228 lbs 04/05/2014 Blood Pressure 1: 136/76 Code : 8480-6 BMI: 30.3 Code : 97966-1 Heart Rate 1 : 88 bpm Height: 6'2" Weight: 236 lbs 12/28/2013 Blood Pressure 1: 138/76 Code : 8480-6 BMI: 29.4 Code : 23168-0 Heart Rate 1 : 68 bpm Height: 6'2" Weight: 229 lbs 10/04/2013 Blood Pressure 1: 150/96 Code : 8480-6 BMI: 29.4 Code : 28685-5 Heart Rate 1 : 68 bpm Height: 6'2" Weight: 229 lbs 08/24/2013 Blood Pressure 1: 142/84 Code : 8480-6 BMI: 29.1 Code : 90626-5 Heart Rate 1 : 68 bpm Height: 6'2" SpO2: 98% Weight: 227 lbs 05/11/2013 Blood Pressure 1: 156/82 Code : 8480-6 BMI: 31.1 Code : 00450-7 Heart Rate 1 : 72 bpm Height: 6'2" Weight: 242 lbs 04/27/2013 Blood Pressure 1: 202/100 Code: 8480-6 BMI: 31.6 Code: 64280-6 Heart Rate 1: 100 bpm Height : 6'2" SpO2: 98% Weight: 246 lbs Functional Status No Functional Status data History of Present Illness Symptom Name Status Result Effective Date Notes hypertension Quality chronic 01/19/2018 None hypertension Quality intermittent 01/19/2018 None hypertension Quality primary hypertension 01/19/2018 None hypertension Onset and Resolution ongoing 01/19/2018 None hypertension Onset of Symptom during adulthood 01/19/2018 None hypertension Blood Pressure Values not checking blood pressure at home 01/19/2018 None hypertension Alleviating Factors medication 01/19/2018 None hypertension Exacerbating Factors stress 01/19/2018 None hypertension Pertinent Findings Denies dizziness 01/19/2018 None hypertension Pertinent Findings Denies dyspnea 01/19/2018 None hypertension Pertinent Findings Denies edema 01/19/2018 None hyperlipidemia Onset and Resolution gradual in onset 01/19/2018 None hyperlipidemia Onset of Symptom during adulthood 01/19/2018 None hyperlipidemia Exacerbating Factors diet 01/19/2018 None hypertension Quality chronic 08/12/2017 None hypertension Quality intermittent 08/12/2017 None hypertension Quality primary hypertension 08/12/2017 None hypertension Onset and Resolution ongoing 08/12/2017 None hypertension Onset of Symptom during adulthood 08/12/2017 None hypertension Blood Pressure Values not checking blood pressure at home 08/12/2017 None hypertension Alleviating Factors medication 08/12/2017 None hypertension Exacerbating Factors stress 08/12/2017 None hypertension Pertinent Findings Denies dizziness 08/12/2017 None hypertension Pertinent Findings Denies dyspnea 08/12/2017 None hypertension Pertinent Findings Denies edema 08/12/2017 None hyperlipidemia Onset and Resolution gradual in onset 08/12/2017 None hyperlipidemia Onset of Symptom during adulthood 08/12/2017 None hyperlipidemia Exacerbating Factors diet 08/12/2017 None cough Location in the lung 03/05/2017 None cough Quality acute None cough Quality intermittent 03/05/2017 None cough Onset and Resolution sudden in onset 03/05/2017 None cough Onset of Symptom 4 days ago 03/05/2017 None cough Limitation on Activities does not limit activities 03/05/2017 None cough Pertinent Findings Denies dyspnea 03/05/2017 None malaise Quality acute 03/05/2017 None malaise Onset and Resolution sudden in onset 03/05/2017 None malaise Onset of Symptom 4 days ago 03/05/2017 None malaise Limitation on Activities moderately limits activities 03/05/2017 None malaise Pertinent Findings fever 03/05/2017 None hypertension Quality chronic 02/11/2017 None hypertension Quality intermittent 02/11/2017 None hypertension Quality primary hypertension 02/11/2017 None hypertension Onset and Resolution ongoing 02/11/2017 None hypertension Onset of Symptom during adulthood 02/11/2017 None hypertension Blood Pressure Values not checking blood pressure at home 02/11/2017 None hypertension Alleviating Factors medication 02/11/2017 None hypertension Exacerbating Factors stress 02/11/2017 None hypertension Pertinent Findings Denies dizziness 02/11/2017 None hypertension Pertinent Findings Denies dyspnea 02/11/2017 None hypertension Pertinent Findings Denies edema 02/11/2017 None hyperlipidemia Onset and Resolution gradual in onset 02/11/2017 None hyperlipidemia Onset of Symptom during adulthood 02/11/2017 None hyperlipidemia Exacerbating Factors diet 02/11/2017 None knee pain Location on the left 02/11/2017 None knee pain Location on the right 02/11/2017 None knee pain Quality catching 02/11/2017 None knee pain Quality giving way 02/11/2017 None knee pain Quality locking 02/11/2017 None knee pain Quality popping 02/11/2017 None knee pain Onset and Resolution gradual in onset 02/11/2017 None knee pain Onset of Symptom 1-2 years ago 02/11/2017 -Left knee has been worsening over the last couple of years. Right knee has been ongoing for 1 year knee pain Frequency of Episodes unchanged 02/11/2017 None knee pain Limitation on Activities allows weight bearing activity 02/11/2017 None knee pain Pertinent Findings locking 02/11/2017 None knee pain Pertinent Findings pain with movement 02/11/2017 None knee pain Pertinent Findings sensation of buckling 02/11/2017 None diaphoresis Triggers no known associated factors 02/11/2017 None diaphoresis Onset and Resolution resolved 02/11/2017 None diaphoresis Pertinent Findings Denies dizziness 02/11/2017 None diaphoresis Pertinent Findings Denies edema 02/11/2017 None diaphoresis Pertinent Findings Denies fever 02/11/2017 None hypertension Quality chronic 08/14/2016 None hypertension Quality intermittent 08/14/2016 None hypertension Onset and Resolution ongoing 08/14/2016 None hypertension Onset of Symptom during adulthood 08/14/2016 None hypertension Blood Pressure Values not checking blood pressure at home 08/14/2016 None hypertension Alleviating Factors medication 08/14/2016 None hypertension Exacerbating Factors stress 08/14/2016 None hypertension Pertinent Findings Denies dizziness 08/14/2016 None hypertension Pertinent Findings Denies dyspnea 08/14/2016 None hypertension Pertinent Findings Denies edema 08/14/2016 None hyperlipidemia Onset and Resolution gradual in onset 08/14/2016 None hyperlipidemia Onset of Symptom during adulthood 08/14/2016 None hyperlipidemia Exacerbating Factors diet 08/14/2016 None knee pain Location on the left 08/14/2016 None knee pain Location on the right 08/14/2016 None knee pain Quality catching 08/14/2016 None knee pain Quality giving way 08/14/2016 None knee pain Quality locking 08/14/2016 None knee pain Quality popping 08/14/2016 None knee pain Onset and Resolution gradual in onset 08/14/2016 None knee pain Onset of Symptom 1-2 years ago 08/14/2016 -Left knee has been worsening over the last couple of years. Right knee has been ongoing for 1 year knee pain Frequency of Episodes unchanged 08/14/2016 None knee pain Limitation on Activities allows weight bearing activity 08/14/2016 None knee pain Pertinent Findings locking 08/14/2016 None knee pain Pertinent Findings pain with movement 08/14/2016 None knee pain Pertinent Findings sensation of buckling 08/14/2016 None hypertension Quality primary hypertension 08/14/2016 None diaphoresis Onset and Resolution ongoing 08/14/2016 None diaphoresis Triggers no known associated factors 08/14/2016 None sinus congestion Quality acute 05/06/2016 None sinus congestion Onset and Resolution sudden in onset 05/06/2016 None sinus congestion Onset of Symptom 2-3 days ago 05/06/2016 None sinus congestion Pertinent Findings cough 05/06/2016 None sinus congestion Pertinent Findings fever 05/06/2016 None sinus congestion Pertinent Findings Denies vomiting 05/06/2016 None cough Quality acute None cough Quality productive 05/06/2016 None cough Quality intermittent 05/06/2016 None cough Onset and Resolution sudden in onset 05/06/2016 None cough Onset of Symptom 3 days ago 05/06/2016 None cough Pertinent Findings fever 05/06/2016 None cough Pertinent Findings nasal congestion 05/06/2016 None cough Pertinent Findings Denies nausea 05/06/2016 None cough Pertinent Findings sputum production 05/06/2016 None cough Pertinent Findings Denies vomiting 05/06/2016 None hypertension Quality chronic 02/13/2016 None hypertension Onset and Resolution ongoing 02/13/2016 None hypertension Onset of Symptom during adulthood 02/13/2016 None hypertension Blood Pressure Values not checking blood pressure at home 02/13/2016 None hypertension Severity mild 02/13/2016 None hypertension Alleviating Factors medication 02/13/2016 None hypertension Exacerbating Factors stress 02/13/2016 None hypertension Pertinent Findings Denies dizziness 02/13/2016 None hypertension Pertinent Findings Denies dyspnea 02/13/2016 None hypertension Pertinent Findings Denies edema 02/13/2016 None hyperlipidemia Onset and Resolution gradual in onset 02/13/2016 None hyperlipidemia Onset and Resolution ongoing 02/13/2016 None hyperlipidemia Onset of Symptom during adulthood 02/13/2016 None hyperlipidemia Exacerbating Factors diet 02/13/2016 None knee pain Location on the left 02/13/2016 None knee pain Location on the right 02/13/2016 None knee pain Quality catching 02/13/2016 None knee pain Quality giving way 02/13/2016 None knee pain Quality locking 02/13/2016 None knee pain Quality popping 02/13/2016 None knee pain Onset and Resolution gradual in onset 02/13/2016 None knee pain Onset of Symptom 1-2 years ago 02/13/2016 -Left knee has been worsening over the last couple of years. Right knee has been ongoing for 1 year knee pain Limitation on Activities allows weight bearing activity 02/13/2016 None knee pain Pertinent Findings locking 02/13/2016 None knee pain Pertinent Findings pain with movement 02/13/2016 None knee pain Pertinent Findings sensation of buckling 02/13/2016 None arm pain Location right upper arm 02/13/2016 None arm pain Onset and Resolution ongoing 02/13/2016 None arm pain Exacerbating Factors lifting 02/13/2016 None hypertension Quality intermittent 02/13/2016 None knee pain Frequency of Episodes unchanged 02/13/2016 None arm pain Quality improving 02/13/2016 None arm pain Quality intermittent 02/13/2016 None arm pain Onset of Symptom 12+ months ago 02/13/2016 None hypertension Quality chronic 10/19/2015 None hypertension Onset and Resolution ongoing 10/19/2015 None hypertension Onset of Symptom during adulthood 10/19/2015 None hypertension Blood Pressure Values not checking blood pressure at home 10/19/2015 None hypertension Severity mild 10/19/2015 None hypertension Alleviating Factors medication 10/19/2015 None hypertension Pertinent Findings Denies dizziness 10/19/2015 None hypertension Pertinent Findings Denies dyspnea 10/19/2015 None hypertension Pertinent Findings Denies edema 10/19/2015 None hyperlipidemia Onset and Resolution ongoing 10/19/2015 None hyperlipidemia Onset of Symptom during adulthood 10/19/2015 None hyperlipidemia Exacerbating Factors diet 10/19/2015 None knee pain Location on the left 10/19/2015 None knee pain Location on the right 10/19/2015 None knee pain Quality catching 10/19/2015 None knee pain Quality giving way 10/19/2015 None knee pain Quality locking 10/19/2015 None knee pain Quality popping 10/19/2015 None knee pain Quality worsening 10/19/2015 None knee pain Onset and Resolution gradual in onset 10/19/2015 None knee pain Onset of Symptom 1-2 years ago 10/19/2015 -Left knee has been worsening over the last couple of years. Right knee has been ongoing for 1 year knee pain Limitation on Activities allows weight bearing activity 10/19/2015 None knee pain Pertinent Findings locking 10/19/2015 None knee pain Pertinent Findings pain with movement 10/19/2015 None knee pain Pertinent Findings sensation of buckling 10/19/2015 None arm pain Location right upper arm 10/19/2015 None arm pain Onset and Resolution ongoing 10/19/2015 None arm pain Onset of Symptom 9+ months ago 10/19/2015 None hyperlipidemia Onset and Resolution gradual in onset 10/19/2015 None hypertension Exacerbating Factors stress 10/19/2015 None arm pain Exacerbating Factors lifting 10/19/2015 None fatigue Onset and Resolution ongoing 10/19/2015 None hypertension Quality chronic 05/09/2015 None hypertension Onset and Resolution ongoing 05/09/2015 None hypertension Onset of Symptom during adulthood 05/09/2015 None hypertension Blood Pressure Values not checking blood pressure at home 05/09/2015 None hypertension Severity mild 05/09/2015 None hypertension Alleviating Factors medication 05/09/2015 None hypertension Pertinent Findings Denies dizziness 05/09/2015 None hypertension Pertinent Findings Denies dyspnea 05/09/2015 None hypertension Pertinent Findings Denies edema 05/09/2015 None hyperlipidemia Onset and Resolution ongoing 05/09/2015 None hyperlipidemia Onset of Symptom during adulthood 05/09/2015 None hyperlipidemia Exacerbating Factors diet 05/09/2015 None knee pain Location on the left 05/09/2015 None knee pain Location on the right 05/09/2015 None knee pain Quality locking 05/09/2015 None knee pain Quality popping 05/09/2015 None knee pain Quality worsening 05/09/2015 None knee pain Quality catching 05/09/2015 None knee pain Quality giving way 05/09/2015 None knee pain Onset and Resolution gradual in onset 05/09/2015 None knee pain Onset of Symptom 1-2 years ago 05/09/2015 -Left knee has been worsening over the last couple of years. Right knee has been ongoing for 1 year knee pain Limitation on Activities allows weight bearing activity 05/09/2015 None knee pain Mechanism of injury unknown 05/09/2015 None knee pain Pertinent Findings locking 05/09/2015 None knee pain Pertinent Findings pain with movement 05/09/2015 None knee pain Pertinent Findings sensation of buckling 05/09/2015 None arm pain Location right upper arm 05/09/2015 None arm pain Onset of Symptom 6 months ago 05/09/2015 None arm pain Onset and Resolution ongoing 05/09/2015 None arm pain Mechanism of injury unknown 05/09/2015 None sinus congestion Onset and Resolution ongoing 01/03/2015 None sinus congestion Onset of Symptom 3-4 weeks ago 01/03/2015 off and on sinus congestion Frequency of Episodes daily 01/03/2015 None sinus congestion Pertinent Findings cough 01/03/2015 None sinus congestion Pertinent Findings Denies fever 01/03/2015 None sinus congestion Severity mild 01/03/2015 None sinus congestion Triggers allergens 01/03/2015 None diabetes mellitus Onset of Symptom onset as an adult 11/08/2014 None diabetes mellitus Quality non-insulin dependent 11/08/2014 None diabetes mellitus Quality acute 11/08/2014 None diabetes mellitus Nutrition regular diet 11/08/2014 None diabetes mellitus Pertinent Findings Denies dizziness 11/08/2014 None diabetes mellitus Pertinent Findings Denies dyspnea 11/08/2014 None diabetes mellitus Pertinent Findings Denies increased hunger 11/08/2014 None diabetes mellitus Pertinent Findings Denies lethargy 11/08/2014 None diabetes mellitus Pertinent Findings Denies polyphagia 11/08/2014 None diabetes mellitus Pertinent Findings Denies polyuria 11/08/2014 None diabetes mellitus Pertinent Findings Denies vomiting 11/08/2014 None diabetes mellitus Test results Pt not checking blood glucose readings at home 11/08/2014 None hypertension Quality chronic 11/08/2014 None hypertension Onset and Resolution ongoing 11/08/2014 None hypertension Onset of Symptom during adulthood 11/08/2014 None hypertension Severity mild 11/08/2014 None hypertension Blood Pressure Values not checking blood pressure at home 11/08/2014 None diabetes mellitus Quality non-insulin dependent 07/26/2014 None diabetes mellitus Quality acute 07/26/2014 None diabetes mellitus Nutrition regular diet 07/26/2014 None diabetes mellitus Pertinent Findings Denies dizziness 07/26/2014 None diabetes mellitus Pertinent Findings Denies dyspnea 07/26/2014 None diabetes mellitus Pertinent Findings Denies increased hunger 07/26/2014 None diabetes mellitus Pertinent Findings Denies lethargy 07/26/2014 None diabetes mellitus Pertinent Findings Denies polyphagia 07/26/2014 None diabetes mellitus Pertinent Findings Denies polyuria 07/26/2014 None diabetes mellitus Pertinent Findings Denies vomiting 07/26/2014 None diabetes mellitus Onset of Symptom onset as an adult 07/26/2014 None diabetes mellitus Test results Pt not checking blood glucose readings at home 07/26/2014 None diabetes mellitus Glucose monitoring does not test 07/26/2014 None rash Location-Major on the arms 06/17/2014 None rash Color red 2014 None rash Onset of Symptom 1 week ago 06/17/2014 None rash Pertinent Findings Denies itching 06/17/2014 None rash Pertinent Findings Denies pain 06/17/2014 None diabetes mellitus Quality non-insulin dependent 04/14/2014 None diabetes mellitus Quality acute 04/14/2014 None diabetes mellitus Test results HgbA1c level 5.9 04/14/2014 here for diabetic education diabetes mellitus Glucose monitoring does not test 04/14/2014 None diabetes mellitus Nutrition regular diet 04/14/2014 None diabetes mellitus Exercise no exercise 04/14/2014 None diabetes mellitus Onset of Symptom onset as an adult 04/14/2014 None diabetes mellitus Pertinent Findings Denies vomiting 04/14/2014 None diabetes mellitus Pertinent Findings Denies dizziness 04/14/2014 None diabetes mellitus Pertinent Findings Denies dyspnea 04/14/2014 None diabetes mellitus Pertinent Findings Denies increased hunger 04/14/2014 None diabetes mellitus Pertinent Findings Denies lethargy 04/14/2014 None diabetes mellitus Pertinent Findings Denies polyuria 04/14/2014 None diabetes mellitus Pertinent Findings Denies polyphagia 04/14/2014 None back pain Onset of Symptom 2 weeks ago 04/05/2014 pain got worse Friday. back pain Frequency of Episodes increasing 04/05/2014 None back pain Pertinent Findings Denies chills 04/05/2014 None back pain Pertinent Findings Denies fever 04/05/2014 None vomiting Onset of Symptom 1 days ago 04/05/2014 had two episodes of vomiting yesterday vomiting Pertinent Findings Denies fever 04/05/2014 None vomiting Pertinent Findings back pain 04/05/2014 None vomiting Pertinent Findings Denies chills 04/05/2014 None diarrhea Onset of Symptom 1 days ago 04/05/2014 three episodes yesterday diarrhea Pertinent Findings Denies chills 04/05/2014 None diarrhea Pertinent Findings Denies fever 04/05/2014 None diarrhea Pertinent Findings emesis 04/05/2014 None back pain Location diffusely 04/05/2014 right low back into buttock back pain Quality acute 04/05/2014 None back pain Onset and Resolution ongoing 04/05/2014 None back pain Limitation on Activities does not limit activities 04/05/2014 None back pain Triggers no known associated factors 04/05/2014 None back pain Exacerbating Factors position change 04/05/2014 None back pain Radiating down the right leg 04/05/2014 into buttock back pain Mechanism of injury low energy 04/05/2014 helping son in law put water line in 2 weeks ago back pain Severity mild 04/05/2014 None vomiting Onset and Resolution resolved 04/05/2014 None diarrhea Onset and Resolution resolved 04/05/2014 None diarrhea Limitation on Activities does not limit activities 04/05/2014 None diarrhea Frequency of Episodes decreasing 04/05/2014 None hypertension Blood Pressure Values not checking blood pressure at home 12/28/2013 None hypertension Quality chronic 12/28/2013 None hypertension Onset and Resolution ongoing 12/28/2013 None hypertension Onset of Symptom during adulthood 12/28/2013 None hypertension Alleviating Factors medication 12/28/2013 None sore throat Location in the left peritonsillar area 10/04/2013 None sore throat Quality stabbing 10/04/2013 None sore throat Onset of Symptom days ago 10/04/2013 4 sore throat Triggers swallowing 10/04/2013 None sore throat Pertinent Findings cough 10/04/2013 None sore throat Pertinent Findings decreased energy level 10/04/2013 None sore throat Pertinent Findings Denies fever 10/04/2013 None sore throat Pertinent Findings hoarseness 10/04/2013 None hypertension Blood Pressure Values not checking blood pressure at home 08/24/2013 None hypertension Pertinent Findings Denies dizziness 08/24/2013 None hypertension Pertinent Findings Denies dyspnea 08/24/2013 None hypertension Pertinent Findings Denies edema 08/24/2013 None hypertension Quality chronic 08/24/2013 None hypertension Onset and Resolution ongoing 08/24/2013 None hypertension Onset of Symptom during adulthood 08/24/2013 None hypertension Triggers no known associated factors 08/24/2013 None hypertension Blood Pressure Values not checking blood pressure at home 05/11/2013 None hypertension Pertinent Findings Denies dizziness 05/11/2013 None hypertension Pertinent Findings Denies dyspnea 05/11/2013 None hypertension Pertinent Findings Denies edema 05/11/2013 None hypertension Quality chronic 05/11/2013 None hypertension Onset and Resolution ongoing 05/11/2013 None hypertension Onset of Symptom during adulthood 05/11/2013 None hypertension Triggers no known associated factors 05/11/2013 None eye foreign body Location on the right eye 04/27/2013 states last friday got saw dust in eye eye foreign body Quality acute 04/27/2013 None eye foreign body Onset of Symptom 5 days ago 04/27/2013 None eye foreign body Pertinent Findings eye swelling 04/27/2013 None eye foreign body Onset and Resolution ongoing 04/27/2013 None Advance Directives No Advance Directive data Encounters Encounter Performer Location Codes Date [id number]) [id number] EST. PATIENT, LEVEL III Diagnosis: Essential (primary) hypertension[ICD10: I10] Diagnosis: Mixed hyperlipidemia[ICD10: E78.2] Nicole Hernandez MD, [facility] CPT-4: 64977 01/19/2018 ([id number]) [id number] EST. PATIENT, LEVEL IV Diagnosis: Essential (primary) hypertension[ICD10: I10] Diagnosis: Mixed hyperlipidemia[ICD10: E78.2] Nicole Hernandez MD, [facility] CPT-4: 31832 08/12/2017 [id number] EST. PATIENT, LEVEL IV Diagnosis: Other malaise[ICD10: R53.81] Diagnosis: Other allergic rhinitis[ICD10: J30.89] [facility] CPT-4: 71402 03/05/2017 ([id number]) 19054 EST. PATIENT, LEVEL III Diagnosis: Essential (primary) hypertension[ICD10: I10] Diagnosis: Mixed hyperlipidemia[ICD10: E78.2] Nicole Hernandez MD, [facility] CPT-4: 70741 02/11/2017 ([id number]) PREV VISIT EST AGE 40-64 Diagnosis: Encounter for general adult medical examination with abnormal findings[ICD10: Z00.01] Diagnosis: Essential (primary) hypertension[ICD10: I10] Diagnosis: Mixed hyperlipidemia[ICD10: E78.2] Diagnosis: Impaired fasting glucose[ICD10: R73.01] [facility] CPT-4: 59794 08/14/2016 ([id number]) 43690 EST. PATIENT, LEVEL III Diagnosis: Abrasion, right lower leg, initial encounter[ICD10: S80.811A] Diagnosis: Cough[ICD10: R05] [facility] CPT-4: 08518 05/06/2016 ([id number]) 10754 EST. PATIENT, LEVEL III Diagnosis: Essential (primary) hypertension[ICD10: I10] Diagnosis: Mixed hyperlipidemia[ICD10: E78.2] [facility] CPT-4: 17737 02/13/2016 ([id number]) 06478 EST. PATIENT, LEVEL IV Diagnosis: Essential (primary) hypertension[ICD10: I10] Diagnosis: Pain in right knee[ICD10: M25.561] Diagnosis: Pain in left knee[ICD10: M25.562] [facility] CPT-4: 83057 10/19/2015 ([id number]) 75533 EST. PATIENT, LEVEL III Diagnosis: Essential (primary) hypertension[ICD10: I10] Diagnosis: Mixed hyperlipidemia[ICD10: E78.2] Diagnosis: Primary generalized (osteo)arthritis[ICD10: M15.0] Diagnosis: Bilateral primary osteoarthritis of knee[ICD10: M17.0] [facility] CPT-4: 19110 05/09/2015 ([id number]) 64061 EST. PATIENT, LEVEL III Diagnosis: Acute upper respiratory infection, unspecified[ICD10: J06.9] [facility] CPT-4: 40519 01/03/2015 ([id number]) PREV VISIT EST AGE 40-64 Diagnosis: Routine medical exam[ICD9: V70.0] [facility] CPT-4: 88531 11/08/2014 ([id number]) 22103 EST. PATIENT, LEVEL IV Diagnosis: DIABETES TYPE II[ICD9: 250.00] Diagnosis: ESSENTIAL HYPERTENSION[ICD9: 401.9] Nicole Hernandez MD [facility] CPT-4: 53706 07/26/2014 ([id number]) 15719 EST. PATIENT, LEVEL II Diagnosis: Rash[ICD9: 782.1] Susana Hernandez MD, [facility] CPT-4: 38286 06/17/2014 ([id number]) 47718 EST. PATIENT, LEVEL III Diagnosis: Elevated blood sugar[ICD9: 790.29] Diagnosis: Elevated hemoglobin[ICD9: 282.7] Nicole Hernandez MD [facility] CPT-4: 60869 04/14/2014 ([id number]) 11164 EST. PATIENT, LEVEL IV Diagnosis: Right flank pain[ICD9: 789.09] Diagnosis: Sacroiliitis[ICD9: 720.2] Diagnosis: ESSENTIAL HYPERTENSION[ICD9: 401.9] Diagnosis: Elevated blood sugar[ICD9: 790.29] Susana Hernandez MD, [facility] CPT-4: 80999 04/05/2014 ([id number]) 87410 EST. PATIENT, LEVEL III Diagnosis: ESSENTIAL HYPERTENSION[ICD9: 401.9] Nicole Hernandez MD [facility] CPT-4: 45639 12/28/2013 ([id number]) 17931 EST. 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 PATIENT, LEVEL IV Diagnosis: ESSENTIAL HYPERTENSION[ICD9: 401.9] Diagnosis: HYPERLIPIDEMIA[ICD9: 272.4] Diagnosis: Elevated bilirubin[ICD9: 782.4] Nicole Hernandez MD, [facility] CPT- 4: 00356 08/24/2013 ([id number]) 73700 EST. PATIENT, LEVEL IV Diagnosis: HYPERLIPIDEMIA[ICD9: 272.4] Diagnosis: ESSENTIAL HYPERTENSION[SNOMED: 95355810] Diagnosis: Abnormal glucose[ICD9: 790.29] [facility] CPT- 4: 20875 05/11/2013 ([id number]) OFFICE VISIT, NEW - LEVEL 3 Diagnosis: ESSENTIAL HYPERTENSION[SNOMED: 11183538] Diagnosis: External hordeolum[ICD9: 373.11] [facility] CPT-4: 91026 04/27/2013 Plan of Care Planned Activity Notes Codes Status Date Referral: Annabelle Alvarenga Patient informed. Referral info faxed. Completed Appointment: Nicole Hernandez WPtel: [facility] [place] [facility] (15 min) Moderate 02/11/2018 Visit Plan: Hypertension - well controlled - continue with current medications, continue with no added salt diet. Pt has been encouraged to exercise daily. The pt has been advised to call the office if there are any acute concerns about change in blood pressure readings at home. Hyperlipidemia - not well controlled -with high triglycerides he cannot take statins - I have recommended a referral to Dr. Alvarenga for March 2018. 01/19/2018 Appointment: Nicole Hernandez WPtel: [facility] (15 min) Moderate 01/19/2018 Patient Education: Patient Medication Summary Completed 01/19/2018 Patient Education: Cholesterol Management Completed 01/19/2018 Care Plan: Referral Order SNOMED-CT : [id number] Pending 01/19/2018 Visit Plan: Hypertension - well controlled - continue with current medications, continue with no added salt diet. Pt has been encouraged to exercise daily. The pt has been advised to call the office if there are any acute concerns about change in blood pressure readings at home. Hyperlipidemia - pt has been counseled about appropriate diet, exercise, and need for low fat food choices. I have discussed the need for the patient to take medications as prescribed. If the patient has negative side effects from the medication, they are to CALL the office and not abruptly discontinue the medication without discussion with a practitioner in the office. We will check labs in 3-6 months for follow up on the patient's chronic medical problem and to assure normal liver response to medications. 08/12/2017 Appointment: Nicole Hernandez WPtel:[phone] [facility] (30 min) Complex 08/12/2017 Patient Education: Patient Medication Summary Completed 08/12/2017 Visit Plan: Malaise, chills - will swab for flu and treat as indicated - pt is to notify clinic if symptoms do not improve, if they worsen , or with any changes, questions, or concerns. Allergies - chronic - recommended pt to use allergy medication as prescribed. Pt has been counseled as to the appropriate use of the medication. Pt to call if allergy symptoms are not controlled with the medication. If using nasal spray, instructions as follows: Nasal spray- use twice daily, one spray per nostril twice daily, after 30 minutes, rinse out nose with saline spray.. Use opposite hand per nostril to spray in the nasal steroid allergy spray. 03/05/2017 Appointment: Cortney Lynn WPtel: [phone] [facility] (15 min) Moderate 03/05/2017 Patient Education: Patient Medication Summary Completed 03/05/2017 Visit Plan: Hypertension - well controlled - continue with current medications, continue with no added salt diet. Pt has been encouraged to exercise daily. The pt has been advised to call the office if there are any acute concerns about change in blood pressure readings at home. Hyperlipidemia - pt has been counseled about appropriate diet, exercise, and need for low fat food choices. I have discussed the need for the patient to take medications as prescribed. If the patient has negative side effects from the medication, they are to CALL the office and not abruptly discontinue the medication without discussion with a practitioner in the office. We will check labs in 3-6 months for follow up on the patient's chronic medical problem and to assure normal liver response to medications. Knee pain - chronic. 02/11/2017 Appointment: Nicole Hernandez WPtel: [phone] [facility] (15 min) Moderate 02/11/2017 Patient Education: Patient Medication Summary Completed 02/11/2017 Patient Education: Obesity Completed 02/11/2017 Visit Plan: Well Adult - pt was counseled about diet, exercise, and encouraged to follow a heart healthy diet and increase activity level. The patient was instructed to RTC yearly for well adult exams and PRN for acute illnesses. The pt was also instructed to have yearly labs for check of cholesterol, thyroid, chem panel, CBC, and renal functioning. Hypertension - well controlled - continue with current medications, continue with no added salt diet. Pt has been encouraged to exercise daily. The pt has been advised to call the office if there are any acute concerns about change in blood pressure readings at home. Hyperlipidemia - pt has been counseled about appropriate diet , exercise, and need for low fat food choices. I have discussed the need for the patient to take medications as prescribed. If the patient has negative side effects from the medication, they are to CALL the office and not abruptly discontinue the medication without discussion with a practitioner in the office. We will check labs in 3-6 months for follow up on the patient's chronic medical problem and to assure normal liver response to medications. 08/14/2016 Appointment: Nicole Hernandez WPtel: [facility] Physical 08/14/2016 Patient Education: Patient Medication Summary Completed 08/14/2016 Care Plan: Urinalysis Pending 08/14/2016 Visit Plan: Abrasion right lower leg-bactroban ointment as directed-call if symptoms do no resolve or if any worse-patient verbalized understanding URI-cough- Pt advised to increase fluids, vitamin C. Rocephin and kenalog injections today in the office- Discussed natural and expected course of this diagnosis and need to alert me if symptoms do not follow expected course , or if any worse. RX sent to patient's pharmacy. 05/06/2016 Appointment: Susana Cottrell WPtel: [phone] (15 min) Moderate 05/06/2016 Patient Education: Patient Medication Summary Completed 05/06/2016 Visit Plan: Hypertension - well controlled - continue with current medications, continue with no added salt diet. Pt has been encouraged to exercise daily. The pt has been advised to call the office if there are any acute concerns about change in blood pressure readings at home. Hyperlipidemia - pt has been counseled about appropriate diet, exercise, and need for low fat food choices. I have discussed the need for the patient to take medications as prescribed. If the patient has negative side effects from the medication, they are to CALL the office and not abruptly discontinue the medication without discussion with a practitioner in the office. We will check labs in 3-6 months for follow up on the patient's chronic medical problem and to assure normal liver response to medications. Arthritis - continue with anti-inflammatory - call if not improving. 02/13/2016 Appointment: Nicole Hernandez WPtel: [facility]9 [facility] (15 min) Moderate 02/13/2016 Patient Education: Patient Medication Summary Completed 02/13/2016 Patient Education: Obesity Completed 02/13/2016 Visit Plan: Hypertension - well controlled - continue with current medications, continue with no added salt diet. Pt has been encouraged to exercise daily. The pt has been advised to call the office if there are any acute concerns about change in blood pressure readings at home. Knee pain - bilateral - advised the following: one aleve twice daily. on left side - suspected arthritis below patella on right right side - suspect meniscal tear if the aleve twice daily for two weeks - if not better- call doctor 10/19/2015 Patient Education: Patient Medication Summary Completed 10/19/2015 Patient Education: Obesity Completed 10/19/2015 Patient Education: Hypertension Completed 10/19/2015 Appointment: Nicole Hernandez WPtel: [facility] (15 min) Moderate 09/11/2015 Visit Plan: Hypertension - well controlled - continue with current medications, continue with no added salt diet. Pt has been encouraged to exercise daily. The pt has been advised to call the office if there are any acute concerns about change in blood pressure readings at home. Hyperlipidemia - pt has been counseled about appropriate diet, exercise, and need for low fat food choices. I have discussed the need for the patient to take medications as prescribed. If the patient has negative side effects from the medication, they are to CALL the office and not abruptly discontinue the medication without discussion with a practitioner in the office. We will check labs in 3-6 months for follow up on the patient's chronic medical problem and to assure normal liver response to medications. Arthritis- occasionally uncontrolled symptoms- recommend pt to take antiinflammatory as directed for pain control. Use tylenol for break through pain symptoms. 05/09/2015 Appointment: Nicole Hernandez WPtel: [phone] [facility] (15 min) Moderate 05/09/2015 Patient Education: Patient Medication Summary Completed 05/09/2015 Patient Education: Obesity Completed 05/09/2015 Patient Education: Hypertension Completed 05/09/2015 Care Plan: COMPLETE CBC AUTOMATED LOINC : 40252-9 Ordered 05/09/2015 Visit Plan: URI - Pt advised to increase fluids, vitamin C. Discussed natural and expected course of this diagnosis and need to alert me if symptoms do not follow expected course, or if any worse. Symptoms have improved-patient finished zpack today-instructed him to call if symptoms do not completely resolve and we will refill the ZPACK. Patient verbalized understanding of plan. 01/03/2015 Patient Education: Patient Medication Summary Completed 01/03/2015 Visit Plan: Well Adult - pt was counseled about diet, exercise, and encouraged to follow a heart healthy diet and increase activity level. The patient was instructed to RTC yearly for well adult exams and PRN for acute illnesses. The pt was also instructed to have yearly labs for check of cholesterol, thyroid, chem panel, CBC, and renal functioning. 11/08/2014 Appointment: Nicole Hernandez WPtel: [facility]5 [facility] (15 min) Moderate 11/08/2014 Patient Education: Patient Medication Summary Completed 11/08/2014 Patient Education: Hypertension Completed 11/08/2014 Visit Plan: Hypertension - well controlled - continue with current medications, continue with no added salt diet. Pt has been encouraged to exercise daily. The pt has been advised to call the office if there are any acute concerns about change in blood pressure readings at home. Diabetes Mellitus - controlled - per recent FSBS reports. I have recommended for the patient to have follow up labs prior to the next office visit. The patient has been instructed to continue with current medications as previously directed, continue with regular FSBS monitoring to assure continued control of diabetes. Pt to call for any acute concerns, complaints, or if the blood glucose readings are starting to become less controlled. 07/26/2014 Appointment: Nicole Hernandez WPtel: [facility]8 [facility] Follow up 07/26/2014 Patient Education: Patient Medication Summary Completed 07/26/2014 Patient Education: Hypertension Completed 07/26/2014 Appointment: Follow up 07/15/2014 Visit Plan: Gnza-evnhlmz-kccu scrubbing rash-stop DESTIN-stop peroxide-Rx for bactroban to use as directed-call if symptoms do not resolve or if any worse. 06/17/2014 Appointment: Sick 06/17/2014 Patient Education: Patient Medication Summary Completed 06/17/2014 Visit Plan: Elevated blood sugar-Hgb A1C 5.9%-discussed diabetes with the patient today-discussed diet, exercise and weight loss. Recommend cutting out all sugary drinks, cut back on sweets and cut amounts of breads/potatoes/pasta in half. Increase lean protein and veggies. Recommend regular exercise. Repeat labs in 3-4 months. Patient verbalized understanding of plan. Elevated Hgb-recommend evaluation for hemochromatosis 04/14/2014 Appointment: Follow up 04/14/2014 Patient Education: Patient Medication Summary Completed 04/14/2014 Visit Plan: Sacroiliitis - back exercises discussed with the patient, pt to continue with anti-inflammatories. Pt is to call if the symptoms do not improve or if they worsen. Right low back/flank pain-UA negative -toradol injection today in the office-take anti inflammatories as directed- rest and stretching exercises as directed and call if pain does not resolve or if any worse or new symptoms develop Elevated blood sugar-check Hgb A1C Hypertension - well controlled - continue with current medications, continue with no added salt diet. Pt has been encouraged to exercise daily. The pt has been advised to call the office if there are any acute concerns about change in blood pressure readings at home. 04/05/2014 Appointment: Sick 04/05/2014 Patient Education: Patient Medication Summary Completed 04/05/2014 Patient Education: Hypertension Completed 04/05/2014 Visit Plan: Hypertension - well controlled - continue with current medications, continue with no added salt diet. Pt has been encouraged to exercise daily. The pt has been advised to call the office if there are any acute concerns about change in blood pressure readings at home. 12/28/2013 Appointment: Nicole Hernandez WPtel: [phone] [facility] Follow up 12/28/2013 Patient Education: Patient Medication Summary Completed 12/28/2013 Patient Education: Hypertension Completed 12/28/2013 Visit Plan: TMJ - kenalog shot today - pt to call and let us know if the symptoms do not improve. 10/04/2013 Appointment: Nicole Hernandez WPtel: [facility] [facility] 10/04/2013 Patient Education: Patient Medication Summary Completed 10/04/2013 Visit Plan: Hypertension - well controlled - continue with current medications, continue with no added salt diet. Pt has been encouraged to exercise daily. The pt has been advised to call the office if there are any acute concerns about change in blood pressure readings at home. Hyperlipidemia - pt has been counseled about appropriate diet, exercise, and need for low fat food choices. I have discussed the need for the patient to take medications as prescribed. If the patient has negative side effects from the medication, they are to CALL the office and not abruptly discontinue the medication without discussion with a practicioner in the office. We will check labs in 3-6 months for follow up on the patient's chronic medical problem and to assure normal liver response to medications. Elevated liver enzymes - check labs in 6 weeks. 08/24/2013 Appointment: Nicole Hernandez WPtel: [facility]5 [facility] Follow up 08/24/2013 Patient Education: Patient Medication Summary Completed 08/24/2013 Visit Plan: Hyperlipidemia - pt has been counseled about appropriate diet, exercise, and need for low fat food choices. I have discussed the need for the patient to take medications as prescribed. If the patient has negative side effects from the medication, they are to CALL the office and not abruptly discontinue the medication without discussion with a practicioner in the office. We will check labs in 3-6 months for follow up on the patient's chronic medical problem and to assure normal liver response to medications. Pt started on lipitor. HTN - not optimally controlled - but much improved - pt to adjust his diet and will have less sodium in his diet, monitor pressures. Abnormal glucose - recommended dietary changes - will repeat labs in about 3 months. 05/11/2013 Appointment: Nicole Hernandez WPtel: [facility] Follow up 05/11/2013 Patient Education: Patient Medication Summary Completed 05/11/2013 Patient Education: Hypertension Completed 05/11/2013 Visit Plan: Hypertension - uncontrolled - the patient has been started on metoprolol sucinate 25mg daily. The patient has been counseled to cut back on salt in diet for a no added salt diet, low fat diet, start an exercise program with low weight bearing exercises and higher aerobic activity for heart health. The patient is to check blood pressure readings as an outpatient and either fax, call, or email the readings to the office next week for practicioner to review. The pt is to call for acute concerns. Stye - rx for gentamycin drops to be used for 7-10 days. 04/27/2013 Appointment: Nicole Hernandez WPtel: [facility]5 [facility] New Patient 04/27/2013 Patient Education: Patient Medication Summary Completed 04/27/2013 Patient Education: Hypertension Completed 04/27/2013 Referral: Annabelle Alvarenga Referral Appointment Requested Instructions Comment . Malaise, chills - will swab for flu and treat as indicated - pt is to notify clinic if symptoms do not improve, if they worsen, or with any changes, questions, or concerns. Allergies - chronic - recommended pt to use allergy medication as prescribed. Pt has been counseled as to the appropriate use of the medication. Pt to call if allergy symptoms are not controlled with the medication. If using nasal spray, instructions as follows: Nasal spray- use twice daily, one spray per nostril twice daily, after 30 minutes, rinse out nose with saline spray.. Use opposite hand per nostril to spray in the nasal steroid allergy spray. . Well Adult - pt was counseled about diet, exercise, and encouraged to follow a heart healthy diet and increase activity level. The patient was instructed to RTC yearly for well adult exams and PRN for acute illnesses. The pt was also instructed to have yearly labs for check of cholesterol, thyroid, chem panel, CBC, and renal functioning. . Hyperlipidemia - pt has been counseled about appropriate diet, exercise, and need for low fat food choices. I have discussed the need for the patient to take medications as prescribed. If the patient has negative side effects from the medication, they are to CALL the office and not abruptly discontinue the medication without discussion with a practicioner in the office. We will check labs in 3-6 months for follow up on the patient's chronic medical problem and to assure normal liver response to medications. Pt started on lipitor. HTN - not optimally controlled - but much improved - pt to adjust his diet and will have less sodium in his diet, monitor pressures. Abnormal glucose - recommended dietary changes - will repeat labs in about 3 months. . TMJ - kenalog shot today - pt to call and let us know if the symptoms do not improve. . Hypertension - uncontrolled - the patient has been started on metoprolol sucinate 25mg daily. The patient has been counseled to cut back on salt in diet for a no added salt diet, low fat diet, start an exercise program with low weight bearing exercises and higher aerobic activity for heart health. The patient is to check blood pressure readings as an outpatient and either fax , call, or email the readings to the office next week for practicioner to review. The pt is to call for acute concerns. Stye - rx for gentamycin drops to be used for 7-10 days. . URI - Pt advised to increase fluids, vitamin C. Discussed natural and expected course of this diagnosis and need to alert me if symptoms do not follow expected course, or if any worse. Symptoms have improved- patient finished zpack today-instructed him to call if symptoms do not completely resolve and we will refill the ZPACK. Patient verbalized understanding of plan. . Hypertension - well controlled - continue with current medications, continue with no added salt diet. Pt has been encouraged to exercise daily. The pt has been advised to call the office if there are any acute concerns about change in blood pressure readings at home. Hyperlipidemia - pt has been counseled about appropriate diet, exercise, and need for low fat food choices. I have discussed the need for the patient to take medications as prescribed. If the patient has negative side effects from the medication, they are to CALL the office and not abruptly discontinue the medication without discussion with a practitioner in the office. We will check labs in 3-6 months for follow up on the patient's chronic medical problem and to assure normal liver response to medications. . Hypertension - well controlled - continue with current medications, continue with no added salt diet. Pt has been encouraged to exercise daily. The pt has been advised to call the office if there are any acute concerns about change in blood pressure readings at home. Hyperlipidemia - not well controlled -with high triglycerides he cannot take statins - I have recommended a referral to Dr. Alvarenga for March 2018. . Elevated blood sugar-Hgb A1C 5.9%-discussed diabetes with the patient today-discussed diet, exercise and weight loss. Recommend cutting out all sugary drinks, cut back on sweets and cut amounts of breads/ potatoes/pasta in half. Increase lean protein and veggies. Recommend regular exercise. Repeat labs in 3-4 months. Patient verbalized understanding of plan. Elevated Hgb-recommend evaluation for hemochromatosis one aleve twice daily. on left side - suspected arthritis below patella on right right side - suspect meniscal tear if the aleve twice daily for two weeks - if not better- call doctor . Hypertension - well controlled - continue with current medications, continue with no added salt diet. Pt has been encouraged to exercise daily. The pt has been advised to call the office if there are any acute concerns about change in blood pressure readings at home. Knee pain - bilateral - advised the following: one aleve twice daily. on left side - suspected arthritis below patella on right right side - suspect meniscal tear if the aleve twice daily for two weeks - if not better- call doctor take either two tylenol or two ibuprofen before bed to help you sleep better . Well Adult - pt was counseled about diet, exercise, and encouraged to follow a heart healthy diet and increase activity level. The patient was instructed to RTC yearly for well adult exams and PRN for acute illnesses. The pt was also instructed to have yearly labs for check of cholesterol, thyroid, chem panel, CBC, and renal functioning. Hypertension - well controlled - continue with current medications, continue with no added salt diet. Pt has been encouraged to exercise daily. The pt has been advised to call the office if there are any acute concerns about change in blood pressure readings at home. Hyperlipidemia - pt has been counseled about appropriate diet, exercise, and need for low fat food choices. I have discussed the need for the patient to take medications as prescribed. If the patient has negative side effects from the medication, they are to CALL the office and not abruptly discontinue the medication without discussion with a practitioner in the office. We will check labs in 3-6 months for follow up on the patient's chronic medical problem and to assure normal liver response to medications. . Hypertension - well controlled - continue with current medications, continue with no added salt diet. Pt has been encouraged to exercise daily. The pt has been advised to call the office if there are any acute concerns about change in blood pressure readings at home. Hyperlipidemia - pt has been counseled about appropriate diet, exercise, and need for low fat food choices. I have discussed the need for the patient to take medications as prescribed. If the patient has negative side effects from the medication, they are to CALL the office and not abruptly discontinue the medication without discussion with a practicioner in the office. We will check labs in 3-6 months for follow up on the patient's chronic medical problem and to assure normal liver response to medications. Elevated liver enzymes - check labs in 6 weeks. . Tuie-lqpmqqi-awtp scrubbing rash-stop DESTIN-stop peroxide- Rx for bactroban to use as directed-call if symptoms do not resolve or if any worse. . Hypertension - well controlled - continue with current medications, continue with no added salt diet. Pt has been encouraged to exercise daily. The pt has been advised to call the office if there are any acute concerns about change in blood pressure readings at home. . Hypertension - well controlled - continue with current medications, continue with no added salt diet. Pt has been encouraged to exercise daily. The pt has been advised to call the office if there are any acute concerns about change in blood pressure readings at home. Hyperlipidemia - pt has been counseled about appropriate diet, exercise, and need for low fat food choices. I have discussed the need for the patient to take medications as prescribed. If the patient has negative side effects from the medication, they are to CALL the office and not abruptly discontinue the medication without discussion with a practitioner in the office. We will check labs in 3-6 months for follow up on the patient's chronic medical problem and to assure normal liver response to medications. Arthritis - continue with anti-inflammatory - call if not improving. . Hypertension - well controlled - continue with current medications, continue with no added salt diet. Pt has been encouraged to exercise daily. The pt has been advised to call the office if there are any acute concerns about change in blood pressure readings at home. Diabetes Mellitus - controlled - per recent FSBS reports. I have recommended for the patient to have follow up labs prior to the next office visit. The patient has been instructed to continue with current medications as previously directed, continue with regular FSBS monitoring to assure continued control of diabetes. Pt to call for any acute concerns, complaints, or if the blood glucose readings are starting to become less controlled. . Sacroiliitis - back exercises discussed with the patient , pt to continue with anti-inflammatories. Pt is to call if the symptoms do not improve or if they worsen. Right low back/flank pain-UA negative-toradol injection today in the office- take anti inflammatories as directed-rest and stretching exercises as directed and call if pain does not resolve or if any worse or new symptoms develop Elevated blood sugar-check Hgb A1C Hypertension - well controlled - continue with current medications, continue with no added salt diet. Pt has been encouraged to exercise daily. The pt has been advised to call the office if there are any acute concerns about change in blood pressure readings at home. . Hypertension - well controlled - continue with current medications, continue with no added salt diet. Pt has been encouraged to exercise daily. The pt has been advised to call the office if there are any acute concerns about change in blood pressure readings at home. Hyperlipidemia - pt has been counseled about appropriate diet, exercise, and need for low fat food choices. I have discussed the need for the patient to take medications as prescribed. If the patient has negative side effects from the medication, they are to CALL the office and not abruptly discontinue the medication without discussion with a practitioner in the office. We will check labs in 3-6 months for follow up on the patient's chronic medical problem and to assure normal liver response to medications. Knee pain - chronic. Glucosamine and chondroitin (joint juice, joint ease, move free - these are the brand-names) - this is what you need to take to help re- lubricate your joints. . Hypertension - well controlled - continue with current medications, continue with no added salt diet. Pt has been encouraged to exercise daily. The pt has been advised to call the office if there are any acute concerns about change in blood pressure readings at home. Hyperlipidemia - pt has been counseled about appropriate diet, exercise, and need for low fat food choices. I have discussed the need for the patient to take medications as prescribed. If the patient has negative side effects from the medication, they are to CALL the office and not abruptly discontinue the medication without discussion with a practitioner in the office. We will check labs in 3-6 months for follow up on the patient's chronic medical problem and to assure normal liver response to medications. Arthritis- occasionally uncontrolled symptoms- recommend pt to take antiinflammatory as directed for pain control. Use tylenol for break through pain symptoms. . Abrasion right lower leg-bactroban ointment as directed- call if symptoms do no resolve or if any worse-patient verbalized understanding URI-cough- Pt advised to increase fluids, vitamin C. Rocephin and kenalog injections today in the office- Discussed natural and expected course of this diagnosis and need to alert me if symptoms do not follow expected course, or if any worse. RX sent to patient's pharmacy.
--- OUTSIDE RECORDS SUMMARY | 2018-05-09 12:50 | XMS REPORT | CCD ---
Author Author Nicole Hernandez Organization Nicole Hernandez MD, [facility] Address [address] [place] [address] Phone Care Team Providers Care Boiler Erector Name Role Phone PP Unavailable CCM Unavailable Summary Purpose Interface Exchange Insurance Providers Payer name Policy type / Coverage type Covered alliance party ID Effective Begin Date Effective End Date [facility] [employer] [facility] [id number] 2014 Unknown Family history Father Diagnosis Age [...] 04/27/2013 Employment Unknown Currently employed works at [employer] 04/27/[address]: 6831439 Former smoker quit 1980 04/27/2013 Alcohol history Unknown occasionally drinks alcohol 2 weekly 04/27/2013 Has the patient ever used illegal drugs? Unknown Has never used illegal drugs 04/27/2013 Allergies, Adverse Reactions, Alerts Substance Reaction Codes Entered Date Inactivated Date Status * NO KNOWN FOOD ALLERGIES Unknown 04/27/2013 No Inactive Date Active Seasonal Unknown 04/27/2013 No Inactive Date Active UOCQCGE-YAR-[facility] REDUCTASE INHIBITORS myalgias Unknown 2014 No Inactive [...] Start Date Stop Date Status Fill Instructions Zithromax Z-Kennedy 250 mg tablet RxNorm: 626568 1 Tablet(s) PO UD 06/12/2017 06/16/2017 Inactive zpack metoprolol succinate ER 25 mg tablet,extended release 24 hr RxNorm: 754089 1 TABLET(S) PO DAILY 1 TABLET(S) PO DAILY 06/02/2017 04/27/2018 Active coenzyme Q10 10 mg tablet RxNorm: 065280 1 Tablet(s) PO daily 09/06/2016 09/05/2016 Inactive atorvastatin 20 mg tablet RxNorm: 367627 1 Tablet(s) PO every other day at bedtime 09/06/2016 09/05/2016 Inactive atorvastatin 20 mg tablet RxNorm: 450090 1 Tablet(s) PO every other day at bedtime 09/06/2016 02/10/2017 Inactive coenzyme Q10 10 mg tablet RxNorm: 225302 1 Tablet(s) PO daily 09/06/2016 02/10/2017 Inactive metoprolol succinate ER 25 mg tablet,extended release 24 hr RxNorm: 339026 1 TABLET(S) PO DAILY 1 TABLET(S) PO DAILY 07/01/2016 05/26/2017 Inactive Kenalog 40 mg/mL suspension for injection RxNorm: 9051973 1 Milliliter(s) Inj 05/06/2016 05/06/2016 Inactive mupirocin 2 % topical ointment RxNorm: 517089 1 Application TOP BID 05/06/2016 05/15/2016 Inactive ceftriaxone 500 mg solution for injection RxNorm: 3497390 1 Milliliter(s) Inj 05/06/2016 05/06/2016 Inactive Zithromax Z-Kennedy 250 mg tablet RxNorm: 124181 1 Tablet(s) PO UD 05/06/2016 05/10/2016 Inactive zpack Voltaren 1 % topical gel RxNorm: 176162 4 Gram(s) TOP QID 04/1804/17/2016 Inactive Voltaren 1 % topical gel RxNorm: 216295 4 Gram(s) TOP QID as needed 04/18/2016 01/18/2018 Inactive metoprolol succinate ER 25 mg tablet,extended release 24 hr RxNorm: 457522 1 Tablet(s) PO daily 1 TABLET(S) PO DAILY 06/12/2015 06/05/2016 Inactive Zithromax Z-Kennedy 250 mg tablet RxNorm: 315229 1 Tablet(s) PO UD 12/30/2014 01/03/2015 Inactive zpack Zithromax Z-Kennedy 250 mg tablet RxNorm: 807092 1 Tablet(s) PO UD 12/30/2014 12/29/2014 Inactive zpack metoprolol succinate ER 25 mg tablet,extended release 24 hr RxNorm: 506513 TAKE 1 TABLET BY MOUTH DAILY 12/13/20142017 Inactive Probiotic & Acidophilus 300 million cell-250 mg capsule RxNorm: 1 Capsule(s) PO BID 12/09/2014 12/15/2014 Inactive amoxicillin 875 mg tablet RxNorm: 717574 1 Tablet(s) PO BID 11/201412/15/2014 Inactive Probiotic & Acidophilus 300 million cell-250 mg capsule RxNorm: 1 Capsule(s) PO BID 12/09/2014 12/08/2014 Inactive amoxicillin 875 mg tablet RxNorm: 944190 1 Tablet(s) PO BID 11/201412/08/2014 Inactive metoprolol succinate ER 25 mg tablet,extended release 24 hr RxNorm: 676307 1 Tablet(s) PO daily 1 TABLET(S) PO DAILY 06/23/2014 06/11/2015 Inactive mupirocin 2 % topical ointment RxNorm: 150299 1 Application TOP BID 06/17/2014 06/23/2014 Inactive metoprolol succinate ER 25 mg tablet,extended release 24 hr RxNorm: 832824 1 TABLET(S) PO DAILY 05/23/2014 11/18/2014 Inactive metoprolol succinate ER 25 mg tablet,extended release 24 hr RxNorm: 155667 1 Tablet(s) PO daily 1 TABLET(S) PO DAILY 05/23/2014 06/22/2014 Inactive ketorolac 60 mg/2 mL intramuscular solution RxNorm: 376283 2 Milliliter(s) IM 04/05/2014 04/05/2014 Inactive metoprolol succinate ER 25 mg tablet,extended release 24 hr RxNorm: 403565 1 TABLET(S) PO DAILY 11/23/2013 05/21/2014 Inactive Kenalog 40 mg/mL suspension for injection RxNorm: 6165355 1 Milliliter(s) Inj 10/04/2013 10/04/2013 Inactive amoxicillin 875 mg tablet RxNorm: 009626 1 Tablet(s) PO BID 04/201309/07/2013 Inactive gemfibrozil 600 mg tablet RxNorm: 916749 1 Tablet(s) PO BID 10/28/2013 Inactive atorvastatin 10 mg tablet RxNorm: 806614 1 Tablet(s) PO QPM 01/201405/26/2013 Inactive metoprolol succinate ER 25 mg tablet,extended release 24 hr RxNorm: 344892 1 Tablet(s) PO daily 04/27/2013 11/22/2013 Inactive Gentak 0.3 % eye drops RxNorm: 102292 3 Drop(s) OPH QID 201305/06/2013 Inactive Advil 200 mg tablet RxNorm: 900419 1 Tablet(s) PO every other day No Start Date Active Fish Oil 1,000 mg capsule RxNorm: 1 Capsule(s) PO daily No Start Date Active multivitamin tablet RxNorm: 1 Tablet(s) PO daily No Start Date Active tramadol 50 mg tablet RxNorm: 005028 1 Tablet(s) PO every four to six hours prn No Start Date 05/08/2015 Inactive amoxicillin 875 mg tablet RxNorm: 066361 1 Tablet(s) PO BID No Start Date 08/31/2013 Inactive Crestor 10 mg tablet RxNorm: 608263 1 Tablet(s) PO three times weekly No Start Date 11/07/2014 Inactive Medication Administered Medication Codes Instructions Start Date Status Kenalog 40 mg/mL suspension for injection RxNorm: 4219317 1Milliliter 05/06/2016 No longer Active ceftriaxone 500 mg solution for injection RxNorm: 3576042 1Milliliter 05/06/2016 No longer Active ketorolac 60 mg/2 mL intramuscular solution RxNorm: 127113 2Milliliter 04/05/2014 No longer Active Kenalog 40 mg/mL suspension for injection RxNorm: 1567539 1Milliliter 10/04/2013 No longer Active Immunizations Vaccine Codes Date Status Influenza CVX: 141 04/27/2013 completed Assessments Condition Codes Effective Dates Essential (primary) hypertension ICD-10: I10 ICD-9: 401.1 01/19/2018 Mixed hyperlipidemia ICD-10: E78.2 ICD-9: 272.2 01/19/2018 Other malaise ICD-10: R53.81 ICD-9: 780.79 03/05/2017 Other allergic rhinitis ICD-10: J30.89 ICD-9: 477.8 03/05/2017 Impaired fasting glucose ICD-10: R73.01 ICD-9: 790.21 03/05/2017 Encounter for general adult medical examination with abnormal findings ICD-10: Z00.01 ICD-9: V70.0 08/14/2016 Impaired fasting glucose ICD-10: R73.01 ICD-9: 790.29 08/14/2016 Mixed hyperlipidemia ICD-10: E78.2 ICD-9: 272.4 08/14/2016 Cough ICD-10: R05 ICD-9: 786.2 05/06/2016 [...] infection, unspecified ICD-10: J06.9 ICD-9: 465.9 01/03/2015 ESSENTIAL HYPERTENSION ICD-9: 401.9 11/08 DIABETES TYPE II ICD-9: 250.00 2014 Routine medical exam ICD-9: V70.0 2014 Rash ICD-9: 782.1 06/17/2014 Elevated blood sugar ICD-9: 790.29 2014 Elevated hemoglobin ICD-9: 282.7 2014 Right flank pain ICD-9: 789.09 2014 Sacroiliitis ICD-9: 720.2 04/05/2014 TMJ arthralgia ICD-9: 524.62 10/04/2013 Elevated bilirubin ICD-9: 782.4 2013 HYPERLIPIDEMIA ICD-9: 272.4 08/24/2013 External hordeolum ICD-9: 373.11 2013 Reason For [...] Item Code Result Date C A/B FLU 1504044 Influenza A Scr Negative 03/05/2017 C A/B FLU 5873314 Influenza B Scr Negative 03/05/2017 C A/B FLU 2533936 Influenza Intrp B AG: PRID:PT:NOSE:NOM:IF See Footnote 03/05/2017 A1C HPLC 7494634 A1C HPLC 10101-5 5.9 % 04/05/2014 TSH 5550644 TSH 0.752 uIU/ML 04/05/2014 GFR CALC 8410125 GFR AA >60 ML/MIN 04/05/2014 GFR CALC 4820734 GFR NON-AA >60 ML/MIN 04/05/2014 CBC 2598591 WBC 9.0 10e9/L 04/05/2014 CBC 9621497 RBC 5.97 10e12/L 04/05/2014 CBC 1179241 HGB 18.1 g/dL 04/05/2014 CBC 9320306 HCT DET 51.4 % 04/05/2014 CBC 8974175 MCV 86.1 fL 04/05/2014 CBC 1921999 MCH 30.3 pg 04/05/2014 CBC 1323955 MCHC 35.2 g/dL 04/05/2014 CBC 7010884 PLT 180 10e9/L 04/05/2014 CBC 6460750 MPV 11.1 fL 04/05/2014 CBC 3852165 KATHERIN % 85.9 % 04/05/2014 CBC 0458251 LY % 9.1 % 04/05/2014 CBC 9772311 MON % 4.7 % 04/05/2014 CBC 6968185 EOS % 0.2 % 04/05/2014 CBC 9339592 BASO % 0.1 % 04/05/2014 CBC 3105120 RDW 13.1 % 04/05/2014 CBC 9983966 ABS KATHERIN 7.73 10e9/L 04/05/2014 CBC 8670905 ABS LYMPH 0.82 10e9/L 04/05/2014 CBC 1190689 ABS MONO 0.42 10e9/L 04/05/2014 CBC 3840790 ABS EOS 0.02 10e9/L 04/05/2014 CBC 0226329 ABS BASO 0.01 10e9/L 04/05/2014 CBC 9209146 RDW-SD 40.3 fL 04/05/2014 CHEM 14 7011027 AST 19 U/L 04/05/2014 CHEM 14 0437127 ALT 16 IU/L 04/05/2014 CHEM 14 5811372 BUN 20 MG/DL 04/05/2014 CHEM 14 8077566 ALBUMIN 5.0 GM/DL 04/05/2014 CHEM 14 7664397 CHLORIDE 102 MMOL/L 04/05/2014 CHEM 14 2802983 BILI TOT 2.8 MG/DL 04/05/2014 CHEM 14 2463756 ALK PHOS 47 U/L 04/05/2014 CHEM 14 6220786 SODIUM 137 MMOL/L 04/05/2014 CHEM 14 7296210 CREATININE 1.05 MG/DL 04/05/2014 CHEM 14 6158678 CALCIUM 9.5 MG/DL 04/05/2014 CHEM 14 1698802 POTASSIUM 4.2 MMOL/L 04/05/2014 CHEM 14 2305340 PROT TOT 7.2 GM/DL 04/05/2014 CHEM 14 2523519 GLUCOSE 132 MG/DL 04/05/2014 CHEM 14 6325644 BICARB 25 MMOL/L 04/05/2014 CHEM 14 6319267 ANION GAP 10 MEQ/L 04/05/2014 Review of Systems System Result Effective [...] occlusion 03/05/2017 None Full Exam - General 1995 Ears/Nose/Throat otoscopic exam Tympanic membrane: air- fluid level 03/05/2017 None Full Exam - General 1994 Ears/Nose/Throat lips/teeth/gingiva Overall: benign lips 03/05/2017 None Full Exam - General 1995 Ears/Nose/Throat oral cavity/pharynx/larynx Posterior Pharynx: clear post nasal drainage 03/05/2017 None Full Exam - General 1994 Ears/Nose/Throat oral cavity/pharynx/larynx Overall: oral mucosa clear 03/05/2017 None Full Exam - General 1995 Ears/Nose/Throat oral cavity/pharynx/larynx Oropharynx: erythema 03/05/2017 None [...] dentition 11/08/2014 None Full Exam - General 1995 Ears/Nose/Throat lips/teeth/gingiva Overall: benign gingiva 11/08/2014 None [...] gingiva 12/28/2013 None Full Exam - General 1994 Ears/Nose/Throat lips/teeth/gingiva Overall: no masses 12/28/2013 None [...] dentition 10/04/2013 None Full Exam - General 1994 Ears/Nose/Throat lips/teeth/gingiva Overall: benign gingiva 10/04/2013 None Full Exam - General 1994 Ears/Nose/Throat lips/teeth/gingiva Overall: no masses 10/04/2013 None [...] General 1994 Eyes conjunctiva /eyelids Eyelid: benign 05/11/2013 None [...] CPT-4: J0696 05/06/2016 THER/PROPH/DIAG INJ SC/IM CPT-4: 73806 05/06/2016 TSH (ASSAY THYROID STIM HORMONE) CPT-4: 38492 04/05/2014 CBC (COMPLETE CBC W/AUTO DIFF WBC) CPT-4: 29919 04/05/2014 CHEM 14 (COMPREHEN METABOLIC PANEL) CPT-4: 10876 04/05/2014 HgbA1c CPT-4: 52039 04/05/2014 ROUTINE VENIPUNCTURE CPT-4: 14061 04/05/2014 KETOROLAC TROMETHAMINE INJ CPT-4: J1885 04/05/2014 URINALYSIS NONAUTO W/O SCOPE CPT-4: 42850 04/05/2014 THER/PROPH/DIAG INJ SC/IM CPT-4: 39466 10/04/2013 TRIAMCINOLONE ACET INJ NOS CPT-4: J3301 10/04/2013 Vital Signs Date Vital 01/19/2018 Blood Pressure 1: 146/80 Code : 8480-6 BMI: 30.2 Code : 50115-3 Heart Rate 1 : 74 bpm Height: 6'2" SpO2: 98% Weight: 235 lbs 08/12/2017 Blood Pressure 1: 140/80 Code : 8480-6 BMI: 28.9 Code : 55484-3 Heart Rate 1 : 51 bpm Height: 6'2" SpO2: 97% Weight: 225 lbs 03/05/2017 Blood Pressure 1: 134/78 Code : 8480-6 BMI: 30.8 Code : 49637-6 Heart Rate 1 : 80 bpm Height: 6'2" SpO2: 97% Temperature: 37.6 (C) / 99.7 (F) Weight: 240 lbs 02/11/2017 Blood Pressure 1: 134/82 Code : 8480-6 BMI: 30.7 Code : 32268-7 Heart Rate 1 : 65 bpm Height: 6'2" SpO2: 96% Weight: 239 lbs 08/14/2016 Blood Pressure 1: 152/86 Code : 8480-6 Blood Pressure 1: 140/88 Code: 8480-6 BMI: 30.6 Code: 45279-4 Heart Rate 1: 53 bpm Height: 6'2" SpO2: 98% Weight: 238 lbs 05/06/2016 Blood Pressure 1: 138/76 Code : 8480-6 BMI: 31.3 Code : 14321-9 Heart Rate 1 : 96 bpm Height: 6'2" SpO2: 96% Temperature: 37.4 (C) / 99.4 (F) Weight: 244 lbs 02/13/2016 Blood Pressure 1: 120/78 Code : 8480-6 BMI: 30.8 Code : 55232-6 Heart Rate 1 : 55 bpm Height: 6'2" SpO2: 98% Weight: 240 lbs 10/19/2015 Blood Pressure 1: 140/88 Code : 8480-6 BMI: 30.0 Code : 06905-9 Heart Rate 1 : 71 bpm Height: 6'2" SpO2: 96% Weight: 234 lbs 05/09/2015 Blood Pressure 1: 138/76 Code : 8480-6 BMI: 30.7 Code : 44863-4 Heart Rate 1 : 54 bpm Height: 6'2" SpO2: 97% Weight: 239 lbs 01/03/2015 Blood Pressure 1: 138/88 Code : 8480-6 BMI: 29.9 Code : 16154-4 Heart Rate 1 : 71 bpm Height: 6'2" SpO2: 98% Temperature: 36.3 (C) / 97.4 (F) Weight: 233 lbs 11/08/2014 Blood Pressure 1: 146/80 Code : 8480-6 Blood Pressure 1: 126/88 Code: 8480-6 BMI: 29.0 Code: 58239-8 Heart Rate 1: 53 bpm Height: 6'2" SpO2: 98% Weight: 226 lbs 07/26/2014 Blood Pressure 1: 128/82 Code : 8480-6 BMI: 29.4 Code : 96400-2 Heart Rate 1 : 72 bpm Height: 6'2" Weight: 229 lbs 06/17/2014 Blood Pressure 1: 130/84 Code : 8480-6 BMI: 30.0 Code : 49631-7 Heart Rate 1 : 60 bpm Height: 6'2" SpO2: 98% Temperature: 36.5 (C) / 97.7 (F) Weight: 234 lbs 04/14/2014 Blood Pressure 1: 132/78 Code : 8480-6 BMI: 29.3 Code : 36892-4 Heart Rate 1 : 78 bpm Height: 6'2" Weight: 228 lbs 04/05/2014 Blood Pressure 1: 136/76 Code : 8480-6 BMI: 30.3 Code : 91222-9 Heart Rate 1 : 88 bpm Height: 6'2" Weight: 236 lbs 12/28/2013 Blood Pressure 1: 138/76 Code : 8480-6 BMI: 29.4 Code : 26576-2 Heart Rate 1 : 68 bpm Height: 6'2" Weight: 229 lbs 10/04/2013 Blood Pressure 1: 150/96 Code : 8480-6 BMI: 29.4 Code : 30052-3 Heart Rate 1 : 68 bpm Height: 6'2" Weight: 229 lbs 08/24/2013 Blood Pressure 1: 142/84 Code : 8480-6 BMI: 29.1 Code : 70013-9 Heart Rate 1 : 68 bpm Height: 6'2" SpO2: 98% Weight: 227 lbs 05/11/2013 Blood Pressure 1: 156/82 Code : 8480-6 BMI: 31.1 Code : 93373-2 Heart Rate 1 : 72 bpm Height: 6'2" Weight: 242 lbs 04/27/2013 Blood Pressure 1: 202/100 Code: 8480-6 BMI: 31.6 Code: 38275-8 Heart Rate 1: 100 bpm Height : [...] data Encounters Encounter Performer Location Codes Date ([id number]) 28184 EST. PATIENT, LEVEL III Diagnosis: Essential (primary) hypertension[ICD10: I10] Diagnosis: Mixed hyperlipidemia[ICD10: E78.2] Nicole Hernandez MD, [facility] CPT-4: 71343 01/19/2018 [id number]) 39029 EST. PATIENT, LEVEL IV Diagnosis: Essential (primary) hypertension[ICD10: I10] Diagnosis: Mixed hyperlipidemia[ICD10: E78.2] Nicole Hernandez MD, [facility] CPT-4: 44285 08/12/2017 99553 EST. PATIENT, LEVEL IV Diagnosis: Other malaise[ICD10: R53.81] Diagnosis: Other allergic rhinitis[ICD10: J30.89] Cortney Hernandez MD, [facility] CPT-4: 60678 03/05/2017 [id number]) 52327 EST. PATIENT, LEVEL III Diagnosis: Essential (primary) hypertension[ICD10: I10] Diagnosis: Mixed hyperlipidemia[ICD10: E78.2] Nicole Hernandez MD, [facility] CPT-4: 80379 02/11/2017 ([id number]) PREV VISIT EST AGE 40-64 Diagnosis: Encounter for general adult medical examination with abnormal findings[ICD10: Z00.01] Diagnosis: Essential (primary) hypertension[ICD10: I10] Diagnosis: Mixed hyperlipidemia[ICD10: E78.2] Diagnosis: Impaired fasting glucose[ICD10: R73.01] Nicole Hernandez MD, [facility] CPT-4: 91706 08/14/2016 ([id number]) 10363 EST. PATIENT, LEVEL III Diagnosis: Abrasion, right lower leg, initial encounter[ICD10: S80.811A] Diagnosis: Cough[ICD10: R05] [facility] CPT-4: 32948 05/06/2016 ([id number]) 93309 EST. PATIENT, LEVEL III Diagnosis: Essential (primary) hypertension[ICD10: I10] Diagnosis: Mixed hyperlipidemia[ICD10: E78.2] Nicole Hernandez MD, [facility] CPT-4: 44721 02/13/2016 ([id number]) 39110 EST. PATIENT, LEVEL IV Diagnosis: Essential (primary) hypertension[ICD10: I10] Diagnosis: Pain in right knee[ICD10: M25.561] Diagnosis: Pain in left knee[ICD10: M25.562] Nicole Hernandez MD, [facility] CPT-4: 87397 10/19/2015 ([id number]) 61764 EST. PATIENT, LEVEL III Diagnosis: Essential (primary) hypertension[ICD10: I10] Diagnosis: Mixed hyperlipidemia[ICD10: E78.2] Diagnosis: Primary generalized (osteo)arthritis[ICD10: M15.0] Diagnosis: Bilateral primary osteoarthritis of knee[ICD10: M17.0] [facility] CPT-4: 22424 05/09/2015 ([id number]) 99358 EST. PATIENT, LEVEL III Diagnosis: Acute upper respiratory infection, unspecified[ICD10: J06.9] [facility] CPT-4: 94640 01/03/2015 ([id number]) PREV VISIT EST AGE 40-64 Diagnosis: Routine medical exam[ICD9: V70.0] [facility] CPT-4: 38280 11/08/2014 ([id number]) 53469 EST. PATIENT, LEVEL IV Diagnosis: DIABETES TYPE II[ICD9: 250.00] Diagnosis: ESSENTIAL HYPERTENSION[ICD9: 401.9] Nicole Hernandez MD, [facility] CPT-4: 61346 07/26/2014 ([id number]) 50577 EST. PATIENT, LEVEL II Diagnosis: Rash[ICD9: 782.1] Susana Hernandez MD, [facility] CPT-4: 44721 06/17/2014 ([id number]) 34818 EST. PATIENT, LEVEL III Diagnosis: Elevated blood sugar[ICD9: 790.29] Diagnosis: Elevated hemoglobin[ICD9: 282.7] Nicole Hernandez MD, [facility] CPT-4: 50594 04/14/2014 ([id number]) 67081 EST. PATIENT, LEVEL IV Diagnosis: Right flank pain[ICD9: 789.09] Diagnosis: Sacroiliitis[ICD9: 720.2] Diagnosis: ESSENTIAL HYPERTENSION[ICD9: 401.9] Diagnosis: Elevated blood sugar[ICD9: 790.29] Susana Hernandez MD, [facility] CPT-4: 72606 04/05/2014 ([id number]) 62684 EST. PATIENT, LEVEL III Diagnosis: ESSENTIAL HYPERTENSION[ICD9: 401.9] Nicole Hernandez MD, [facility] CPT-4: 62615 12/28/2013 ([id number]) 00610 EST. PATIENT, LEVEL III Diagnosis: TMJ arthralgia[ICD9: 524.62] Nicole Hernandez MD, [facility] CPT- 4: 77082 10/04/2013 ([id number]) 08617 EST. PATIENT, LEVEL IV Diagnosis: ESSENTIAL HYPERTENSION[ICD9: 401.9] Diagnosis: HYPERLIPIDEMIA[ICD9: 272.4] Diagnosis: Elevated bilirubin[ICD9: 782.4] Nicole Hernandez MD, [facility] CPT- 4: 67895 08/24/2013 ([id number]) 91088 EST. PATIENT, LEVEL IV Diagnosis: HYPERLIPIDEMIA[ICD9: 272.4] Diagnosis: ESSENTIAL HYPERTENSION[SNOMED: 07581498] Diagnosis: Abnormal glucose[ICD9: 790.29] Nicole Hernandez MD, [facility] CPT- 4: 00903 05/11/2013 ([id number]) OFFICE VISIT, NEW - LEVEL 3 Diagnosis: ESSENTIAL HYPERTENSION[SNOMED: 93840623] Diagnosis: External hordeolum[ICD9: 373.11] [facility] CPT-4: 36030 04/27/2013 Plan of Care Planned Activity Notes Codes Status Date Visit Plan: Hypertension - well controlled - [...] to Dr. Alvarenga for March 2018. 01/19/2018 Patient Education: Patient Medication Summary Completed 01/19/2018 Patient Education: Cholesterol Management Completed 01/19/2018 Care Plan: Referral Order SNOMED-CT : [id number] Pending 01/19/2018 Visit Plan: Hypertension - well [...] response to medications. 08/12/2017 Appointment: Nicole Hernandez WPtel: [address] [place], [place] [id number] (30 min) [facility] 08/12/2017 Patient Education: Patient Medication Summary Completed [...] spray. 03/05/2017 Appointment: Cortney Lynn WPtel: [phone] [id number] (15 min) Moderate 03/05/2017 Patient Education: Patient [...] chronic. 02/11/2017 [facility]ment[facility] [phone] [facility] ([facility] min) Moderate 02/11/2017 Patient Education: Patient [...] to medications. 08/14/2016 Appointment: Nicole Hernandez WPtel: [phone] [facility] Physical 08/14/2016 Patient Education: Patient Medication Summary [...] patient's pharmacy. 05/06/2016 Appointment: Susana Cottrell WPtel: [phone] [phone] [place] (15 min) Moderate 05/06/2016 Patient Education: Patient [...] not improving. 02/13/2016 Appointment: Nicole Hernandez WPtel: [facility] (15 min) Moderate 02/13/2016 Patient Education: Patient [...] Hypertension Completed 10/19/2015 Appointment: Nicole Hernandez WPtel: [facility]5 [facility] (15 min) Moderate 09/11/2015 Visit Plan: Hypertension [...] pain symptoms. 05/09/2015 Appointment: Nicole Hernandez WPtel: [facility] (15 min) Moderate 05/09/2015 Patient Education: Patient Medication Summary Completed 05/09/2015 Patient Education: Obesity Completed 05/09/2015 Patient Education: Hypertension Completed 05/09/2015 Care Plan: COMPLETE CBC AUTOMATED LOINC : 01074-1 Ordered 05/09/2015 Visit Plan: URI - Pt [...] renal functioning. 11/08/2014 App[facility]ment: [facility] [phone] [facility] (15 min) Moderate 11/08/2014 Patient Education: Patient [...] less controlled. 07/26/2014 Appointment: [facility] [phone] [facility] Follow up 07/26/2014 Patient Education: Patient Medication Summary Completed 07/26/2014 Patient Education: Hypertension Completed 07/26/2014 Appointment: Follow up 07/15/2014 Visit Plan: Ufmn-xunmbcs-mguz scrubbing rash-stop DESTIN-stop peroxide-Rx for bactroban to [...] at home. 12/28/2013 Appointment: Nicole Hernandez WPtel: [facility] Follow up 12/28/2013 Patient Education: Patient Medication Summary Completed 12/28/2013 Patient Education: Hypertension Completed 12/28/2013 Visit Plan: TMJ - kenalog shot today - pt to call and let us know if the symptoms do not improve. 10/04/2013 Appointment: Nicole Hernandez WPtel: [address] [place], [place] [phone] Sick 10/04/2013 Patient Education: Patient Medication Summary Completed [...] 6 weeks. 08/24/2013 Appointment: [facility] [phone] [facility] Follow up 08/24/2013 Patient Education: Patient Medication [...] 3 months. 05/11/2013 Appointment: [facility] [phone] [facility] [place] Follow up 05/11/2013 Patient Education: Patient Medication [...] 7-10 days. 04/27/2013 Appointment: [facility] [phone] [facility] [place] New Patient 04/27/2013 Patient Education: Patient Medication [...] - check labs in 6 weeks. . Onsk-kxtoerp-tsqj scrubbing rash-stop DESTIN-stop peroxide- Rx for bactroban [...]
--- OUTSIDE RECORDS SUMMARY | 2018-05-09 12:51 | XMS REPORT | Continuity of Care Document ---
Author Author [facility] Organization [facility] Address Unknown Phone Unavailable Allergies Active Description Code Type Severity Reaction Onset Reported/Identified Relationship to Patient Clinical Status Yes No Known Drug Allergies [id number] Drug Allergy Unknown N/A 12/24/2011 Medications There is no data. Problems Date Dx Coded Attending Type Code Diagnosis Diagnosed By 12/26/2011 Ot 550.90 04/26/2014 Ot 550.90 04/26/2014 Ot V72.63 04/26/2014 Ot V72.81 04/26/2014 Ot V74.8 05/24/2014 ANGELIQUE SOLOMON, JÚNIOR Mcdermott Ot 238.4 05/24/2014 ANGELIQUE SOLOMON, JÚNIOR Mcdermott Ot 272.4 05/24/2014 ANGELIQUE SOLOMON, JÚNIOR Mcdermott Ot 278.00 05/24/2014 ANGELIQUE SOLOMON, JÚNIOR Sharron Ot 401.9 05/24/2014 ANGELIQUE SOLOMON, JÚNIOR Mcdermott Ot 782.4 05/24/2014 ANGELIQUE SOLOMON, JÚNIOR Mcdermott Ot V58.69 05/24/2014 ANGELIQUE SOLOMON, JÚNIOR Sharron Ot V85.30 05/26/2014 Ot 272.4 05/26/2014 Ot 277.4 05/26/2014 Ot 289.9 07/25/2014 ANGELIQUE SOLOMON, JÚNIOR Mcdermott Ot 238.4 07/25/2014 ANGELIQUE SOLOMON, JÚNIOR Mcdermott Ot 272.4 07/25/2014 ANGELIQUE SOLOMON, JÚNIOR Mcdermott Ot 278.00 07/25/2014 ANGELIQUE SOLOMON, JÚNIOR Sharron Ot 401.9 07/25/2014 ANGELIQUE SOLOMON, JÚNIOR Sharron Ot 782.4 07/25/2014 ANGELIQUE SOLOMON, JÚNIOR Mcdermott Ot V58.69 07/25/2014 ANGELIQUE SOLOMON, JÚNIOR Mcdermott Ot V85.30 Procedures There is no data. Results There is no data. Encounters ACCT No. Visit Date/Time Discharge Status Pt. Type Provider Facility Loc./Unit Complaint [id number] 07/26/2014 00:10:00 07/26/2014 23:59:59 CLS Preadmit JÚNIOR MERINO MD [facility] ONC [id number] 05/10/2014 14:49:00 07/25/2014 00:01:00 DIS Outpatient ANGELIQUE SOLOMON, JÚNOIR Mcdermott [facility] ONC [id number] 02/19/2013 09:12:00 02/19/2013 23:59:59 CLS Outpatient [id number] 08/28/2012 17:54:00 08/28/2012 23:59:59 CLS Outpatient [id number] 05/11/2014 07:55:00 Document Registration [id number] 12/26/2011 05:51:00 Document Registration [id number] 12/24/2011 15:42:00 Document Registration 0000 08/09/2016 23:05:32 08/09/2016 23:59:59 CLS Outpatient
[2018-05-09] MEDS ORDERED: NS IV 1000 ML 1,000 ML IV SCH (13:15)
[2018-05-09] MEDS ORDERED: KETOROLAC 30 MG/ML VIAL IVP ONE (13:15)
[2018-05-09] MEDS ORDERED: ONDANSETRON 4 MG/2 ML (SDV) Z0FRAN IVP ONE (13:15)
[2018-05-09] MEDS ORDERED: fentaNYL INJECTION 100 MCG/2 ML AMP IVP ONE (13:15)
[2018-05-09 13:22] LABS: BASOPHILS % (AUTO) 0 % (0-10); EOSINOPHILS % (AUTO) 0 % (0-10); HEMATOCRIT 49 % (40-54); HEMOGLOBIN 17.5 G/DL (13.3-17.7); LYMPHOCYTES % (AUTO) 7 % (12-44); MEAN CORPUSCULAR HEMOGLOBIN 31 PG (25-34); MEAN CORPUSCULAR HGB CONC 36 G/DL (32-36); MEAN CORPUSCULAR VOLUME 85 FL (80-99); MEAN PLATELET VOLUME 10.4 FL (7.4-10.4); MONOCYTES # (AUTO) 0.8 X 10^3 (0.0-1.0); MONOCYTES % (AUTO) 6 % (0-12); NEUTROPHILS # (AUTO) 12.6 X 10^3 (1.8-7.8); NEUTROPHILS % (AUTO) 87 % (42-75); PLATELET COUNT 181 10^3/uL (130-400); RED CELL DISTRIBUTION WIDTH 13.1 % (10.0-14.5); WHITE BLOOD COUNT 14.4 10^3/uL (4.3-11.0)
[2018-05-09 13:25] LABS: BILIRUBIN,URINE NEGATIVE (NEGATIVE); CLARITY,URINE CLEAR; COLOR,URINE YELLOW; GLUCOSE, URINE (UA) NEGATIVE (NEGATIVE); KETONES,URINE 1+ (NEGATIVE); LEUKOCYTE ESTERASE ,URINE 1+ (NEGATIVE); NITRITE,URINE NEGATIVE (NEGATIVE); PH,URINE 8 (5-9); PROTEIN,URINE 2+ (NEGATIVE); UROBILINOGEN,URINE NORMAL (NORMAL)
[2018-05-09 13:40] LABS: ALANINE AMINOTRANSFERASE 27 U/L (0-55); ALKALINE PHOSPHATASE 48 U/L (40-136); AMYLASE 40 U/L (25-125); BILIRUBIN,TOTAL 2.4 MG/DL (0.1-1.0); BUN/CREATININE RATIO 14; CALCIUM 10.5 MG/DL (8.5-10.1); CARBON DIOXIDE 22 MMOL/L (21-32); CHLORIDE 102 MMOL/L (98-107); CREATININE SERUM 1.42 MG/DL (0.60-1.30); GFR ESTIMATED 51; GLUCOSE 127 MG/DL (70-105); LIPASE 23 U/L (8-78); POTASSIUM 4.1 MMOL/L (3.6-5.0); SODIUM 137 MMOL/L (135-145); TOTAL PROTEIN 7.8 GM/DL (6.4-8.2)
[2018-05-09 13:45] LABS: WBC,URINE RARE /HPF
[2018-05-09 13:46] LABS: BACTERIA,URINE TRACE /HPF
--- NOTE | 2018-05-09 13:48 | Diagnostic Imaging Report ---
INDICATION: Left-sided flank pain. COMPARISON: 02/19/2013. DISCUSSION: Two views of the abdomen were obtained. There is a 4 mm stone projected over the left renal bed. Additional 2 mm stone is also projected over the left renal bed. These likely represent nonobstructing renal calculi. There is no definite stone along the course of either ureter. Postoperative changes are present within the right lower quadrant, stable. No acute osseous abnormality. Unremarkable bowel gas pattern. IMPRESSION: 1. Nonobstructing left renal calculi. Dictated by: Dictated on workstation # [id number]
--- NOTE | 2018-05-09 13:54 | Diagnostic Imaging Report ---
PROCEDURE: CT urinary tract, rule out kidney stone. TECHNIQUE: Multiple contiguous axial images were obtained through the abdomen and pelvis without the use of intravenous contrast. INDICATION: Left-sided flank pain. COMPARISON: 05/11/2014. DISCUSSION: The lung bases are well-aerated. Normal heart size. No pleural or pericardial fluid. The liver, gallbladder, pancreas, stomach, spleen, and adrenal glands are unremarkable. Nonobstructing left renal calculi are noted measuring up to 4 mm. There is mild hydronephrosis on the left. There is a 2-3 mm stone within the distal left ureter approximately 3 cm from the ureterovesical junction. The urinary bladder is decompressed. Prostate is normal in size. The appendix is normal. No obstruction, pneumatosis, pneumoperitoneum. No ascites or pathologically enlarged lymph nodes identified. Shotty appearing adenopathy is noted within the retroperitoneum. No acute osseous abnormality identified. The aorta is normal in caliber. IMPRESSION: 1. 2-3 mm stone within the distal left ureter contributing to mild hydronephrosis. Additional nonobstructing left renal calculi. Dictated by: Dictated on workstation # [id number]
[2018-05-09 14:06] LABS: BAND NEUTROPHILS 11 %; HYPERSEGMENTED NEUT SLIGHT; LYMPHOCYTES % (MANUAL) 3 %; MONOCYTES % (MANUAL) 9 %; NEUTROPHILS % (MANUAL) 77 %
[2018-05-09 14:07] LABS: RBC MORPH NORMAL; TOXIC GRANULATION/VACUOLAZATIO 1+
--- NOTE | 2018-05-09 14:23 | ED Abdominal Pain ---
General Chief Complaint: Abdominal/GI Problems Stated Complaint: KIDNEY STONES Nursing Triage Note: ARRIVED VIA AMB TO TRIAGE. COMPLAINS OF LEFT SIDED FLANK PAIN. HX OF KIDNEY STONES. Sepsis Screen: No Definite Risk Source of Information: Patient Exam Limitations: No Limitations History of Present Illness Date Seen by Provider: May 09, 2018 Time Seen by Provider: 13:00 Allergies and Home Medications Allergies Coded Allergies: No Known Drug Allergies (Unverified , 12/24/11) Home Medications Hydrocodone Bit/Acetaminophen 1 Tab Tab, 1 EACH PO Q4-6HR PRN for PAIN-MODERATE Prescribed by: CHEYENNE CAMERON on 05/09/18 1436 Multivitamin 1 Each Tablet, 1 EACH PO DAILY, (Reported) [place] 3 Polyunsat Fatty Acids 1,000 Mg Cap, 1,000 MG PO DAILY, (Reported) Ondansetron HCl 4 Mg Tab, 4 MG PO Q4H Prescribed by: CHEYENNE CAMERON on 05/09/18 1436 Oxycodone Hcl/Acetaminophen 1 Each Tablet, 1-2 EACH PO every 4-6 hours PRN, ( Reported) Sulfamethoxazole/Trimethoprim 1 Each Tablet, 1 EACH PO BID Prescribed by: CHEYENNE CAMERON on 05/09/18 1436 Past Vzujuqi-Unxyjl-Qiaekv Hx Patient Social History Recent Foreign Travel: No Contact w/Someone Who Travel: No Recent Infectious Disease Expo: No Past Medical History Reproductive Disorders: No Physical Exam Vital Signs Vital Signs - First Documented 05/09/18 12:45 Temp 98.7 Pulse 70 Resp 16 B/P (MAP) 158/78 (104) Pulse Ox 96 O2 Delivery Room Air Capillary Refill : Less Than 3 Seconds Height/Weight/BMI Height: 6'2.00" Weight: 218lbs. oz. 98.290551nm; BMI Method:Stated Progress/Results/Core Measures Results/Orders Lab Results Laboratory Tests Test 05/09/18 12:50 05/09/18 13:15 Range/Units Urine Color YELLOW Urine Clarity CLEAR Urine pH 8 5-9 Urine Specific [place] 1.010 L 1.016-1.022 Urine Protein 2+ H NEGATIVE Urine Glucose (UA) NEGATIVE NEGATIVE Urine Ketones 1+ H NEGATIVE Urine Nitrite NEGATIVE NEGATIVE Urine Bilirubin NEGATIVE NEGATIVE Urine Urobilinogen NORMAL NORMAL MG/DL Urine Leukocyte Esterase 1+ H NEGATIVE Urine RBC (Auto) NEGATIVE NEGATIVE Urine RBC NONE /HPF Urine WBC RARE /HPF Urine Crystals NONE /LPF Urine Bacteria TRACE /HPF Urine Casts NONE /LPF Urine Mucus NEGATIVE /LPF Urine Culture Indicated NO White Blood Count 14.4 H 4.3-11.0 10^3/uL Red Blood Count 5.71 4.35-5.85 10^6/uL Hemoglobin 17.5 13.3-17.7 G/DL Hematocrit 49 40-54 % Mean Corpuscular Volume 85 80-99 FL Mean Corpuscular Hemoglobin 31 25-34 PG Mean Corpuscular Hemoglobin Concent 36 32-36 G/DL Red Cell Distribution Width 13.1 10.0-14.5 % Platelet Count 181 130-400 10^3/uL Mean Platelet Volume 10.4 7.4-10.4 FL Neutrophils (%) (Auto) 87 H 42-75 % Lymphocytes (%) (Auto) 7 L 12-44 % Monocytes (%) (Auto) 6 0-12 % Eosinophils (%) (Auto) 0 0-10 % Basophils (%) (Auto) 0 0-10 % Neutrophils # (Auto) 12.6 H 1.8-7.8 X 10^3 Lymphocytes # (Auto) 1.0 1.0-4.0 X 10^3 Monocytes # (Auto) 0.8 0.0-1.0 X 10^3 Eosinophils # (Auto) 0.0 0.0-0.3 10^3/uL Basophils # (Auto) 0.0 0.0-0.1 10^3/uL Neutrophils % (Manual) 77 % Lymphocytes % (Manual) 3 % Monocytes % (Manual) 9 % Band Neutrophils 11 % Hypersegmented Neutrophils SLIGHT Toxic Granulation 1+ Dohle Bodies SLIGHT Blood Morphology Comment NORMAL Sodium Level 137 135-145 MMOL/L Potassium Level 4.1 3.6-5.0 MMOL/L Chloride Level 102 98-107 MMOL/L Carbon Dioxide Level 22 21-32 MMOL/L Anion Gap 13 5-14 MMOL/L Blood Urea Nitrogen 20 H 7-18 MG/DL Creatinine 1.42 H 0.60-1.30 MG/DL Estimat Glomerular Filtration Rate 51 BUN/Creatinine Ratio 14 Glucose Level 127 H 70-105 MG/DL Calcium Level 10.5 H 8.5-10.1 MG/DL Corrected Calcium 8.5-10.1 MG/DL Total Bilirubin 2.4 H 0.1-1.0 MG/DL Aspartate Amino Transf (AST/SGOT) 32 5-34 U/L Alanine Aminotransferase (ALT/SGPT) 27 0-55 U/L Alkaline Phosphatase 48 40-136 U/L Total Protein 7.8 6.4-8.2 GM/DL Albumin 5.0 H 3.2-4.5 GM/DL Amylase Level 40 25-125 U/L Lipase 23 8-78 U/L My Orders Orders - CHEYENNE CAMERON Comprehensive Metabolic Panel (05/09/18 13:09) Lipase (05/09/18 13:09) Amylase (05/09/18 13:09) Ua Culture If Indicated (05/09/18 13:09) Saline Lock/Iv-Start (05/09/18 13:09) Cbc With Automated Diff (05/09/18 13:09) Ct Abd/Pelvis Wo(Kidney Stone) (05/09/18 13:09) Abdomen/Kub 1[place] (05/09/18 13:09) Ns Iv 1000 Ml (Sodium Chloride 0.9%) (05/09/18 13:15) Fentanyl Injection (Sublimaze Injection (05/09/18 13:15) Ondansetron Injection (Zofran Injectio (05/09/18 13:15) Ketorolac Injection (Toradol Injection) (05/09/18 13:15) Manual Differential (05/09/18 13:15) Medications Given in ED Current Medications Medications Dose Ordered Sig/Edson Route Start Time Stop Time Status Last Admin Dose Admin Fentanyl Citrate 50 mcg ONCE ONCE IVP 05/09/18 13:15 05/09/18 13:16 DC 05/09/18 13:23 50 MCG Ketorolac Tromethamine 15 mg ONCE ONCE IVP 05/09/18 13:15 05/09/18 13:16 DC 05/09/18 13:28 15 MG Ondansetron HCl 8 mg ONCE ONCE IVP 05/09/18 13:15 05/09/18 13:16 DC 05/09/18 13:23 8 MG Vital Signs/I&O 05/09/18 12:45 Temp 98.7 Pulse 70 Resp 16 B/P (MAP) 158/78 (104) Pulse Ox 96 O2 Delivery Room Air Blood Pressure Mean: 104 Departure Impression Primary Impression: Kidney stones Disposition: 01 HOME, SELF-CARE Condition: Stable/Unchanged Departure-Patient Inst. Decision time for Depature: 14:32 Referrals: IBETH GOMEZ MD (PCP/Family) Primary Care Physician LIDIA JOSEPH MD Patient Instructions: Kidney Stones (DC) Add. Discharge Instructions: Take medications as directed. Call Dr. Joseph's office first thing Friday to schedule an appointment time. Strain all urine and if you should pass the stone take it with you to your appointment at Dr. Joseph's office. Return back to the emergency room for worsening symptoms or concerns as needed. All discharge instructions reviewed with patient and/or family. Voiced understanding. Scripts Sulfamethoxazole/Trimethoprim (Bactrim Ds Tablet) 1 Each Tablet 1 EACH PO BID for 7 Days, #14 TAB Prov: CHEYENNE CAMERON 05/09/18 Ondansetron HCl (Zofran) 4 Mg Tab 4 MG PO Q4H, #14 TAB Prov: CHEYENNE CAMERON 05/09/18 Hydrocodone Bit/Acetaminophen (Hydrocodone/Acetaminophen 5/325mg Tablet) 1 Tab Tab 1 EACH PO Q4-6HR PRN for PAIN-MODERATE MDD 10, #14 TAB Prov: CHEYENNE CAMERON 05/09/18 CHEYENNE CAMERON May 09, 2018 14:23
[2018-05-09] MEDS ORDERED: SULF1TAB35 PO (14:36)
[2018-05-09] MEDS ORDERED: ONDN4T PO (14:36)
[2018-05-09] MEDS ORDERED: ACHD5005 PO (14:36)
[2018-05-09 15:00] VITALS: BP 138/87
== END 2018-05-09 15:00 | disposition home or self-care (01) ==
LOC: EDUNIT# 12:40 → ER 12:42
DX: N13.2 Hydronephrosis with renal and ureteral calculous obstruction (principal)
CPT/HCPCS: 36415; 74018; 74176; 80053; 81000; 82150; 83690; 85007; 85027

== ENCOUNTER → 2018-05-12 | Outpatient (CLI) | payer OTHER ==
[~2018-05-12] MED LIST changes: +ACHD5005 PO; +FENO130C5 PO; +METO-387 PO; +ONDN4T PO; +SULF1TAB35 PO
--- NOTE | 2018-05-12 17:18 | Diagnostic Imaging Report ---
INDICATION: Left nephrolithiasis EXAM: KUB at 3:12 PM FINDINGS: There is a 6 mm elongated calcification projecting over the proximal left ureter that could be a calculus. There is a large amount of stool throughout the colon. IMPRESSION: Possible calculus, left proximal ureter. Dictated by: Dictated on workstation # [id number]
== END ==
LOC: RAD 14:57
PROVIDERS: ATTEND Urology
DX: N20.2 Calculus of kidney with calculus of ureter (principal)
CPT/HCPCS: 74018

== ENCOUNTER 2018-05-13 13:43 | Outpatient (CLI) | payer OTHER ==
[~2018-05-13] VITALS: Ht 188 cm; Wt 98.9 kg
[~2018-05-13 13:43] MED LIST changes: -CIPR-225 PO; -FENO130C5 PO; -HYDR-3870 PO; -METO-387 PO; -PHEN-640 PO; -TAMS0.4C98 PO
[2018-05-13] MEDS ORDERED: METO-387 PO (15:01)
[2018-05-13] MEDS ORDERED: FENO130C5 PO (15:01)
== END 2018-05-13 15:12 | disposition home or self-care (01) ==
LOC: PREOP 13:43
PROVIDERS: ATTEND Urology
DX: Z01.818 Encounter for other preprocedural examination (principal)

== ENCOUNTER → 2018-05-13 | Outpatient (CLI) | payer OTHER ==
[~2018-05-13] MED LIST changes: +CIPR-225 PO; +HYDR-3870 PO; +PHEN-640 PO; +TAMS0.4C98 PO
--- NOTE | 2018-05-13 13:44 | Diagnostic Imaging Report ---
INDICATION: Followup left ureteral stone. TIME OF EXAM: 12:01 p.m. COMPARISON: Correlation is made with prior study from one day earlier. FINDINGS: Calcific density in the left abdomen seen on yesterday's study is in similar position, just lateral to the left L2 transverse process. The bowel gas pattern is unremarkable. No other suspicious calcifications are seen. IMPRESSION: No change in left abdominal calcification position when compared with the examination one day earlier. Dictated by: Dictated on workstation # [id number]
== END ==
LOC: RAD 11:48
PROVIDERS: ATTEND Urology
DX: N20.2 Calculus of kidney with calculus of ureter (principal)
CPT/HCPCS: 74018

== ENCOUNTER 2018-05-15 09:46 | Day surgery (SDC) | payer OTHER ==
[~2018-05-15] VITALS: Ht 188 cm; Wt 98.9 kg
[~2018-05-15 09:46] MED LIST changes: +FENO130C5 PO; +METO-387 PO
[2018-05-15 09:50] VITALS: BP 146/94
--- NOTE | 2018-05-15 10:21 | Diagnostic Imaging Report ---
INDICATION: Ureteroscopy. Time of exam: 10:02 AM Correlation made with prior study from 05/13/2018. Calcific density just lateral to the left L2 transverse process is unchanged. No other suspicious calcifications are seen. Bowel gas pattern is unremarkable. IMPRESSION: Left abdominal calcification, unchanged in position when compared with examination from 2 days earlier. This does project in the region of the proximal left ureter. Dictated by: Dictated on workstation # [id number]
[2018-05-15] MEDS ORDERED: LACTATED RINGERS 1,000 ML IV PRN (10:23)
[2018-05-15] MEDS: LACTATED RINGERS 1,000 ML IV PRN ×2 (10:30→13:17)
[2018-05-15] MEDS ORDERED: CATHETER FLUSH 10 ML SYR IV PRN (10:30)
[2018-05-15] MEDS ORDERED: cefTRIAXone FOR IV USE 1,000 MG in WATER (STERILE) FOR INJECTION 10 ML IV ONE (10:30)
[2018-05-15] MEDS ORDERED: DEXAMETHASONE 10 MG/ML (DECADRON) 1 ML VIAL ONE (11:38)
[2018-05-15] MEDS ORDERED: ONDANSETRON 4 MG/2 ML (SDV) Z0FRAN ONE (11:38)
[2018-05-15] MEDS ORDERED: LIDOCAINE PF 2% 5 ML (XYLOCAINE) VIAL ONE (11:38)
[2018-05-15] MEDS ORDERED: SEVOFLURANE (ULTANE) 15 ML INHAL SOLN ONE (11:38)
[2018-05-15] MEDS ORDERED: proPOfol 200 MG/20 ML (DIPRIVAN) VIAL IV ONE (11:38)
[2018-05-15] MEDS ORDERED: fentaNYL INJECTION 100 MCG/2 ML AMP ONE (11:39)
[2018-05-15] MEDS ORDERED: MIDAZOLAM 2 MG/2 ML (VERSED) VIAL ONE (11:39)
--- NOTE | 2018-05-15 12:06 | Progress Note-Pre Operative ---
Pre-Operative Progress Note H&P Reviewed The H&P was reviewed, patient examined and no changes noted. Date Seen by Provider: May 15, 2018 Time Seen by Provider: 12:06 Date H&P Reviewed: May 15, 2018 Time H&P Reviewed: 12:06 Pre-Operative Diagnosis: LT URETERAL STONES LIDIA JOSEPH MD May 15, 2018 12:06
[2018-05-15] MEDS ORDERED: PHENYLEPHRINE 100 MCG/ML 10 ML (ANESTHESIA) SYR ONE (12:30)
--- NOTE | 2018-05-15 13:03 | Progress Note-Post Operative ---
Post-Operative Progess Note Surgeon (s)/Roll Hand (s) Surgeon LIDIA JOSEPH MD Roll Hand: NONE Pre-Operative Diagnosis LT URETERAL STONES Post-Operative Diagnosis SAME Procedure & Operative Findings Date of Procedure 05/15/18 Procedure Performed/Findings LT URETEROSCOPY, STONE MANIPULATION AND STENT Anesthesia Type GENERAL Estimated Blood Loss Estimated blood loss (mL): NONE Specimens/Packing Specimens Removed NONE Packing: NONE LIDIA JOSEPH MD May 15, 2018 13:03
--- NOTE | 2018-05-15 13:06 | Discharge Inst-Urology ---
Discharge Inst-Urology Discharge Medications New, Converted, or Re-newed RX: RX on Chart Patient Instructions/Follow Up Plan Patient to come to office on Friday 05/26 at 2pm, KUB prior to it. KUB on way home today Increase oral fluids for 48 hours and then as needed. Diet and Activity as tolerated. If questions or concerns contact your physician Or seek help at emergency department. LIDIA JOSEPH MD May 15, 2018 13:06
[2018-05-15] MEDS ORDERED: ONDANSETRON 4 MG/2 ML (SDV) Z0FRAN IVP PRN (13:15)
[2018-05-15] MEDS ORDERED: morphine INJ 10 MG/ML 1ML (SYR OR VIAL) IVP ONE (13:15)
--- NOTE | 2018-05-15 13:39 | Anesthesia-General Post-Op ---
General Patient Condition Mental Status/LOC: Same as Preop Cardiovascular: Satisfactory Nausea/Vomiting: Absent Respiratory: Satisfactory Pain: Controlled Complications: Absent Post Op Complications Complications None Follow Up Care/Instructions Patient Instructions None needed. Anesthesia/Patient Condition Patient Condition Patient is doing well, no complaints, stable vital signs, no apparent adverse anesthesia problems. No complications reported per nursing. CHEN LOPEZ CRNA May 15, 2018 13:39
[2018-05-15 13:55] VITALS: BP 135/92
[2018-05-15] MEDS ORDERED: CIPR-225 PO (14:02)
[2018-05-15] MEDS ORDERED: TAMS0.4C98 PO (14:02)
[2018-05-15] MEDS ORDERED: PHEN-640 PO (14:02)
[2018-05-15] MEDS ORDERED: HYDR-3870 PO (14:02)
[2018-05-15 14:25] VITALS: BP 151/88
[2018-05-15 14:55] VITALS: BP 137/76
--- NOTE | 2018-05-15 15:00 | Diagnostic Imaging Report ---
INDICATION: Nephroureteral stent placement. TIME OF EXAM: 02:32 p.m. Double-J nephroureteral stent has been placed since prior exam. Previously noted calcific density overlies the proximal portion of the stent. Bowel gas pattern is unremarkable. Right-sided urinary tracts are unremarkable. IMPRESSION: Placement of left-sided double-J nephroureteral stent. Dictated by: Dictated on workstation # [id number]
--- NOTE | 2018-05-15 21:03 | OPERATIVE REPORT ---
DATE OF SERVICE: 05/15/2018 PREOPERATIVE DIAGNOSIS: Left ureteral stones. POSTOPERATIVE DIAGNOSIS: Left ureteral stones, one proximal and one distal. OPERATION PERFORMED: Attempted left ureteroscopy, stone manipulation, insertion of left stent. SURGEON: Az Joseph MD ANESTHESIA: General. COMPLICATIONS: None. DESCRIPTION OF PROCEDURE: Under satisfactory general anesthesia, the patient in lithotomy position, genitalia were prepped and draped in usual sterile fashion. Cystoscope was introduced under vision. The anterior urethra was normal. The prostate was nonobstructing, but had a median bar. Entering the bladder revealed some trabeculation. Ureteral orifices normal in shape, size and configuration with clear efflux, sluggish on the left side. Using the foroblique lens, I dilated the left ureteral orifice intramural portion and then I could see resistance of the distal stone. I could not push this catheter beyond it. I removed the cystoscope, inserted the ureteroscope. I was unable to manipulate the curve of the distal ureter. I did not want to force the issue being ahead of the game, so I removed the ureteroscope, reinserted the cystoscope. I was able to pass a 6-[place] 28 cm double-J stent with some manipulation bypassed the distal ureteral stone or maybe disimpacted it and then pushed the proximal stone into the kidney and passed a stent all the way to the renal pelvis. I removed the guidewire. The stent was seen draining nicely proximally fluoroscopically and distally endoscopically. Bladder was evacuated and the cystoscope was removed. The patient tolerated the procedure and anesthesia well and was sent to recovery room in stable condition. PLAN: We will bring him back on 05/26/2018 and to plan on 05/27/2018 when ESWL machine is back here to do first a left ureteroscopy for the lower stone on his own, then an as ESWL for the left proximal stone. This was fully explained to his and daughter and preoperatively to the patient. Job ID: [id number] DocumentID: [id number] Dictated Date: 05/15/2018 13:09:07 [employer] Date: 05/15/2018 21:03:29 Dictated By: AZ JOSEPH MD
== END 2018-05-15 15:05 | disposition home or self-care (01) ==
LOC: SDC 09:46
PROVIDERS: ATTEND Urology
DX: N20.1 Calculus of ureter (principal); I10 Essential (primary) hypertension; N40.0 Benign prostatic hyperplasia without lower urinary tract symptoms; Z79.899 Other long term (current) drug therapy
CPT/HCPCS: 74018; 87081

== ENCOUNTER 2018-05-26 06:22 | Outpatient (CLI) | payer OTHER ==
[~2018-05-26] VITALS: Ht 188 cm; Wt 98.9 kg
[2018-05-27] MEDS ORDERED: CIPR-225 PO (12:15)
[2018-05-27] MEDS ORDERED: HYDR-3870 PO (12:15)
[2018-05-27] MEDS ORDERED: TAMS0.4C98 PO (12:15)
== END 2018-05-26 15:17 | disposition home or self-care (01) ==
LOC: PREOP 06:22
PROVIDERS: ATTEND Urology
DX: Z01.818 Encounter for other preprocedural examination (principal)

== ENCOUNTER → 2018-05-26 | Outpatient (CLI) | payer OTHER ==
[~2018-05-26] MED LIST changes: +CIPR-225 PO; +HYDR-3870 PO; +PHEN-640 PO; +TAMS0.4C98 PO
--- NOTE | 2018-05-26 15:10 | Diagnostic Imaging Report ---
INDICATION: Left nephrolithiasis. EXAMINATION: KUB at 12:15 PM. FINDINGS: There is a left double-J ureteral stent in place. There is a 7 mm calculus projecting over the inferior pole of the left kidney. The bowel gas pattern is normal. There are postop changes from right inguinal hernia repair. IMPRESSION: Left nephrolithiasis. There is a left-sided double-J ureteral stent. Dictated by: Dictated on workstation # [id number]
== END ==
LOC: RAD 12:50
PROVIDERS: ATTEND Urology
DX: N20.2 Calculus of kidney with calculus of ureter (principal); Z96.0 Presence of urogenital implants
CPT/HCPCS: 74018

== ENCOUNTER 2018-05-27 06:41 | Day surgery (SDC) | payer OTHER ==
[~2018-05-27] VITALS: Ht 188 cm; Wt 98.9 kg
--- OUTSIDE RECORDS SUMMARY | 2018-05-27 06:48 | XMS REPORT | Continuity of Care Document ---
Author Author [facility] Organization [facility] Address Unknown Phone Unavailable Allergies Active Description Code Type Severity Reaction Onset Reported/Identified Relationship to Patient Clinical Status Yes No Known Drug Allergies [id number] Drug Allergy Unknown N/A 12/24/2011 Medications There is no data. Problems Date Dx Coded Attending Type Code Diagnosis Diagnosed By 12/26/2011 Ot 550.90 04/26/2014 Ot 550.90 04/26/2014 Ot V72.63 04/26/2014 Ot V72.81 04/26/2014 Ot V74.8 05/24/2014 ANGELIQUE SOLOMON, JÚNIOR Mcdermott Ot 238.4 05/24/2014 ANGELIQUE SOLOMON, JÚNIOR Mcdermott Ot 272.4 05/24/2014 ANGELIQUE SOLOMON, JÚNIOR Mcdermott Ot 278.00 05/24/2014 JÚNIOR MERINO MD Ot 401.9 05/24/2014 ANGELIQUE SOLOMON, JÚNIOR Mcdermott Ot 782.4 05/24/2014 JÚNIOR MERINO MD Ot V58.69 05/24/2014 JÚNIOR MERINO MD Ot V85.30 05/26/2014 Ot 272.4 05/26/2014 Ot 277.4 05/26/2014 Ot 289.9 07/25/2014 ANGELIQUE SOLOMON, JÚNIOR Mcdermott Ot 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 07/25/2014 ANGELIQUE SOLOMON, JÚNIOR Mcdermott Ot 272.4 HYPERLIPIDEMIA NEC/NOS 07/25/2014 ANGELIQUE SOLOMON, JÚNIOR Mcdermott Ot 278.00 OBESITY, NOS 07/25/2014 JÚNIOR MERINO MD Ot 401.9 HYPERTENSION NOS 07/25/2014 JÚNIOR MERINO MD Ot 782.4 JAUNDICE NOS 07/25/2014 JÚNIOR MERINO MD Ot V58.69 OTH MED,LT,CURRENT USE 07/25/2014 JÚNIOR MERINO MD Ot V85.30 BODY MASS INDEX 30.0-30.9, ADULT 05/09/2018 CHEYENNE CAMERON Ot 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 URETERAL C 05/09/2018 CHEYENNE CAMERON Ot R10.9 UNSPECIFIED ABDOMINAL PAIN 05/09/2018 Ot 272.4 HYPERLIPIDEMIA NEC/NOS 05/09/2018 Ot 277.4 DIS BILIRUBIN EXCRETION 05/09/2018 Ot 289.9 BLOOD DISEASE NOS 05/09/2018 JÚNIOR MERINO MD Ot 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 05/09/2018 JÚNIOR MERINO MD Ot 272.4 HYPERLIPIDEMIA NEC/NOS 05/09/2018 JÚNIOR MERINO MD Ot 278.00 OBESITY, NOS 05/09/2018 JÚNIOR MERINO MD Ot 401.9 HYPERTENSION NOS 05/09/2018 JÚNIOR MERINO MD Ot 782.4 JAUNDICE NOS 05/09/2018 ANGELIQUE SOLOMON JÚNIOR Sharron Ot V58.69 OTH MED,LT,CURRENT USE 05/09/2018 JÚNIOR MERINO MD Ot V85.30 BODY MASS INDEX 30.0-30.9, ADULT 05/12/2018 BERNCHEYENNE ACEVES Ot 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 URETERAL C 05/12/2018 BERNCHEYENNE ACEVES Ot R10.9 UNSPECIFIED ABDOMINAL PAIN 05/13/2018 Ot 272.4 HYPERLIPIDEMIA NEC/NOS 05/13/2018 Ot 277.4 DIS BILIRUBIN EXCRETION 05/13/2018 Ot 289.9 BLOOD DISEASE NOS 05/13/2018 ANGELIQUE SOLOMON JÚNIOR Sharron Ot 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 05/13/2018 JÚNIOR MERINO MD Ot 272.4 HYPERLIPIDEMIA NEC/NOS 05/13/2018 ANGELIQUE SOLOMON JÚNIOR Sharron Ot 278.00 OBESITY, NOS 05/13/2018 ANGELIQUE SOLOMON JÚNIOR Sharron Ot 401.9 HYPERTENSION NOS 05/13/2018 JÚNIOR MERINO MD Ot 782.4 JAUNDICE NOS 05/13/2018 ANGELIQUE SOLOMON JÚNIOR Sharron Ot V58.69 OTH MED,LT,CURRENT USE 05/13/2018 ANGELIQUE SOLOMON JÚNIOR Sharron Ot V85.30 BODY MASS INDEX 30.0-30.9, ADULT 05/13/2018 LIDIA JOSEPH MD Ot N20.2 CALCULUS OF KIDNEY WITH CALCULUS OF URET 05/13/2018 LIDIA JOSEPH MD Ot Z01.818 ENCOUNTER FOR OTHER PREPROCEDURAL EXAMIN 05/15/2018 Ot 272.4 HYPERLIPIDEMIA NEC/NOS 05/15/2018 Ot 277.4 DIS BILIRUBIN EXCRETION 05/15/2018 Ot 289.9 BLOOD DISEASE NOS 05/15/2018 JÚNIOR MERINO MD Ot 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 05/15/2018 ANGELIQUE SOLOMON, JÚNIOR Mcdermott Ot 272.4 HYPERLIPIDEMIA NEC/NOS 05/15/2018 ANGELIQUE SOLOMON, JÚNIOR Mcdermott Ot 278.00 OBESITY, NOS 05/15/2018 ANGELIQUE SOLOMON, JÚNIOR Sharron Ot 401.9 HYPERTENSION NOS 05/15/2018 ANGELIQUE OSLOMON, JÚNIOR Sharron Ot 782.4 JAUNDICE NOS 05/15/2018 ANGELIQUE SOLOMON, JÚNIOR Sharron Ot V58.69 OTH MED,LT,CURRENT USE 05/15/2018 ANGELIQUE SOLOMON, JÚNIOR Sharron Ot V85.30 BODY MASS INDEX 30.0-30.9, ADULT 05/15/2018 LIDIA JOSEPH MD Ot N20.2 CALCULUS OF KIDNEY WITH CALCULUS OF URET 05/15/2018 LIDIA JOSEPH MD, Ot N20.2 CALCULUS OF KIDNEY WITH CALCULUS OF URET 05/15/2018 LIDIA JOSEPH MD, Ot I10 ESSENTIAL (PRIMARY) HYPERTENSION 05/15/2018 LIDIA JOSEPH MD Ot N20.1 CALCULUS OF URETER 05/15/2018 LIDIA JOSEPH MD Ot N40.0 BENIGN PROSTATIC HYPERPLASIA WITHOUT LOW 05/15/2018 LIDIA JOSEPH MD, Ot Z79.899 OTHER HALF-WAY (CURRENT) DRUG THERAPY 05/18/2018 LIDIA JOSEPH MD Ot I10 ESSENTIAL (PRIMARY) HYPERTENSION 05/18/2018 LIDIA JOSEPH MD, Ot N20.1 CALCULUS OF URETER 05/18/2018 LIDIA JOSEPH MD, Ot N40.0 BENIGN PROSTATIC HYPERPLASIA WITHOUT LOW 05/18/2018 LIDIA JOSEPH MD, Ot Z79.899 OTHER HALF-WAY (CURRENT) DRUG THERAPY 05/19/2018 LIDIA JOSEPH MD, Ot N20.2 CALCULUS OF KIDNEY WITH CALCULUS OF URET 05/20/2018 CHEYENNE CAMERON Ot 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 URETERAL C 05/20/2018 CHEYENNE CAMERON Ot R10.9 UNSPECIFIED ABDOMINAL PAIN 05/27/2018 LIDIA JOSEPH MD, Ot N20.2 CALCULUS OF KIDNEY WITH CALCULUS OF URET 05/27/2018 LIDIA JOSEPH MD, Ot Z96.0 PRESENCE OF UROGENITAL IMPLANTS Procedures There is no data. Results Test Result Range Complete urinalysis with reflex to culture - 05/09/18 12:50 Urine color determination YELLOW NRG Urine clarity determination CLEAR NRG Urine pH measurement by test strip 8 5-9 Specific gravity of urine by test strip 1.010 1.016- 1.022 Urine protein assay by test strip, semi-quantitative 2+ NEGATIVE Urine glucose detection by automated test strip NEGATIVE NEGATIVE Erythrocytes detection in urine sediment by light microscopy NEGATIVE NEGATIVE Urine ketones detection by automated test strip 1+ NEGATIVE Urine nitrite detection by test strip NEGATIVE NEGATIVE Urine total bilirubin detection by test strip NEGATIVE NEGATIVE Urine urobilinogen measurement by automated test strip (mass/volume) NORMAL NORMAL Urine leukocyte esterase detection by dipstick 1+ NEGATIVE Automated urine sediment erythrocyte count by microscopy (number/high power field) NONE NRG Automated urine sediment leukocyte count by microscopy (number/high power field ) RARE NRG Bacteria detection in urine sediment by light microscopy TRACE NRG Crystals detection in urine sediment by light microscopy NONE NRG Casts detection in urine sediment by light microscopy NONE NRG Mucus detection in urine sediment by light microscopy NEGATIVE NRG Complete urinalysis with reflex to culture NO NRG Complete blood count (CBC) with automated white blood cell (WBC) differential - 05/09/18 13:15 Blood leukocytes automated count (number/volume) 14.4 10*3/uL 4.3-11.0 Blood erythrocytes automated count (number/volume) 5.71 10*6/uL 4.35-5.85 Venous blood hemoglobin measurement (mass/volume) 17.5 g/dL 13.3-17.7 Blood hematocrit (volume fraction) 49 % 40-54 Automated erythrocyte mean corpuscular volume 85 [foz_us] 80-99 Automated erythrocyte mean corpuscular hemoglobin (mass per erythrocyte) 31 pg 25-34 Automated erythrocyte mean corpuscular hemoglobin concentration measurement ( mass/volume) 36 g/dL 32-36 Automated erythrocyte distribution width ratio 13.1 % 10.0-14.5 Automated blood platelet count (count/volume) 181 10*3/uL 130-400 Automated blood platelet mean volume measurement 10.4 [foz_us] 7.4-10.4 Automated blood neutrophils/100 leukocytes 87 % 42-75 Automated blood lymphocytes/100 leukocytes 7 % 12-44 Blood monocytes/100 leukocytes 6 % 0-12 Automated blood eosinophils/100 leukocytes 0 % 0-10 Automated blood basophils/100 leukocytes 0 % 0-10 Blood neutrophils automated count (number/volume) 12.6 10*3 1.8-7.8 Blood lymphocytes automated count (number/volume) 1.0 10*3 1.0-4.0 Blood monocytes automated count (number/volume) 0.8 10*3 0.0-1.0 Automated eosinophil count 0.0 10*3/uL 0.0-0.3 Automated blood basophil count (count/volume) 0.0 10*3/uL 0.0-0.1 Comprehensive metabolic panel - 05/09/18 13:15 Serum or plasma sodium measurement (moles/volume) 137 mmol/L 135-145 Serum or plasma potassium measurement (moles/volume) 4.1 mmol/L 3.6-5.0 Serum or plasma chloride measurement (moles/volume) 102 mmol/L 98-107 Carbon dioxide 22 mmol/L 21-32 Serum or plasma anion gap determination (moles/volume) 13 mmol/L 5-14 Serum or plasma urea nitrogen measurement (mass/volume) 20 mg/dL 7-18 Serum or plasma creatinine measurement (mass/volume) 1.42 mg/dL 0.60-1.30 Serum or plasma urea nitrogen/creatinine mass ratio 14 NRG Serum or plasma creatinine measurement with calculation of estimated glomerular filtration rate 51 NRG Serum or plasma glucose measurement (mass/volume) 127 mg/dL 70-105 Serum or plasma calcium measurement (mass/volume) 10.5 mg/dL 8.5-10.1 Serum or plasma total bilirubin measurement (mass/volume) 2.4 mg/dL 0.1-1.0 Serum or plasma alkaline phosphatase measurement (enzymatic activity/volume) 48 U/L 40-136 Serum or plasma aspartate aminotransferase measurement (enzymatic activity/ volume) 32 U/L 5-34 Serum or plasma alanine aminotransferase measurement (enzymatic activity/volume ) 27 U/L 0-55 Serum or plasma protein measurement (mass/volume) 7.8 g/dL 6.4-8.2 Serum or plasma albumin measurement (mass/volume) 5.0 g/dL 3.2-4.5 Serum or plasma amylase measurement (enzymatic activity/volume) - 05/09/18 13: 15 Serum or plasma amylase measurement (enzymatic activity/volume) 40 U /L 25-125 Lipase - 05/09/18 13:15 Lipase 23 U/L 8-78 Blood manual differential performed detection - 05/09/18 13:15 Blood monocytes/100 leukocytes 9 % NRG Manual blood segmented neutrophils/100 leukocytes 77 % NRG Blood band neutrophils/100 leukocytes 11 % NRG Manual blood lymphocytes/100 leukocytes 3 % NRG Blood erythrocyte morphology finding identification NORMAL NRG Blood toxic granules detection by light microscopy 1+ NRG Blood dohle body detection by light microscopy SLIGHT NRG Blood hypersegmented neutrophils detection by light microscopy SLIGHT NRG Methicillin resistant Staphylococcus aureus (MRSA) screening culture - 10:26 Methicillin resistant Staphylococcus aureus (MRSA) screening culture NEG NRG Encounters ACCT No. Visit Date/Time Discharge Status Pt. Type Provider Facility Loc./Unit Complaint [id number] 05/26/2018 06:22:00 05/26/2018 15:17:00 DIS Outpatient LIDIA JOSEPH MD [facility] PREOP LEFT CYSTO, STONEBASKETING; LEFT ESWL [id number] 05/15/2018 09:46:00 05/15/2018 15:05:00 DIS Outpatient LIDIA JOSEPH MD [facility] SDC STONE [id number] 05/13/2018 11:48:00 05/13/2018 23:59:59 CLS Outpatient LIDIA JOSEPH MD [facility] RAD LT URETERAL AND LT RENAL STONE [id number] 05/13/2018 13:43:00 05/13/2018 15:12:00 DIS Outpatient LIDIA JOSEPH MD [facility] PREOP STONE [id number] 05/12/2018 14:57:00 05/12/2018 23:59:59 CLS Outpatient LIDIA JOSEPH MD [facility] RAD LT URETERAL STONES [id number] 05/09/2018 12:42:00 05/09/2018 15:00:00 DIS Outpatient CHEYENNE CAMERON [facility] ER KIDNEY STONES [id number] 07/26/2014 00:10:00 07/26/2014 23:59:59 CLS JÚNIOR Gray MD [facility] ONC [id number] 05/10/2014 14:49:00 07/25/2014 00:01:00 DIS Outpatient ANGELIQUE SOLOMON, JÚNIOR Mcdermott [facility] ONC [id number] 02/19/2013 09:12:00 02/19/2013 23:59:59 CLS Outpatient [id number] 08/28/2012 17:54:00 08/28/2012 23:59:59 CLS Outpatient [id number] 05/27/2018 06:41:00 ACT Outpatient LIDIA JOSEPH MD [facility] SDC LEFT RENAL STONE [id number] 05/26/2018 12:50:00 ACT Outpatient LIDIA JOSEPH MD [facility] RAD RENAL STONES N20.0 [id number] 05/11/2014 07:55:00 Document Registration [id number] 12/26/2011 05:51:00 Document Registration [id number] 12/24/2011 15:42:00 Document Registration 0000 08/09/2016 23:05:32 08/09/2016 23:59:59 CLS Outpatient
[2018-05-27 07:00] VITALS: BP 141/78
--- NOTE | 2018-05-27 07:09 | Progress Note-Pre Operative ---
Pre-Operative Progress Note H&P Reviewed The H&P was reviewed, patient examined and no changes noted. Date Seen by Provider: May 27, 2018 Time Seen by Provider: 07:09 Date H&P Reviewed: May 27, 2018 Time H&P Reviewed: 07:09 Pre-Operative Diagnosis: LT DISTAL URETERAL AND RENAL STONES LIDIA JOSEPH MD May 27, 2018 07:09
[2018-05-27] MEDS ORDERED: LACTATED RINGERS 1,000 ML IV PRN (07:21)
[2018-05-27] MEDS ORDERED: CATHETER FLUSH 10 ML SYR IV PRN (07:30)
[2018-05-27] MEDS ORDERED: cefTRIAXone FOR IV USE 1,000 MG in WATER (STERILE) FOR INJECTION 10 ML IV ONE (07:30)
--- NOTE | 2018-05-27 07:55 | Diagnostic Imaging Report ---
INDICATION: Left renal calculi. COMPARISON STUDY: KUB from yesterday. FINDINGS: Supine view of the abdomen demonstrates stable calculi measuring approximately 5 to 6 mm just inferior lateral to the top of the left ureteral stent. A small calcification is present adjacent to the ureteral stent in the pelvis. This is unchanged. This appears to be just above the bladder. IMPRESSION: 1. Stable ureteral stent with calcification adjacent to the distal aspect and calcification within the kidney. Dictated by: Dictated on workstation # [id number]
[2018-05-27] MEDS ORDERED: MIDAZOLAM 2 MG/2 ML (VERSED) VIAL ONE (08:46)
[2018-05-27] MEDS ORDERED: fentaNYL INJECTION 100 MCG/2 ML AMP ONE (08:46)
[2018-05-27] MEDS ORDERED: DEXAMETHASONE 10 MG/ML (DECADRON) 1 ML VIAL ONE (09:18)
[2018-05-27] MEDS ORDERED: KETOROLAC 30 MG/ML VIAL ONE (09:18)
[2018-05-27] MEDS ORDERED: LIDOCAINE PF 2% 5 ML (XYLOCAINE) VIAL ONE (09:18)
[2018-05-27] MEDS ORDERED: FUROSEMIDE 40 MG/4 ML INJ (LASIX) ONE (09:18)
[2018-05-27] MEDS ORDERED: SEVOFLURANE (ULTANE) 15 ML INHAL SOLN ONE (09:18)
[2018-05-27] MEDS ORDERED: ONDANSETRON 4 MG/2 ML (SDV) Z0FRAN ONE (09:18)
[2018-05-27] MEDS ORDERED: GLYCOPYRROLATE 0.2 MG/ML (ROBINUL) 2 ML VIAL ONE (09:18)
[2018-05-27] MEDS ORDERED: proPOfol 200 MG/20 ML (DIPRIVAN) VIAL IV ONE (09:18)
[2018-05-27] MEDS ORDERED: NEOSTIGMINE 1 MG/ML 5 ML SYRINGE ONE (09:18)
[2018-05-27] MEDS ORDERED: ROCURONIUM 10 MG/ML 5 ML SYRINGE IV ONE (09:18)
--- NOTE | 2018-05-27 10:24 | Progress Note-Post Operative ---
Post-Operative Progess Note Surgeon (s)/Mobile Sales Assistant (s) Surgeon LIDIA JOSEPH MD Mobile Sales Assistant: NONE Pre-Operative Diagnosis LT DISTAL URETERAL AND RENAL STONES Post-Operative Diagnosis SAME Procedure & Operative Findings Date of Procedure 05/27/18 Procedure Performed/Findings CYSTOSCOPY WITH REMOVAL OF LT STENT, LT URETEROSCOPY WITH STONE BASKET AND LT ESWL Anesthesia Type GENERAL Estimated Blood Loss Estimated blood loss (mL): NONE Specimens/Packing Specimens Removed LT URETERAL STONE FOR ANALYSIS Packing: NONE LIDIA JOSEPH MD May 27, 2018 10:24
--- NOTE | 2018-05-27 10:26 | Discharge Inst-Urology ---
Discharge Inst-Urology Discharge Medications New, Converted, or Re-newed RX: RX on Chart Patient Instructions/Follow Up Plan Please make appointment to been seen in office in 2 weeks. KUB prior to it KUB on way home Post ESWL instructions Increase oral fluids for 48 hours and then as needed. Diet and Activity as tolerated. If questions or concerns contact your physician Or seek help at emergency department. LIDIA JOSEPH MD May 27, 2018 10:26
[2018-05-27] MEDS ORDERED: ONDANSETRON 4 MG/2 ML (SDV) Z0FRAN IVP PRN (11:00)
[2018-05-27] MEDS ORDERED: HYDROmorphone 2 MG/ML VIAL (DILAUDID) IV ONE (11:00)
[2018-05-27 11:40] VITALS: BP 133/92
[2018-05-27 12:10] VITALS: BP 125/68
[2018-05-27] MEDS ORDERED: TAMS0.4C98 PO (12:15)
[2018-05-27] MEDS ORDERED: HYDR-3870 PO (12:15)
[2018-05-27] MEDS ORDERED: CIPR-225 PO (12:15)
[2018-05-27 12:40] VITALS: BP 130/90
[2018-05-27 12:50] VITALS: BP 130/90
--- NOTE | 2018-05-27 12:50 | NUR ---
VOIDING LIGHT DULL CRAVEN COLORED URINE WITHOUT PROBLEM. URINE STRAINED, NO STONE PARTICLES OBTAINED. PAIN RATED 1. REQUESTING DISMISSAL.
--- NOTE | 2018-05-27 13:28 | Anesthesia-General Post-Op ---
General Patient Condition Mental Status/LOC: Same as Preop Cardiovascular: Satisfactory Nausea/Vomiting: Absent Respiratory: Satisfactory Pain: Controlled Complications: Absent Post Op Complications Complications None Follow Up Care/Instructions Patient Instructions None needed. Anesthesia/Patient Condition Patient Condition Patient is doing well, no complaints, stable vital signs, no apparent adverse anesthesia problems. No complications reported per nursing. MEAGAN PATTERSON CRNA May 27, 2018 13:28
--- NOTE | 2018-05-27 13:29 | Diagnostic Imaging Report ---
INDICATION: Post ESWL. COMPARISON: 05/27/2018. FINDINGS: The left-sided double-J stent has been removed. No appreciable radiopaque stone along the expected course of the left ureter is found on followup. Calcification previously overlying the left kidney can no longer be visualized. IMPRESSION: No visualized stone. Interval stent removal. No adverse development. Dictated by: Dictated on workstation # [id number]
--- NOTE | 2018-05-27 13:41 | OPERATIVE REPORT ---
DATE OF SERVICE: 05/27/2018 PREOPERATIVE DIAGNOSES: Left distal ureteral and left renal stones. POSTOPERATIVE DIAGNOSES: Left distal ureteral and left renal stones. OPERATIONS: Cystoscopy, removal of left ureteral stent, left ureteroscopy with stone basket and left ESWL. SURGEON: Az Joseph MD. ANESTHESIA: General. COMPLICATIONS: None. DESCRIPTION OF PROCEDURE: Under satisfactory general anesthesia and the patient in lithotomy position, genitalia were prepped and draped in the usual sterile fashion. Cystoscope was introduced under vision. The anterior urethra was normal. The prostate was small, but there was a median bar. Bladder was entered and revealed some trabeculation. The distal end of the left ureteral stent was grasped with a grasping forceps and extracted completely. I removed the cystoscope and inserted a left ureteroscope, went into the left ureteral orifice and up to the level of the stone. It was seen accessible by basket and smoking, so I did not want to try to do lithotripsy and lose the stone proximally, so I engaged it with a 3-Luxembourger Busby basket and extracted it completely. I went back with the ureteroscope to confirm the integrity of the ureter and no further stones or fragments. I removed ureteroscope, reinserted the cystoscope to empty the bladder and then moved the patient to the ESWL table. The left renal stone was localized. Shocks were delivered at a kV of 4. A total of 2000 shocks completely fragmented the stone and it was not visible anymore. The patient received 40 mg of Lasix and 30 mg of Toradol IV at the end of the procedure. He tolerated the procedure and anesthesia well and was sent to the recovery room in stable condition. Job ID: [id number] DocumentID: [id number] Dictated Date: 05/27/2018 10:39:40 [employer] Cutting Machine Operator Date: 05/27/2018 13:40:20 Dictated By: [place] JOSEPH MD
== END 2018-05-27 12:50 | disposition home or self-care (01) ==
LOC: SDC 06:41
PROVIDERS: ATTEND Urology
DX: N20.2 Calculus of kidney with calculus of ureter (principal); I10 Essential (primary) hypertension; N40.0 Benign prostatic hyperplasia without lower urinary tract symptoms; Z79.899 Other long term (current) drug therapy
CPT/HCPCS: 74018; 87081

== ENCOUNTER → 2018-06-11 | Outpatient (CLI) | payer OTHER ==
--- NOTE | 2018-06-11 11:10 | Diagnostic Imaging Report ---
INDICATION: Nephrolithiasis KUB at 8:25 AM FINDINGS: Bowel gas pattern is normal. There are no pathologic masses or calcifications. IMPRESSION: No acute abnormalities are see in the abdomen. Dictated by: Dictated on workstation # [id number]
== END ==
LOC: RAD 08:12
PROVIDERS: ATTEND Urology
DX: N20.2 Calculus of kidney with calculus of ureter (principal)
CPT/HCPCS: 74018

== ENCOUNTER 2021-11-07 08:26 | Outpatient (RCR) | payer MEDICARE, OTHER ==
[~2021-11-07 08:26] MED LIST changes: +FENO130C11 PO; -FENO130C5 PO; -METO-387 PO; +MTP25TSR PO; -SULF1TAB35 PO; +SULF1TAB38 PO; -TAMS0.4C98 PO; +TMSL.4C PO
== END 2021-11-30 | disposition home or self-care (01) ==
LOC: ONC 08:26
PROVIDERS: ATTEND Radiology Radiation Oncology
DX: C61 Malignant neoplasm of prostate (principal); I10 Essential (primary) hypertension; E78.00 Pure hypercholesterolemia, unspecified
CPT/HCPCS: 99203

== ENCOUNTER 2021-12-05 05:29 | Outpatient (CLI) | payer MEDICARE ==
[~2021-12-05] VITALS: Ht 182.9 cm; Wt 101.4 kg
[2021-12-06] MEDS ORDERED: OMEG100032 PO (11:06)
[2021-12-06] MEDS ORDERED: [UNRECOGNIZED DRUG - CODE] TP (11:06)
[2021-12-06] MEDS ORDERED: MTP25TSR PO (11:06)
== END 2021-12-06 13:37 | disposition home or self-care (01) ==
LOC: PREOP 05:29
PROVIDERS: ATTEND Specialist
DX: Z01.818 Encounter for other preprocedural examination (principal)

== ENCOUNTER 2021-12-12 11:07 | Day surgery (SDC) | payer MEDICARE ==
[2021-12-12] VITALS (10 sets, daily range): BP systolic 118–139; BP diastolic 62–86
[~2021-12-12] VITALS: Ht 182.9 cm; Wt 101.4 kg
[~2021-12-12 11:07] MED LIST changes: +OMEG100032 PO; +[UNRECOGNIZED DRUG - CODE] TP
[2021-12-12] MEDS ORDERED: LACTATED RINGERS 1,000 ML IV PRN (11:15)
--- NOTE | 2021-12-12 11:37 | Progress Note-Pre Operative ---
Pre-Operative Progress Note Date of Available H&P: Dec 04, 2021 Date H&P Reviewed: Dec 12, 2021 Time H&P Reviewed: 11:00 History & Physical: H&P Reviewed, No changes noted Pre-Operative Diagnosis: Prostate cancer cT1c, PSA 6.24, [place] 7 (3+4) Krista GOYAL MD Dec 12, 2021 11:37
--- NOTE | 2021-12-12 11:48 | Discharge Inst-Surgical ---
Discharge Inst-Surgical Reconcile Patient Problems Problems Reviewed?: Yes Depart Medication/Instructions New, Converted or Re-Newed RX: Other (Patient already has) Consults/Follow Up Goal/Follow Up Appt.: Treatment planning ct scan at [facility] cancer center scheduled for 12/26/21 at 9:00 a.m. Please drink 1/2 bottle of oral contrast at 8:30 a.m. prior to coming in for scan. Activity Activity as Tolerated: Yes Diet Discharge Diet: No Restrictions Krista GOYAL MD Dec 12, 2021 11:48
[2021-12-12] MEDS ORDERED: LIDOCAINE PF 2% 5 ML (XYLOCAINE) VIAL ONE (13:58)
[2021-12-12] MEDS ORDERED: ONDANSETRON 4 MG/2 ML (SDV) Z0FRAN ONE (13:58)
[2021-12-12] MEDS ORDERED: proPOfol 200 MG/20 ML (DIPRIVAN) VIAL IV ONE (13:58)
[2021-12-12] MEDS ORDERED: fentaNYL INJ 100 MCG/2 ML AMP ONE (13:58)
--- NOTE | 2021-12-12 14:41 | Progress Note-Post Operative ---
Post-Operative Progess Note Surgeon (s)/Lsat Instructor (s) Surgeon Krista GOYAL MD Lsat Instructor: N/A Pre-Operative Diagnosis Prostate cancer cT1c, PSA 6.24, [place] 7 (3+4) Post-Operative Diagnosis Same as preop Procedure & Operative Findings Date of Procedure 12/12/21 Procedure Performed/Findings (1) Placement of 3 fiducial gold seed markers (2) Injection of biodegradable hydrogel prostate-rectal spacer utilizing the [email or web address] [place] system Anesthesia Type General Estimated Blood Loss Estimated blood loss (mL): None Specimens/Packing Specimens Removed None Packing: None Krista GOYAL MD Dec 12, 2021 14:41
[2021-12-12] MEDS ORDERED: morphine INJ 10 MG/ML 1ML (SYR OR VIAL) IVP ONE (14:45)
[2021-12-12] MEDS ORDERED: ONDANSETRON 4 MG/2 ML (SDV) Z0FRAN IVP PRN (14:45)
--- NOTE | 2021-12-14 07:08 | Anesthesia-General Post-Op ---
General Patient Condition Mental Status/LOC: Same as Preop Cardiovascular: Satisfactory Nausea/Vomiting: Absent Respiratory: Satisfactory Pain: Controlled Complications: Absent Post Op Complications Complications None Follow Up Care/Instructions Patient Instructions None needed. Anesthesia/Patient Condition Patient Condition Patient was doing well in PACU after the procedure with no complaints, stable vital signs, no apparent adverse anesthesia problems. No complications reported per nursing. JOYCE MOELLER DO Dec 14, 2021 07:08
== END 2021-12-12 16:20 ==
LOC: SDC 11:07
PROVIDERS: ATTEND Specialist
DX: C61 Malignant neoplasm of prostate (principal); Z87.891 Personal history of nicotine dependence
CPT/HCPCS: 55874; 55876; 87081; C1889

== ENCOUNTER 2021-12-26 08:50 | Outpatient (RCR) | payer MEDICARE | END 2021-12-31 | LOC: ONC 08:50 | PROVIDERS: ATTEND Radiology Radiation Oncology | DX: Z51.0 Encounter for antineoplastic radiation therapy (principal); C61 Malignant neoplasm of prostate | CPT/HCPCS: 77300; 77301; 77334; 77338 ==

== ENCOUNTER → 2022-01-30 | Outpatient (RCR) | payer MEDICARE | END | disposition home or self-care (01) | LOC: ONC 01-01 14:16 | PROVIDERS: ATTEND Radiology Radiation Oncology | DX: Z51.0 Encounter for antineoplastic radiation therapy (principal); C61 Malignant neoplasm of prostate; I10 Essential (primary) hypertension; E78.00 Pure hypercholesterolemia, unspecified | CPT/HCPCS: 77336; 77385 ==

== ENCOUNTER 2022-02-11 08:45 | Outpatient (RCR) | payer MEDICARE | END 2022-03-02 | disposition home or self-care (01) | LOC: ONC 08:45 | PROVIDERS: ATTEND Radiology Radiation Oncology | DX: Z51.0 Encounter for antineoplastic radiation therapy (principal); C61 Malignant neoplasm of prostate | CPT/HCPCS: 77336; 77385 ==

== ENCOUNTER 2022-03-28 09:28 | Outpatient (RCR) | payer MEDICARE | END 2022-04-02 | disposition home or self-care (01) | LOC: ONC 09:28 | PROVIDERS: ATTEND Radiology Radiation Oncology | DX: C61 Malignant neoplasm of prostate (principal) | CPT/HCPCS: G0103; G0463; 36415; 84153; 99213 ==

== ENCOUNTER 2022-09-26 08:48 | Outpatient (RCR) | payer MEDICARE | END 2022-09-30 | disposition home or self-care (01) | LOC: ONC 08:48 | PROVIDERS: ATTEND Radiology Radiation Oncology | DX: C61 Malignant neoplasm of prostate (principal) | CPT/HCPCS: 84153; G0463; 36415; 99213 ==